=== PATIENT | female | born 1950 | race Caucasian/White ===

== ENCOUNTER 2017-10-03 10:52 | Emergency (ER) | payer OTHER ==
[~2017-10-03] VITALS: Ht 162.6 cm; Wt 76.6 kg
[2017-10-03 10:57] VITALS: TEMP 36.7; Ht 162.6 cm; Wt 76.6 kg
--- NOTE | 2017-10-03 11:26 | EMERGENCY ROOM VISIT NOTE ---
History Report prepared by Karley: Deja Ybarra Under the Supervision of: Dr. Jose Martin Marroquin M.D. First contact with patient: 11:05 Chief Complaint: SWELLING TO EXTREMITY Stated Complaint: LEG LACERATION - POSSIBLE INFECTION Nursing Triage Summary: Right kimball laceration that had sutures removed 6 days ago. Has been on keflex and doxycycline, but RLE infection not improving. RLE edema, erythema, and pain. 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 Positive erythema, pain. Negative fevers, chills, history of blood clots. The patient reports she got a cut on her leg by slipping off a bench. 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 She has been on Keflex and doxycycline , but her infection is not improving. The patient is also taking Tylenol which she states slightly alleviates her pain. 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 Review of Systems See HPI for pertinent positives and negatives. A total of ten systems were reviewed and were otherwise negative. Past Medical & Surgical Medical Problems: (1) Cancer Family History Cancer Heart disease Social History Smoking Status: Never Smoker Alcohol Use: none Drug Use: none Marital Status: Housing Status: lives with significant other Occupation Status: retired Current/Historical Medications Scheduled Calcium/Vitamin D (Os-Gabriele 500 Plus D), 1 TAB PO DAILY Doxycycline (Monohydrate) (Doxycycline), 1 TAB PO BID Furosemide (Lasix), 1 TAB PO DAILY Letrozole (Femara), 2.5 MG PO DAILY Scheduled PRN Acetaminophen (Tylenol), 1,000 MG PO UD PRN for Pain Allergies Coded Allergies: Sulfa Drugs (Verified Allergy, Unknown, 10/03/17) Physical Exam Vital Signs Date Time Temp Pulse Resp B/P (MAP) Pulse Ox O2 Delivery O2 Flow Rate FiO2 10/03/17 13:17 80 10/03/17 13:15 72 17 128/82 95 10/03/17 12:26 76 17 121/89 95 Room Air 10/03/17 10:57 36.7 83 18 149/84 98 Room Air Physical Exam GENERAL: Awake, alert, well-appearing, NAD HENT: Normocephalic, atraumatic. EYES: Normal conjunctiva. Sclera non-icteric. PERRL. No anisocoria. NECK: Supple. No nuchal rigidity. FROM. RESPIRATORY: CTAB, no rhonchi, wheezing, crackles CARDIAC: RRR, no MRG ABDOMEN: Soft, NTND, BS+ MSK: No chest wall TTP, 1+ BLE edema. NEURO: GCS 15, CN 2-12 intact, moves all 4s on command SKIN: No rash or jaundice noted. Healing 6 cm laceration over the R anterior mid tibia. Mild surrounding redness. Mild pain, no calor, no purulent drainage, no induration, no fluctuance. Medical Decision & Procedures Laboratory Results 10/03/17 11:30 Red Blood Count 4.38, Mean Corpuscular Volume 86.1, Mean Corpuscular Hemoglobin 29.0, Mean Corpuscular Hemoglobin Concent 33.7, Mean Platelet Volume 9.6, Neutrophils (%) (Auto) 59.0, Lymphocytes (%) (Auto) 26.0, Monocytes (%) (Auto) 5.7, Eosinophils (%) (Auto) 8.6, Basophils (%) (Auto) 0.5, Neutrophils # (Auto) 3.22, Lymphocytes # (Auto) 1.42, Monocytes # (Auto) 0.31, Eosinophils # (Auto) 0.47, Basophils # (Auto) 0.03 10/03/17 11:30 Test 10/03/17 11:30 White Blood Count 5.46 K/uL (4.8-10.8) Red Blood Count 4.38 M/uL (4.2-5.4) Hemoglobin 12.7 g/dL (12.0-16.0) Hematocrit 37.7 % (37-47) Mean Corpuscular Volume 86.1 fL (80-100) Mean Corpuscular Hemoglobin 29.0 pg (25-34) Mean Corpuscular Hemoglobin Concent 33.7 g/dl (32-36) Platelet Count 222 K/uL (130-400) Mean Platelet Volume 9.6 fL (7.4-10.4) Neutrophils (%) (Auto) 59.0 % Lymphocytes (%) (Auto) 26.0 % Monocytes (%) (Auto) 5.7 % Eosinophils (%) (Auto) 8.6 % Basophils (%) (Auto) 0.5 % Neutrophils # (Auto) 3.22 K/uL (1.4-6.5) Lymphocytes # (Auto) 1.42 K/uL (1.2-3.4) Monocytes # (Auto) 0.31 K/uL (0.11-0.59) Eosinophils # (Auto) 0.47 K/uL (0-0.5) Basophils # (Auto) 0.03 K/uL (0-0.2) RDW Standard Deviation 43.1 fL (36.4-46.3) RDW Coefficient of Variation 13.7 % (11.5-14.5) Immature Granulocyte % (Auto) 0.2 % Immature Granulocyte # (Auto) 0.01 K/uL (0.00-0.02) Anion Gap 6.0 mmol/L (3-11) Est Creatinine Clear Calc Drug Dose 93.4 ml/min Estimated GFR () 111.0 Estimated GFR (Non- 95.8 BUN/Creatinine Ratio 25.3 (10-20) Calcium Level 8.9 mg/dl (8.5-10.1) Laboratory results reviewed by me Medications Administered Medications (Trade) Dose Ordered Sig/Pricilla Route Start Time Stop Time Status Last Admin Dose Admin Acetaminophen/ Hydrocodone Bitart ([place] 5/325 Tab) 1 tab ONE PRN PO 10/03/17 11:30 10/03/17 15:17 DC 10/03/17 11:54 1 TAB ED Course 1114: The patient was evaluated in room C5. A complete history and physical exam was performed. 1222: I reevaluated the patient. Discussed results and discharge instructions: She verbalized understanding and agreement. The patient is ready for discharge. 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 Positive erythema, pain. Negative fevers, chills, history of blood clots. Nursing notes reviewed. Ancillary studies and prior records reviewed. Differential diagnosis: Etiologies such as cellulitis, abscess, MRSA infection, DVT, necrotizing fasciitis, dermatitis, drug eruption, as well as others were entertained.. Patient was seen and evaluated the bedside. Patient presented with concern for possible wound infection. The patient had been complaining some right lower extremity edema. The patient has suffered a cut. The patient had been started on Keflex which had been changed to doxycycline approximate 5 days before being switched and had stopped taking the Keflex. Patient did describe may be some serous or sanguinous drainage. She did have some mild discomfort. On exam the wound itself looks well-appearing there is no purulent drainage. Patient does have some mild erythema but it is not warm. No induration or fluctuance. I discussed the with the patient that given that she is 5 days into her 10 day course of doxy and with a fairly well-appearing wound what we could do is obtain some blood work to further evaluate. Patient is agreement with the plan of care. Patient did have a work completed which showed normal white blood cell count. I did explain this to the patient. Given that the patient's wound looks well I think her redness is more related just to the wound as an injury and not so much as infection if so it is localized and the patient does not have an elevated white blood cell count or other systemic symptoms like fevers, chills, or change in blood pressure. Patient was told that she should keep the wound covered with antibiotic ointment and then do a daily dressing change. Patient was told not to soak the extremity. Patient was told she should keep the extremity wrapped and that she could change the dressing daily after she showers. Patient told gentle soap and water is fine. Patient is agreement with plan of care. Patient was given strict follow-up, discharge, and return precautions. All questions were answered. Patient was deemed suitable for outpatient follow-up at this time. Patient agreed with the plan of care and was safely discharged home. Medication Reconcilliation Current Medication List: was personally reviewed by me Blood Pressure Screening Patient's blood pressure: Elevated blood pressure Blood pressure disposition: Elevated BP felt to be situational Impression Primary Impression: Encounter for wound care Additional Impressions: Leg pain Leg swelling Scribe Attestation The scribe's documentation has been prepared under my direction and personally reviewed by me in its entirety. I confirm that the note above accurately reflects all work, treatment, procedures, and medical decision making performed by me. Departure Information Dispostion Home / Self-Care Referrals Issac Greenfield M.D. (PCP) Forms HOME CARE DOCUMENTATION FORM, IMPORTANT VISIT INFORMATION, WORK / SCHOOL INSTRUCTIONS Patient Instructions ED Wound Care, [facility] Additional Instructions Please return to the emergency department if you have worsening or recurrent symptoms not amenable to at-home treatment. Please call for a follow-up appointment with her primary care physician. Please take your medications as prescribed. If you have other concerns and/or complaints please feel free to also call your primary care physician's office or return the ED for further evaluation, management, and treatment. You may take 400 mg Ibuprofen every 12 hours as needed for pain/fever with food unless told by your physician not to take NSAIDs. You may take tylenol 500 mg every 6 hours as needed for pain/fever unless told by your physician to not take it or have liver problems. You may take motrin and tylenol separately or at the same time. Please continue wound care. Please apply antibiotic ointment. Please do a daily dressing change. Please keep your wound covered at all times. Please consider compression stockings for lower extremity swelling. Please make a follow-up appointment with your PCP for next Friday for wound check. Please return if you have worsening redness, swelling, or purulent foul-smelling drainage. Take your medications as prescribed. If taking an antibiotic consider taking a probiotic and/or eating yogurt, but at the least, please take with food as it can cause upset stomach. You have been examined and treated today on an emergency basis only. This is not a substitute for, or an effort to provide, complete comprehensive medical care. It is impossible to recognize and treat all injuries or illnesses in a single emergency department visit. It is therefore important that you follow up closely with [facility], your PCP, and/or your specialist(s). Call as soon as possible for an appointment. Thank you for your time and consideration. I look forward to speaking with you again soon. Please don't hesitate to call us if you have any questions. Problem Qualifiers Additional Impressions: Leg pain Laterality: right Qualified Codes: M79.604 - Pain in right leg
[2017-10-03] MEDS ORDERED: HYDROCODONE/ACETAMIN 5/325MG TAB PO PRN (11:30)
[2017-10-03] MEDS ORDERED: LETR2TAB PO (11:42)
[2017-10-03] MEDS ORDERED: ACET-1256 PO (11:42)
[2017-10-03] MEDS ORDERED: FURO-85 PO (11:42)
[2017-10-03] MEDS ORDERED: CALC500C70 PO (11:42)
[2017-10-03] MEDS ORDERED: DOXY-369 PO (11:42)
[2017-10-03 11:49] LABS: BASO % 0.5 %; BASO ABS # 0.03 K/uL (0-0.2); EOS % 8.6 %; EOS ABS # 0.47 K/uL (0-0.5); HEMATOCRIT 37.7 % (37-47); HEMOGLOBIN 12.7 g/dL (12.0-16.0); IG# 0.01 K/uL (0.00-0.02); LYMPH ABS # 1.42 K/uL (1.2-3.4); MEAN CELL VOLUME 86.1 fL (80-100); MEAN CORPUSCULAR HGB CONC 33.7 g/dl (32-36); MEAN PLATELET VOLUME 9.6 fL (7.4-10.4); MONO % 5.7 %; MONO ABS # 0.31 K/uL (0.11-0.59); NEUT ABS # 3.22 K/uL (1.4-6.5); PLATELET COUNT 222 K/uL (130-400); RED CELL DISTRIBUTION WIDTH CV 13.7 % (11.5-14.5); RED CELL DISTRIBUTION WIDTH SD 43.1 fL (36.4-46.3); WHITE BLOOD COUNT 5.46 K/uL (4.8-10.8)
[2017-10-03 12:05] LABS: CALCIUM 8.9 mg/dl (8.5-10.1); CREATININE 0.61 mg/dl (0.60-1.20); POTASSIUM 3.8 mmol/L (3.5-5.1)
[2017-10-03 13:15] VITALS: BP 128/82; O2SAT 95
[2017-10-03 13:17] VITALS: PULSE 80
== END 2017-10-03 13:15 | disposition home or self-care (01) ==
LOC: C.EDB 10:54 → C.EDC 13:15
DX: Z48.00 Encounter for change or removal of nonsurgical wound dressing (principal); M79.604 Pain in right leg; R60.9 Edema, unspecified; Z88.2 Allergy status to sulfonamides

== ENCOUNTER 2019-09-22 15:28 | Inpatient (IN) ==
[2019-09-22 16:35] LABS: Basophils # (auto) 0.07 K/uL (0-0.2); Basophils % (auto) 1.6 %; Eosinophils # (auto) 0.13 K/uL (0-0.5); Eosinophils % (auto) 2.9 %; Hematocrit (blood only) 36.5 % (37-47); Hemoglobin 12.9 g/dL (12.0-16.0); Immature Granulocytes # (auto) 0.02 K/uL (0.00-0.02); Immature Granulocytes % (auto) 0.4 %; Lymphocytes # (auto) 0.98 K/uL (1.2-3.4); Lymphocytes % (auto) 21.9 %; Mean Corpuscular Hemoglobin 31.2 pg (25-34); Mean Corpuscular Hgb Conc 35.3 g/dL (32-36); Mean Corpuscular Volume 88.4 fL (80-100); Mean Platelet Volume 10.5 fL (7.4-10.4); Monocytes # (auto) 0.57 K/uL (0.11-0.59); Monocytes % (auto) 12.8 %; Neutrophils % (auto) 60.4 %; Platelet Count 168 K/uL (130-400); RDW Coefficient of Variation 15.2 % (11.5-14.5); RDW Standard Deviation 48.6 fL (36.4-46.3); Red Blood Count 4.13 M/uL (4.2-5.4); White Blood Count 4.47 K/uL (4.8-10.8)
[2019-09-22 16:46] LABS: INR 0.9 (0.9-1.1); Partial Thromboplastin Ratio 0.9; Partial Thromboplastin Time 24.7 Seconds (21.0-31.0)
[2019-09-22 16:53] LABS: Alanine Aminotransferase 33 U/L (12-78); Albumin Level 1.9 gm/dl (3.4-5.0); Aspartate Aminotransferase 39 U/L (15-37); BUN Creatinine Ratio 29.9 (10-20); Blood Urea Nitrogen 32 mg/dl (7-18); Carbon Dioxide 36 mmol/L (21-32); Chloride 90 mmol/L (98-107); Est GFR (African American) 62.7; Est GFR (Non-African American) 54.1; Glucose 111 mg/dl (70-99); Potassium 2.8 mmol/L (3.5-5.1); Sodium 135 mmol/L (136-145)
--- NOTE | 2019-09-22 16:58 | XRay Report ---
XR chest 1V portable CLINICAL HISTORY: Dyspnea COMPARISON STUDY: 09/22/2018 FINDINGS: The heart is enlarged. There is a left-sided A-Port catheter. There is aortic tortuosity. T here is mild prominence of mediastinum, likely secondary to slight film rotation in the AP technique. There is mild interstitial thickening. There is no lobar consolidation. There are no significant ple ural effusions.[ IMPRESSION: 1. Cardiomegaly and mild nonspecific interstitial thickening. No evidence of focal pulmonary consolid ation ACT 112: Negative or not required by law. Electronically signed by: Edgardo Bermudez M.D. 09/22/2019 4:56 PM
[2019-09-22 17:05] LABS: Albumin Globulin Ratio 0.5 (0.9-2); Alkaline Phosphatase 132 U/L (45-117); Bilirubin,Total 0.3 mg/dl (0.2-1); Globulin 3.7 gm/dl (2.5-4.0); Total Protein 5.6 gm/dl (6.4-8.2); Troponin I < 0.015 ng/ml (0-0.045)
[2019-09-22] MEDS ORDERED: POTASSIUM CHLORIDE / WTR 10 MEQ/100 ML PLCT IV ONE (17:24)
--- NOTE | 2019-09-22 17:44 | Emergency Department Note ---
Impression & Plan Bilateral pulmonary embolism, Hypokalemia ED Provider Note NAME: ALFIE EATON AGE: 68 SEX: F ARRIVES VIA: Walk-In INFORMANT: [Patient] patient's daughter ED PROVIDER(S): Franklyn Pugh MD CHIEF COMPLAINT: Pulmonary emboli PLAN: Disposition: Admit Condition: [Good] MEDICAL DECISION MAKING: Patient presented to the emergency department by direction of her oncology team. She had CT imaging done today at [facility] and was found to have bilateral pulmonary emboli. She was hemodynamically stable. An IV was established. Blood work was performed. The patient has hypokalemia noted on her chemistry panel. She was given IV potassium. I did discuss the case with her providers at [place]. They felt she could be admitted here. I discussed the case with the [facility] team. The patient will be admitted here for further management and anticoagulation. I refer you to their notes for details on admission and anticoagulation. Triage Nursing notes reviewed and agree them. [Additional history obtained from] patient's daughter and [facility] [Prior medical records reviewed] outpatient CT imaging was concerning for bilateral pulmonary emboli. Vital Signs: reviewed and remarkable for [no significant abnormalities] Differential diagnosis: Pulmonary emboli, hypercoagulability, DVT, cardiac ischemia, aortic dissection, pneumonia, pericarditis, myocarditis, esophageal rupture, GERD, cholecystitis, pancreatitis, musculoskeletal, as well as other pathologies. ER treatment provided: IV potassium Diagnostics interpreted by me: ECG: Rate: 90 Rhythm:Normal sinus [place]:Normal QRS:Normal ST segements:No elevation or depression Other:No PACs or PVCs. Inferior and anterior Q waves. Cardiac Monitoring: Cardiac monitoring ordered by me: The patient was placed on continuous cardiac monitoring and observed. It revealed a normal sinus rhythm at 89 beats per minute without ectopy or evidence of dysrhythmia. Laboratory studies: [See below] an unremarkable CBC. Chemistry panel reveals hypokalemia Consultation(s): Consultation made with the [facility] service. Discussed case with Hyun palma NP. Patient will be admitted under Dr. Meneses. HPI: 68/F arrives for evaluation of an abnormal outpatient CT scan. The patient is under the care of Dr. Vincent at [facility] and [facility] [address]. The patient has amyloidosis. She was undergoing CT imaging today at [place]. The patient and daughter were notified after she had left that bilateral pulmonary emboli were noted. The patient denies any shortness of breath or chest pain. The patient's daughter does note that she had some occasional shortness of breath over the last few weeks. The patient notes no aggravating or relieving factors. She took no medications prior to arrival at the ER. Pt denies LOC, headache, fevers, chills, diaphoresis, visual changes, neck pain, chest pain, nausea, vomiting, abdominal pain, back pain, melena, hematochezia, urinary symptoms, numbness, weakness, lymphadenopathy, rash, or other complaints. ROS: See above HPI for pertinent positives & negatives. A total of [10] systems reviewed and were otherwise negative. PAST MEDICAL HISTORY:[See Below] amyloidosis PAST SURGICAL HISTORY:[See Below][employer] FAMILY HISTORY:[See Below] SOCIAL HISTORY:[See Below] lives with family HOME MEDICATIONS:[See Below] ALLERGIES:[See Below] VITALS:[See Below] PHYSICAL EXAMINATION: GENERAL: Awake, alert, well-appearing, in no distress HENT: Normocephalic, atraumatic. Oropharynx unremarkable. EYES: Normal conjunctiva. Sclera non-icteric. NECK: Inspection normal. Non-tender. Supple. No nuchal rigidity. FROM. No masses. RESPIRATORY: Clear to auscultation. No wheezes. No rales. Normal respiratory effort. CARDIAC: Normal rate. Normal rhythm. No murmurs. No rubs. Extremities warm and well perfused. Pulses equal. No JVD. GI: Soft, non-distended. No tenderness to palpation. No rebound or guarding. No masses. RECTAL: Deferred. MUSCULOSKELETAL: Atraumatic. Chest examination reveals no tenderness. The back is symmetrical on inspection without obvious abnormality. There is no CVA tenderness to palpation. No joint edema. LOWER EXTREMITIES: 1+ edema. Right calf is slightly larger than the left. No discoloration. NEURO: Normal sensorium. No sensory or motor deficits noted. SKIN: No rash or jaundice noted. ED COURSE: [Critical Care:] No critical care time. Franklyn Pugh MD Past Med/Surg History Medical History (Updated 09/22/19 @ 17:42 by Franklyn Pugh MD) Asthma Wells's palsy Chronic cough Elevated d-dimer Encephalitis Hemoptysis Myopathic disease Restless leg syndrome Wheezing Family History (Updated 12/18/18 @ 11:12 by Vanesa Wu) Family/Other No pertinent family history Social History (Updated 12/18/18 @ 11:10 by Vanesa Wu) Feels Safe at Home: Yes Smoking Status: Never smoker Hx Alcohol Use: No Allergies Allergies Allergy/AdvReac Type Severity Reaction Status Date / Time Sulfa (Sulfonamide Allergy Unknown Rash Verified 09/22/19 17:00 Antibiotics) Home Meds Home Medications Medication Instructions Recorded Confirmed anastrozole 1 mg tablet 1 mg PO DAILY tab 12/14/18 09/22/19 calcium carbonate 600 mg (1,500 2 tab PO DAILY tab 12/14/18 09/22/19 mg)-vitamin D3 200 unit tablet acetaminophen 500 mg PO Q6H PRN MDD 2000 MG/DAY 09/22/19 09/22/19 acyclovir 400 mg PO BID 09/22/19 09/22/19 albuterol sulfate 2.5 mg INHALATION Q4H PRN 09/22/19 09/22/19 albuterol sulfate [ProAir HFA] 2 puff INHALATION Q4H PRN 09/22/19 09/22/19 aspirin 81 mg PO QAM 09/22/19 09/22/19 benzonatate 100 mg PO TID PRN 09/22/19 09/22/19 bumetanide 1 mg PO BID 09/22/19 09/22/19 bumetanide 4 mg PO BID 09/22/19 09/22/19 [id number]-[id number]-[id number] 1 cap PO Q12H PRN 09/22/19 09/22/19 lorazepam See Rx Instructions .ROUTE .COMPLEX 09/22/19 09/22/19 metolazone See Rx Instructions .ROUTE .COMPLEX 09/22/19 09/22/19 metoprolol succinate 12.5 mg PO QAM 09/22/19 09/22/19 potassium chloride 40 meq PO TID 09/22/19 09/22/19 prochlorperazine maleate 10 mg PO .Q4-6HRS PRN 09/22/19 09/22/19 Results & Data (ED) Vital Signs Vital Signs - 24 hr 09/22/19 15:32 09/22/19 15:46 09/22/19 16:00 Temperature 37.1 C Temperature Source Oral Pulse Rate 99 H 90 90 Pulse Rate from SpO2 Sensor Respiratory Rate 22 14 18 Blood Pressure 99/72 L Blood Pressure Mean 81 Blood Pressure Position Sitting Pulse Oximetry 94 Oxygen Delivery Method Room Air Sepsis Recent Fever Within 48 Hours No Sepsis Action Taken by Nursing No Action Required 09/22/19 16:28 09/22/19 16:29 09/22/19 16:30 Temperature Temperature Source Pulse Rate 85 83 Pulse Rate from SpO2 Sensor 85 83 Respiratory Rate 13 17 Blood Pressure 111/71 108/72 Blood Pressure Mean 82 79 Blood Pressure Position Pulse Oximetry 93 91 Oxygen Delivery Method Room Air Sepsis Recent Fever Within 48 Hours Sepsis Action Taken by Nursing 09/22/19 16:40 09/22/19 16:50 09/22/19 17:00 Temperature Temperature Source Pulse Rate 82 81 80 Pulse Rate from SpO2 Sensor 82 81 80 Respiratory Rate 18 18 18 Blood Pressure 122/66 Blood Pressure Mean 85 Blood Pressure Position Pulse Oximetry 91 91 93 Oxygen Delivery Method Room Air Room Air Room Air Sepsis Recent Fever Within 48 Hours Sepsis Action Taken by Nursing 09/22/19 17:10 09/22/19 17:20 09/22/19 17:30 Temperature Temperature Source Pulse Rate 79 77 80 Pulse Rate from SpO2 Sensor 79 77 81 Respiratory Rate 18 21 20 Blood Pressure 112/64 Blood Pressure Mean 74 Blood Pressure Position Pulse Oximetry 93 92 96 Oxygen Delivery Method Room Air Room Air Room Air Sepsis Recent Fever Within 48 Hours Sepsis Action Taken by Nursing 09/22/19 17:40 Temperature Temperature Source Pulse Rate 79 Pulse Rate from SpO2 Sensor 79 Respiratory Rate 23 Blood Pressure Blood Pressure Mean Blood Pressure Position Pulse Oximetry 94 Oxygen Delivery Method Room Air Sepsis Recent Fever Within 48 Hours Sepsis Action Taken by Nursing Laboratory Data Result diagrams: 09/22/19 16:25 09/22/19 16:25 Lab Results 09/22/19 09/22/19 09/22/19 Range/Units 16:25 16:25 16:25 WBC 4.47 L (4.8-10.8) K/uL RBC 4.13 L (4.2-5.4) M/uL Hgb 12.9 (12.0-16.0) g/dL Hct 36.5 L (37-47) % MCV 88.4 (80-100) fL MCH 31.2 (25-34) pg MCHC 35.3 (32-36) g/dL RDW Std Deviation 48.6 H (36.4-46.3) fL RDW Coeff of Sanchez 15.2 H (11.5-14.5) % Plt Count 168 (130-400) K/uL MPV 10.5 H (7.4-10.4) fL Immature Gran % (Auto) 0.4 % Neut % (Auto) 60.4 % Lymph % (Auto) 21.9 % [place] % (Auto) 12.8 % Eos % (Auto) 2.9 % Baso % (Auto) 1.6 % Immature Gran # (Auto) 0.02 (0.00-0.02) K/uL Neut # (Auto) 2.70 (1.4-6.5) K/uL Lymph # (Auto) 0.98 L (1.2-3.4) K/uL [place] # (Auto) 0.57 (0.11-0.59) K/uL Eos # (Auto) 0.13 (0-0.5) K/uL Baso # (Auto) 0.07 (0-0.2) K/uL PT 10.0 (9.0-12.0) Seconds INR 0.9 (0.9-1.1) APTT 24.7 (21.0-31.0) Seconds PTT Ratio 0.9 Sodium 135 L (136-145) mmol/L Potassium 2.8 L (3.5-5.1) mmol/L Chloride 90 L (98-107) mmol/L Carbon Dioxide 36 H (21-32) mmol/L Anion Gap 9.0 (3-11) BUN 32 H (7-18) mg/dl Creatinine 1.07 (0.6-1.2) mg/dl Est Cr Clr Drug Dosing Not Reportable Est GFR ( Amer) 62.7 Est GFR (Non-Af Amer) 54.1 BUN/Creatinine Ratio 29.9 H (10-20) Glucose 111 H (70-99) mg/dl Calcium 8.0 L (8.5-10.1) mg/dl Total Bilirubin 0.3 (0.2-1) mg/dl AST 39 H (15-37) U/L ALT 33 (12-78) U/L Alkaline Phosphatase 132 H (45-117) U/L Troponin I < 0.015 (0-0.045) ng/ml Total Protein 5.6 L (6.4-8.2) gm/dl Albumin 1.9 L (3.4-5.0) gm/dl Globulin 3.7 (2.5-4.0) gm/dl Albumin/Globulin Ratio 0.5 L (0.9-2) Specimen Hemolysis Administered Medications Potassium Chloride (K Servando / Wtr) 10 meq in 100 mls @ 100 mls/hr IV ONE ONE Stop: 09/22/19 18:23 Last Admin: 09/22/19 17:39 Dose: 100 mls/hr Documented by: [id number] Discharge Plan Visit Data Chief Complaint: Illness Stated Complaint: SENT BY , BLOOD CLOTS ED Provider: Franklyn Pugh Discharge Problem: Bilateral pulmonary embolism, Hypokalemia Forms Stand Alone Forms: [facility] [email or web address] [email or web address] Prescriptions Prescriptions: No Action calcium carbonate-vitamin D3 600 mg(1,500mg) -200 unit tablet 2 tab PO DAILY RF: 0 anastrozole 1 mg tablet 1 mg PO DAILY RF: 0 metolazone 2.5 mg tablet See Rx Instructions .ROUTE .COMPLEX RF: 0 bumetanide 2 mg tablet 4 mg PO BID RF: 0 albuterol sulfate 2.5 mg /3 mL (0.083 %) Solution For Nebulization 2.5 mg INHALATION Q4H PRN (Reason: Shortness Of Breath Or Wheezing) RF: 0 potassium chloride 10 mEq tablet extended release 40 meq PO TID RF: 0 prochlorperazine maleate 10 mg tablet 10 mg PO .Q4-6HRS PRN (Reason: Nausea And Vomiting) RF: 0 acyclovir 400 mg tablet 400 mg PO BID RF: 0 aspirin 81 mg Tablet,Delayed Release (Dr/Ec) 81 mg PO QAM RF: 0 acetaminophen 500 mg Tablet 500 mg PO Q6H MDD 2000 MG/DAY PRN (Reason: Pain) RF: 0 lorazepam 0.5 mg tablet See Rx Instructions .ROUTE .COMPLEX RF: 0 benzonatate 100 mg capsule 100 mg PO TID PRN (Reason: Cough) RF: 0 bumetanide 1 mg tablet 1 mg PO BID RF: 0 metoprolol succinate 25 mg tablet extended release 24 hr 12.5 mg PO QAM RF: 0 albuterol sulfate [ProAir HFA] 90 mcg/actuation Hfa Aerosol Inhaler 2 puff INHALATION Q4H PRN (Reason: Wheezing) RF: 0 rsjbzxpisw-afnjwrcnflmrh-lhbw 50-300-40 mg capsule 1 cap PO Q12H PRN (Reason: Headache) RF: 0
--- NOTE | 2019-09-22 18:56 | History & Physical Report ---
Date of Service September 22, 2019 Assessment & Plan (1) Bilateral pulmonary embolism: (2) Fever: (3) SOB (shortness of breath): Patient with incidental findings of multiple PE's on outpatient CT of the Chest. She has had SOB, HOLMAN, and weakness x 2-3 weeks. She thought this was from her chemotherapy. No chest pain. Vitals stable. No history of clots. Admit to Med/Surg with Tele. Continue to monitor vitals. Check Venous Doppler B/L LE to R/O DVT as source She also had fever yesterday and previously this week- possibly due to chemo and/or PE's, but also consider infection with immunosuppression. Start Cefepime pending further workup and improvement. Start Lovenox. Briefly discussed anticoag options with Dr. Vincent, the patient's oncologist. He agreed with Lovenox because they may be planning for bone marrow bx soon as an outpatient. (4) Hypokalemia: Potassium 2.8 on presentation. Given 10 meQ K+ IV in the ED. Add PO Potassium 40 meq now and again in 3 hours. Repeat potassium after 2nd dose. Repeat BMP in the AM (5) DVT prophylaxis: Starting Lovenox as above. 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 The patient has been undergoing workup and treatment for amyloidosis by oncology, and she had a routine CT of the Chest/Abd/Pelvis today which showed pulmonary emboli in the distal right main pulmonary artery extending into segmental right upper lobe pulmonary arteries along with smaller left upper segmental and left lower lobar pulmonary emboli. She has no history of blood clots or family history of clots that she knows of. She has history of metastatic breast CA for which she had a partial mastectomy in 2012. She continues routine f/u with Dr. Jacinto in [place] for her breast CA and is on Arimidex. She has had some SOB, HOLMAN, and weakness for about 2 weeks. She thought this was likely related to her chemotherapy. She didn't think much of it. She hasn't had any cough or chest pain. No palpitations, N/V/D/C, abdominal pain, or urinary symptoms. She has chronic lower extremity edema related to her amyloid and nephrotic syndrome. She typically takes Bumex every day and metolazone MW and if needed additional metolazone , or as needed for increased swelling or weight gain. Her appetite has been poor since starting chemotherapy, and she doens't drink enough at home. She does also note that she had a fever yesterday up to 101.1F at home. She also had a fever about 3-4 days ago of 101 F as well. It came down quickly with Tylenol. She has not been out of her house for anything other than her appointments and has no exposure to anyone with signs of COVID19. Since presentation, she was noted to have hypokalemia with K+ of 2.8. Calcium low at 8.0. Allergies Allergy/AdvReac Type Severity Reaction Status Date / Time Sulfa (Sulfonamide Allergy Unknown Rash Verified 09/22/19 17:00 Antibiotics) Home Medications Home Medications Medication Instructions Recorded Confirmed Type anastrozole 1 mg tablet 1 mg PO DAILY tab 12/14/18 09/22/19 History calcium carbonate 600 mg (1,500 2 tab PO DAILY tab 12/14/18 09/22/19 History mg)-vitamin D3 200 unit tablet acetaminophen 500 mg PO Q6H PRN MDD 2000 MG/DAY 09/22/19 09/22/19 History acyclovir 400 mg PO BID 09/22/19 09/22/19 History albuterol sulfate 2.5 mg INHALATION Q4H PRN 09/22/19 09/22/19 History albuterol sulfate [ProAir HFA] 2 puff INHALATION Q4H PRN 09/22/19 09/22/19 History aspirin 81 mg PO QAM 09/22/19 09/22/19 History bumetanide 1 mg PO BID 09/22/19 09/22/19 History bumetanide 4 mg PO BID 09/22/19 09/22/19 History jwyivfyubs-ethoeqdtfwrhr-xiux 1 cap PO Q12H PRN 09/22/19 09/22/19 History lorazepam See Rx Instructions .ROUTE .COMPLEX 09/22/19 09/22/19 History metolazone See Rx Instructions .ROUTE .COMPLEX 09/22/19 09/22/19 History metoprolol succinate 12.5 mg PO QAM 09/22/19 09/22/19 History potassium chloride 40 meq PO Q6 09/22/19 09/22/19 History prochlorperazine maleate 10 mg PO .Q4-6HRS PRN 09/22/19 09/22/19 History Past Med/Surg History Medical History (Updated 09/22/19 @ 19:27 by Melisa Knox PA-C) Asthma Wells's palsy Chronic cough Diastolic dysfunction Elevated d-dimer Encephalitis Hemoptysis History of breast cancer Myopathic disease Nephrotic syndrome Paroxysmal supraventricular tachycardia Restless leg syndrome Wheezing Surgical History (Updated 09/22/19 @ 19:27 by Melisa Knox PA-C) S/P inguinal hernia repair S/P partial mastectomy S/P LILIYA-BSO S/P tonsillectomy Family History (Updated 09/22/19 @ 19:28 by Melisa Knox PA-C) Family/Other No pertinent family history Father Heart disease Social History (Updated 12/18/18 @ 11:10 by Vanesa Wu) Feels Safe at Home: Yes Smoking Status: Never smoker Hx Alcohol Use: No Review of Systems Review of Systems: All systems reviewed & are unremarkable except as noted in HPI & below Physical Exam Constitutional: well nourished and + obese; no acute distress and no altered mental status ENMT: external ear and nose normal, oropharynx normal Left sided Wells's palsy- chronic Neck: trachea midline, no thyromegaly Cardiovascular: Rate/Rhythm: regular rate and regular rhythm Heart Sounds: + murmur (faint systolic) Gastrointestinal (Abdomen): normal bowel sounds, soft, nontender, no hepatosplenomegaly Musculoskeletal: Edema B/L LE. Right lower extremity with erythema and mild warmth. Slight tenderness to palpation of both legs- patient states this is unchanged from baseline. Skin: no rashes Trauma: no laceration Erythema RLE. Chronic appearing darkening of skin of the B/L Neurologic: Wells's palsy as mentioned above Psychiatric: A+Ox3, euthymic affect Results & Data Results & Data ([facility]) Vital Signs (Past 12 Hours) Vital Signs Temp Pulse Resp BP Pulse Ox 09/22/19 18:40 80 20 91 09/22/19 18:30 85 20 107/67 95 09/22/19 18:20 82 24 91 09/22/19 18:10 82 24 92 09/22/19 18:00 82 15 111/63 92 09/22/19 17:50 80 21 95 09/22/19 17:40 79 23 94 09/22/19 17:30 80 20 112/64 96 09/22/19 17:20 77 21 92 09/22/19 17:10 79 18 93 09/22/19 17:00 80 18 122/66 93 09/22/19 16:50 81 18 91 09/22/19 16:40 82 18 91 09/22/19 16:30 83 17 108/72 91 09/22/19 16:28 85 13 111/71 93 09/22/19 16:00 90 18 09/22/19 15:46 90 14 09/22/19 15:32 37.1 C 99 H 22 99/72 L 94 Laboratory Results Laboratory Results - last 24 hr 09/22/19 09/22/19 09/22/19 16:25 16:25 16:25 WBC 4.47 L RBC 4.13 L Hgb 12.9 Hct 36.5 L MCV 88.4 MCH 31.2 MCHC 35.3 RDW Std Deviation 48.6 H RDW Coeff of Sanchez 15.2 H Plt Count 168 MPV 10.5 H Immature Gran % (Auto) 0.4 Neut % (Auto) 60.4 Lymph % (Auto) 21.9 [place] % (Auto) 12.8 Eos % (Auto) 2.9 Baso % (Auto) 1.6 Immature Gran # (Auto) 0.02 Neut # (Auto) 2.70 Lymph # (Auto) 0.98 L [place] # (Auto) 0.57 Eos # (Auto) 0.13 Baso # (Auto) 0.07 PT 10.0 INR 0.9 APTT 24.7 PTT Ratio 0.9 Sodium 135 L Potassium 2.8 L Chloride 90 L Carbon Dioxide 36 H Anion Gap 9.0 BUN 32 H Creatinine 1.07 Est Cr Clr Drug Dosing Not Reportable Est GFR ( Amer) 62.7 Est GFR (Non-Af Amer) 54.1 BUN/Creatinine Ratio 29.9 H Glucose 111 H Calcium 8.0 L Total Bilirubin 0.3 AST 39 H ALT 33 Alkaline Phosphatase 132 H Troponin I < 0.015 Total Protein 5.6 L Albumin 1.9 L Globulin 3.7 Albumin/Globulin Ratio 0.5 L Specimen Hemolysis Diagnostic Findings CHEST CT W/CONTRAST (09/22/19 performed at [facility]): IMPRESSION 1. Pulmonary emboli involving distal right main pulmonary artery extending into segmental right upper lobe pulmonary arteries. Much smaller left upper segmental and left lower lobar pulmonary emboli. 2. Nonspecific trace pericardial effusion. Otherwise, no other evidence of disease in the chest. 3. Hepatosplenomegaly. 4. Ascending thoracic aortic aneurysm measuring 3.9 x 4.1 cm. Correlate with outside imaging if available. Follow-up is suggested. 5. Low-density right thyroid nodule measuring 1.1 x 1.2 cm. Correlate with outside imaging if available. If none available, suggest outpatient thyroid ultrasound for further evaluation. 6. Diffuse bowel wall thickening involving the colon (predominately involving sigmoid colon) may be related to partial collapse of the bowel; however, differential includes colitis (including C difficile pancolitis). Correlate clinically. No evidence of bowel obstruction. CXR: IMPRESSION: 1. Cardiomegaly and mild nonspecific interstitial thickening. No evidence of focal pulmonary consolidation Code Status & VTE Plan VTE Prophylaxis Plan VTE Prophylaxis will be ordered: No Supervising Physician Co-Signing Physician Notes I, Dr. Robbie Meneses, have seen the patient Valencia Gallardo with physician radiology physician assistant and would like to comment that: On physical exam General: no acute distress Lungs: on nasal cannula, no wheezing Heart: regular rate Abdomen: soft, nontender, positive bowel sounds Assessment and Plan AMYLOIDOSIS BILATERAL PULMONARY EMBOLISM FEVER HYPOKALEMIA -This is a patient on chemotherapy of amyloidosis with bilateral pulmonary embolism. Currently we will anti-coagulate patient on Lovenox subcutaneous BID and monitor in case of any bleeding risks. Patient will planned for outpatient bone marrow biopsy as outpatient. Because of recent fevers, blood cultures are drawn and cefepime started empirically in a potentially immunocompromised patient on chemotherapy. Target serum potassium of 3.5 to 4, replete with potassium supplements as needed. -agree with other assessment and plans as documented by physician radiology physician assistant My colleague Jayleen Guardado will be following the patient as hospitalist starting on 09/23/2019
[2019-09-22] MEDS: POTASSIUM CHLORIDE 20 MEQ TABCR PO SCH ×2 (18:59→22:15)
--- NOTE | 2019-09-22 20:17 | Ultrasound Report ---
US venous doppler LE BI CLINICAL HISTORY: Bilateral PE COMPARISON STUDY: No previous studies for comparison. FINDINGS: Grayscale, color-flow, and Doppler spectral waveform analysis was performed. On the right, the veins were fully compressible from the groin through the popliteal vein. There was normal augmentation. There is normal color flow within the proximal trifurcation veins of the right c fdc. On the left, the common femoral and superficial femoral veins appear patent. There is nonocclusive th rombus within the left popliteal vein. This appears acute. No thrombus is visualized within the proxi mal trifurcation veins of the calf. IMPRESSION: 1. Acute left popliteal vein DVT 2. No evidence of right lower extremity DVT ACT 112: Negative or not required by law. Electronically signed by: Edgardo Bermudez M.D. 09/22/2019 8:16 PM
[2019-09-22] MEDS ORDERED: ENOXAPARIN 1 MG/KG SQ SCH (20:20)
[2019-09-22] MEDS ORDERED: LOVENOX TEACHING KIT PRN (20:20)
[2019-09-22] MEDS ORDERED: ACETAMINOPHEN 325 MG TAB PO PRN (20:20)
[2019-09-22] MEDS ORDERED: POLYETHYLENE (MIRALAX) 17 GM PACK PO PRN (20:20)
[2019-09-22] MEDS ORDERED: PATIENT'S HEIGHT AND/OR WEIGHT NEEDED SCH (20:45)
[2019-09-22] MEDS ORDERED: BUMETANIDE 1 MG TAB PO SCH ×2 (21:00)
[2019-09-22] MEDS: BUMETANIDE 1 MG TAB PO SCH (21:31)
[2019-09-22] MEDS: ENOXAPARIN 80 MG/0.8 ML SYR SQ SCH (21:32)
[2019-09-22] MEDS: CEFEPIME 2,000 MG in SYRINGE 7.5 ML IV SCH (21:32)
[2019-09-22 22:11] LABS: Appearance Urine Clear (Clear); Bacteria Urine Automated Negative (Negative); Bilirubin Urine Negative (Negative); Blood Urine Negative (Negative); Cast Urine Automated 0 /lpf (0-5); Color Urine Yellow; Glucose Urine UA Negative (Negative); Ketones Urine Negative (Negative); Leukocyte Esterase Urine Trace (Negative); Nitrite Urine Negative (Negative); Specific Gravity Urine 1.035 (1.000-1.030); Urobilinogen Urine Negative (Negative); pH Urine 7.5 (4.5-7.5)
[2019-09-22 22:19] LABS: Protein Urine 4+ (Negative); Sulfosalicylic Acid Urine Positive (Negative)
[2019-09-22 23:25] LABS: Potassium 2.8 mmol/L (3.5-5.1)
[2019-09-22 23:27] LABS: Magnesium 1.9 mg/dl (1.8-2.4)
--- NOTE | 2019-09-23 06:27 | Electrocardiogram Report ---
Test Reason : Blood Pressure : / mmHG Vent. Rate : 090 BPM Atrial Rate : 090 BPM P-R Int : 132 ms QRS Dur : 080 ms QT Int : 404 ms P-R-T Axes : 028 014 013 degrees QTc Int : 494 ms Normal sinus rhythm Possible Inferior infarct , age undetermined Anterior infarct , age undetermined Nonspecific T wave abnormality Abnormal ECG No previous ECGs available Confirmed by Irwin Claudio ([id number]) on 09/23/2019 6:27:16 AM Referred By: REFERRED SELF Confirmed By:Irwin Claudio
[2019-09-23 07:59] LABS: Hematocrit (blood only) 36.2 % (37-47); Hemoglobin 12.3 g/dL (12.0-16.0); Mean Corpuscular Hemoglobin 30.3 pg (25-34); Mean Corpuscular Volume 89.2 fL (80-100); Mean Platelet Volume 10.6 fL (7.4-10.4); Platelet Count 172 K/uL (130-400); RDW Coefficient of Variation 15.4 % (11.5-14.5); RDW Standard Deviation 49.4 fL (36.4-46.3); Red Blood Count 4.06 M/uL (4.2-5.4); White Blood Count 4.21 K/uL (4.8-10.8)
[2019-09-23 08:29] LABS: Albumin Level 1.8 gm/dl (3.4-5.0); BUN Creatinine Ratio 29.9 (10-20); Calcium 8.4 mg/dl (8.5-10.1); Creatinine Clr Calc Pharmacy 50.4 ml/min; Est GFR (African American) 71.4; Est GFR (Non-African American) 61.6
[2019-09-23 08:32] LABS: Albumin Globulin Ratio 0.5 (0.9-2); Bilirubin,Total 0.3 mg/dl (0.2-1); Globulin 3.5 gm/dl (2.5-4.0); Total Protein 5.3 gm/dl (6.4-8.2)
[2019-09-23] MEDS: METOPROLOL SUCC 25MG EXT REL TAB PO SCH (08:34)
[2019-09-23] MEDS: CALCIUM 600MG + VIT D 400 IU TAB PO SCH (08:35)
[2019-09-23] MEDS: ENOXAPARIN 80 MG/0.8 ML SYR SQ SCH ×2 (08:37→21:00)
[2019-09-23] MEDS: ANASTROZOLE 1 MG TAB PO SCH (08:37)
[2019-09-23] MEDS ORDERED: POTASSIUM CHLORIDE 20 MEQ TABCR PO STA (08:50)
[2019-09-23] MEDS: POTASSIUM CHLORIDE / WTR 10 MEQ/100 ML PLCT IV SCH ×2 (09:15→10:48)
[2019-09-23] MEDS: BUMETANIDE 1 MG TAB PO SCH ×2 (09:45→17:25)
[2019-09-23] MEDS: CEFEPIME 2,000 MG in SYRINGE 7.5 ML IV SCH (09:47)
--- NOTE | 2019-09-23 10:31 | Hospitalist Progress Note ---
Date of Service September 23, 2019 Assessment & Plan (1) Bilateral pulmonary embolism: (2) Fever: (3) SOB (shortness of breath): Bilateral Pulmonary embolism on CT PE Left Popliteal DVT on doppler Risk factors include metastatic breast cancer Fever reported likely due to DVT/PE Afebrile since admission, WBC is 4, CXR no infiltrates Antibiotics discontinued Started on Lovenox. Admitting provider had discussed anticoag options with Dr. Vincent, the patient's oncologist. He agreed with Lovenox because they may be planning for bone marrow bx soon as an outpatient. Spoke with RN to provide lovenox injection education I discussed extensively with patient about VTE, anticoagulation benefit and risks Wean off oxygen today Check 2 step ambulatory oxygen tomorrow prior to possible discharge (4) Hypokalemia: Potassium 2.8 on presentation. K today is 3 Continue aggressive repletion and monitoring For metastatic breast ca and amyloidosis, she will continue follow up with her oncologist on discharge Admission and Anticipated Discharge Date Admission Date: September 22, 2019 Subjective Patient seen and examined Denied any chest pain, cough Reports occasional fevers which she related with chemo and usually resolve with tylenol Has been afebrile since admission Reports dyspnea on exertion over the past few weeks Reports chronic leg edema is currently the best it has been over the past several months Physical Exam Constitutional: + well hydrated; no acute distress Eyes: PERRL, conjunctivae normal, anicteric sclerae ENMT: external ear and nose normal, oropharynx normal Respiratory: normal respiratory effort, lungs clear to auscultation Cardiovascular: Rate/Rhythm: regular rate and regular rhythm Heart Sounds: normal S1, normal S2 and + murmur Gastrointestinal (Abdomen): normal bowel sounds, soft, nontender, no hepatosplenomegaly Musculoskeletal: +b/L [place]LIN Neurologic: PERRL, EOMI, accommodation nl, no face palsy, no dysarthria Psychiatric: A+Ox3, euthymic affect Results & Data Results & Data ([facility]) Vital Signs (Past 12 Hours) Vital Signs Temp Pulse Pulse Pulse Resp BP Pulse Ox 09/23/19 07:20 36.6 C 75 18 102/66 94 09/23/19 07:00 76 09/23/19 02:48 37.0 C 100 H 19 117/80 92 09/23/19 00:00 85 09/22/19 23:00 36.6 C 84 20 111/73 96 Laboratory Results Short CBC 09/22/19 09/23/19 Range/Units 16:25 07:38 WBC 4.47 L 4.21 L (4.8-10.8) K/uL Hgb 12.9 12.3 (12.0-16.0) g/dL Hct 36.5 L 36.2 L (37-47) % Plt Count 168 172 (130-400) K/uL BMP 09/22/19 09/22/19 09/23/19 16:25 22:42 07:38 Sodium 135 L 135 L Potassium 2.8 L 2.8 L 3.0 L Chloride 90 L 91 L Carbon Dioxide 36 H 38 H BUN 32 H 29 H Creatinine 1.07 0.96 Glucose 111 H 99 Calcium 8.0 L 8.4 L Cardiac Enzymes 09/22/19 Range/Units 16:25 Troponin I < 0.015 (0-0.045) ng/ml Liver Function 09/22/19 09/23/19 Range/Units 16:25 07:38 Total Bilirubin 0.3 0.3 (0.2-1) mg/dl AST 39 H 39 H (15-37) U/L ALT 33 26 (12-78) U/L Alkaline Phosphatase 132 H 122 H (45-117) U/L Albumin 1.9 L 1.8 L (3.4-5.0) gm/dl Urine 09/22/19 Range/Units 22:00 Urine Color Yellow Urine Appearance Clear (Clear) Urine pH 7.5 (4.5-7.5) Ur Specific [place] 1.035 H (1.000-1.030) Urine Protein 4+ H (Negative) Urine Glucose (UA) Negative (Negative)
[2019-09-23 13:16] LABS: BUN Creatinine Ratio 27.4 (10-20); Calcium 8.5 mg/dl (8.5-10.1); Creatinine Clr Calc Pharmacy 48.3 ml/min; Est GFR (Non-African American) 58.7; Potassium 3.2 mmol/L (3.5-5.1)
[2019-09-23] MEDS ORDERED: POTASSIUM CHLORIDE 20 MEQ TABCR PO ONE (16:30)
[2019-09-24 06:16] LABS: Hematocrit (blood only) 33.9 % (37-47); Hemoglobin 11.6 g/dL (12.0-16.0); Mean Corpuscular Hemoglobin 30.4 pg (25-34); Mean Corpuscular Hgb Conc 34.2 g/dL (32-36); Mean Platelet Volume 10.7 fL (7.4-10.4); Platelet Count 176 K/uL (130-400); RDW Coefficient of Variation 15.2 % (11.5-14.5); RDW Standard Deviation 49.1 fL (36.4-46.3); Red Blood Count 3.81 M/uL (4.2-5.4); White Blood Count 4.44 K/uL (4.8-10.8)
[2019-09-24 07:03] LABS: BUN Creatinine Ratio 31.8 (10-20); Calcium 7.9 mg/dl (8.5-10.1); Est GFR (Non-African American) 58.7; Magnesium 1.5 mg/dl (1.8-2.4); Potassium 2.9 mmol/L (3.5-5.1)
[2019-09-24] MEDS ORDERED: metOLazone 2.5 MG TABLET PO SCH (09:00)
[2019-09-24] MEDS ORDERED: POTASSIUM CHLORIDE 20 MEQ TABCR PO SCH (09:00)
[2019-09-24] MEDS: ANASTROZOLE 1 MG TAB PO SCH (09:44)
[2019-09-24] MEDS: BUMETANIDE 1 MG TAB PO SCH (09:44)
[2019-09-24] MEDS: CALCIUM 600MG + VIT D 400 IU TAB PO SCH (09:44)
[2019-09-24] MEDS: POTASSIUM CHLORIDE / WTR 10 MEQ/100 ML PLCT IV SCH ×3 (09:45→13:28)
[2019-09-24] MEDS: METOPROLOL SUCC 25MG EXT REL TAB PO SCH (09:46)
[2019-09-24] MEDS: ENOXAPARIN 80 MG/0.8 ML SYR SQ SCH (09:46)
--- NOTE | 2019-09-24 10:06 | Discharge Summary ---
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 The patient has been undergoing workup and treatment for amyloidosis by oncology, and she had a routine CT of the Chest/Abd/Pelvis today which showed pulmonary emboli in the distal right main pulmonary artery extending into segmental right upper lobe pulmonary arteries along with smaller left upper segmental and left lower lobar pulmonary emboli. She has no history of blood clots or family history of clots that she knows of. She has history of metastatic breast CA for which she had a partial mastectomy in 2012. She continues routine f/u with Dr. Jacinto in [place] for her breast CA and is on Arimidex. She has had some SOB, HOLMAN, and weakness for about 2 weeks. She thought this was likely related to her chemotherapy. She didn't think much of it. She hasn't had any cough or chest pain. No palpitations, N/V/D/C, abdominal pain, or urinary symptoms. She has chronic lower extremity edema related to her amyloid and nephrotic syndrome. She typically takes Bumex every day and metolazone MWF and if needed additional metolazone , or weekends as needed for increased swelling or weight gain. Her appetite has been poor since starting chemotherapy, and she doens't drink enough at home. She does also note that she had a fever yesterday up to 101.1F at home. She also had a fever about 3-4 days ago of 101 F as well. It came down quickly with Tylenol. She has not been out of her house for anything other than her appointments and has no exposure to anyone with signs of COVID19. Since presentation, she was noted to have hypokalemia with K+ of 2.8. Calcium low at 8.0. Admission Exam Per Admitting Provider Constitutional: well nourished and + obese; no acute distress and no altered mental status ENMT: external ear and nose normal, oropharynx normal Left sided Wells's palsy- chronic Neck: trachea midline, no thyromegaly Cardiovascular: Rate/Rhythm: regular rate and regular rhythm Heart Sounds: + murmur (faint systolic) Gastrointestinal (Abdomen): normal bowel sounds, soft, nontender, no hepatosplenomegaly Musculoskeletal: Edema B/L LE. Right lower extremity with erythema and mild warmth. Slight tenderness to palpation of both legs- patient states this is unchanged from baseline. Skin: no rashes Trauma: no laceration Erythema RLE. Chronic appearing darkening of skin of the B/L Neurologic: Wells's palsy as mentioned above Psychiatric: A+Ox3, euthymic affect Principal Diagnosis Bilateral Pulmonary emboli Acute left popliteal DVT Discharge Exam Constitutional + well hydrated; no acute distress Eyes PERRL, conjunctivae normal, anicteric sclerae ENMT external ear and nose normal, oropharynx normal Respiratory normal respiratory effort, lungs clear to auscultation Cardiovascular Rate/Rhythm: regular rate and regular rhythm Heart Sounds: normal S1, normal S2 and + murmur Gastrointestinal (Abdomen) normal bowel sounds, soft, nontender, no hepatosplenomegaly Musculoskeletal +b/l MAYLIN Neurologic PERRL, EOMI, accommodation nl, no face palsy, no dysarthria Psychiatric A+Ox3, euthymic affect Discharge Data Allergies Allergy/AdvReac Type Severity Reaction Status Date / Time Sulfa (Sulfonamide Allergy Unknown Rash Verified 09/22/19 17:00 Antibiotics) Consultations 09/22/19 17:08 ED Decision to Admit Stat 09/22/19 20:20 Consult Case Management - Discharge Planning Routine Ordered Studies CHEST CT W/CONTRAST (09/22/19 performed at [facility]): IMPRESSION 1. Pulmonary emboli involving distal right main pulmonary artery extending into segmental right upper lobe pulmonary arteries. Much smaller left upper segmental and left lower lobar pulmonary emboli. 2. Nonspecific trace pericardial effusion. Otherwise, no other evidence of disease in the chest. 3. Hepatosplenomegaly. 4. Ascending thoracic aortic aneurysm measuring 3.9 x 4.1 cm. Correlate with outside imaging if available. Follow-up is suggested. 5. Low-density right thyroid nodule measuring 1.1 x 1.2 cm. Correlate with outside imaging if available. If none available, suggest outpatient thyroid ultrasound for further evaluation. 6. Diffuse bowel wall thickening involving the colon (predominately involving sigmoid colon) may be related to partial collapse of the bowel; however, differential includes colitis (including C difficile pancolitis). Correlate clinically. No evidence of bowel obstruction 09/22/19 18:34 US venous doppler LE BI Stat FINDINGS: Grayscale, color-flow, and Doppler spectral waveform analysis was performed. On the right, the veins were fully compressible from the groin through the popliteal vein. There was normal augmentation. There is normal color flow within the proximal trifurcation veins of the right calf. On the left, the common femoral and superficial femoral veins appear patent. There is nonocclusive thrombus within the left popliteal vein. This appears acute. No thrombus is visualized within the proximal trifurcation veins of the calf. IMPRESSION: 1. Acute left popliteal vein DVT 2. No evidence of right lower extremity DVT Hospital Course (1) Bilateral pulmonary embolism: (2) Fever: (3) SOB (shortness of breath): Bilateral Pulmonary embolism on CT PE Left Popliteal DVT on doppler Risk factors include metastatic breast cancer Fever reported likely due to DVT/PE Afebrile since admission, WBC is 4, CXR no infiltrates Antibiotics discontinued Started on Lovenox. Admitting provider had discussed anticoag options with Dr. Vincent, the patient's oncologist. He agreed with Lovenox because they may be pl anning for bone marrow bx soon as an outpatient. Spoke with RN to provide lovenox injection education I discussed extensively with patient about VTE, anticoagulation benefit and risks Wean off oxygen today 2 Step ambulatory oxygen did not show any need for oxygen with ambulation (4) Hypokalemia: Potassium 2.8 on presentation. K today is 2.9 this morning Repleted. Recheck was 4.6 Continue home po potassium For amyloidosis, she will continue follow up with her oncologist on discharge Total Time Total Time Spent Total Time Spent (In Minutes): 35 Total Time Includes: Examination of the Patient, Discharge Planning, Medication Reconciliation and Other (Called daughter per patient request and updated her on her care ) Discharge Plan Discharge Items Patient Disposition: Home - Self-Care Reason For Visit: BILATERAL PULMONARY EMBOLI Discharge Diagnosis: Bilateral pulmonary emboli Acute left popliteal vein DVT Hypokalemia Activity: Resume your previous activity Non-emergency contact: Primary Care Provider and Oncologist Call non-emergency contact if: you have any medication questions and your symptoms worsen Follow-up/Referrals: Angeles Keith MD [Primary Care Provider] - 09/30/19 10:40 am (09/30/2019 10:40 AM Provider Sarthak Su MD Department Internal Medicine [facility] ) Diet: Heart Healthy Addtl Attending Provider Instructions: Mrs Gallardo You were sent to ER by your Oncologist after CT chest done showed blood clots in your lungs (Pulmonary emboli). Further evaluation also showed blood clot in your left leg. You were started on blood thinner (lovenox injection) You will need to be on this for sometime. Watch out for increased risk of bleeding as we discussed. Please follow up with your Oncologist. It was a pleasure taking care of you. Pending Studies at Discharge: No Stand-Alone Forms: [facility], Smoking Cessation Medications and DC Order Prescriptions: New enoxaparin [Lovenox] 80 mg/0.8 mL syringe 80 mg SQ Q12H Qty: 60 RF: 1 Continued calcium carbonate-vitamin D3 600 mg(1,500mg) -200 unit tablet 2 tab PO DAILY RF: 0 anastrozole 1 mg tablet 1 mg PO DAILY RF: 0 metolazone 2.5 mg tablet See Rx Instructions .ROUTE .COMPLEX RF: 0 bumetanide 2 mg tablet 4 mg PO BID RF: 0 albuterol sulfate 2.5 mg /3 mL (0.083 %) Solution For Nebulization 2.5 mg INHALATION Q4H PRN (Reason: Shortness Of Breath Or Wheezing) RF: 0 potassium chloride 10 mEq tablet extended release 40 meq PO Q6 RF: 0 prochlorperazine maleate 10 mg tablet 10 mg PO .Q4-6HRS PRN (Reason: Nausea And Vomiting) RF: 0 acyclovir 400 mg tablet 400 mg PO BID RF: 0 aspirin 81 mg Tablet,Delayed Release (Dr/Ec) 81 mg PO QAM RF: 0 acetaminophen 500 mg Tablet 500 mg PO Q6H MDD 2000 MG/DAY PRN (Reason: Pain) RF: 0 lorazepam 0.5 mg tablet See Rx Instructions .ROUTE .COMPLEX RF: 0 bumetanide 1 mg tablet 1 mg PO BID RF: 0 metoprolol succinate 25 mg tablet extended release 24 hr 12.5 mg PO QAM RF: 0 albuterol sulfate [ProAir HFA] 90 mcg/actuation Hfa Aerosol Inhaler 2 puff INHALATION Q4H PRN (Reason: Wheezing) RF: 0 gtixacznik-qlzogpdxkhnkh-rxtf 50-300-40 mg capsule 1 cap PO Q12H PRN (Reason: Headache) RF: 0 Discharge Orders: Discharge Order (Routine); Ordered 09/24/19 Ordered By: Janny Guardado Admission Data Admit Date/Time: 09/22/19 18:14 Attending Provider: Janny Guardado I. Admit Provider: Robbie Meneses Primary Care Provider: Angeles Keith Other Providers: Robbie Meneses Other Interventions: Discharge Summary Assessment (RN) Last Done: 09/24/19 13:44 DC Date/Time DO NOT enter until pt leaves facility: 09/24/19 14:58
[2019-09-24 12:19] LABS: BUN Creatinine Ratio 36.1 (10-20); Calcium 7.9 mg/dl (8.5-10.1); Est GFR (Non-African American) 76.8; Potassium 4.6 mmol/L (3.5-5.1)
--- NOTE | 2019-09-27 14:19 | Coding Query ---
PRESENT ON ADMISSION QUERY To promote full compliance with coding requirements relating to pateint care, physician participation is requested in all cases of vice admiral uncertainty. Please assist us with the question(s) below: Please place an X within the parenthesis (x). The following diagnosis listed in this patient's medical record require physician assistance to determine if they were present on admission (POA) or not. Please advise for each diagnosis whether it was present on admission, not present on admission, or if it was clinically undetermined. 1. Acute Left Popliteal DVT (documentation begins on 09/22 Progress Note) (x ) Present On Admission ( ) Not Present On Admission ( ) Clinically Undetermined Thank you Carrie Bauer *Definition of the present on admission (POA)-Present on admission is defined as present at the time the order for inpatient admission occurs. Conditions that develop during an outpatient encounter prior to a written order for inpatient admission (including emergency department, observation, or outpatient surgery) are considered present on admission. MTDD
== END 2019-09-24 14:58 | disposition home or self-care (01) | DRG 176 ==
LOC: ED 15:28 → SUATTDRO 18:14 → 2N 18:14 → 2W 09-23 19:19

== ENCOUNTER 2019-12-30 16:49 | Inpatient (IN) ==
[2019-12-30 17:32] LABS: Basophils # (auto) 0.02 K/uL (0-0.2); Basophils % (auto) 0.1 %; Eosinophils # (auto) 0.27 K/uL (0-0.5); Hematocrit (blood only) 32.9 % (37-47); Hemoglobin 10.9 g/dL (12.0-16.0); Immature Granulocytes # (auto) 0.08 K/uL (0.00-0.02); Immature Granulocytes % (auto) 0.6 %; Lymphocytes # (auto) 3.71 K/uL (1.2-3.4); Lymphocytes % (auto) 27.4 %; Mean Corpuscular Hemoglobin 31.1 pg (25-34); Mean Corpuscular Hgb Conc 33.1 g/dL (32-36); Mean Platelet Volume 9.7 fL (7.4-10.4); Monocytes # (auto) 1.13 K/uL (0.11-0.59); Monocytes % (auto) 8.4 %; Neutrophils # (auto) 8.31 K/uL (1.4-6.5); Neutrophils % (auto) 61.5 %; Platelet Count 166 K/uL (130-400); RDW Coefficient of Variation 19.9 % (11.5-14.5); RDW Standard Deviation 68.5 fL (36.4-46.3); White Blood Count 13.52 K/uL (4.8-10.8)
[2019-12-30 17:48] LABS: Partial Thromboplastin Time 29.1 Seconds (21.0-31.0); Prothrombin Time 10.8 Seconds (9.0-12.0)
[2019-12-30 17:49] LABS: Alanine Aminotransferase 13 U/L (12-78); Albumin Level 2.2 gm/dl (3.4-5.0); Aspartate Aminotransferase 30 U/L (15-37); BUN Creatinine Ratio 16.9 (10-20); Blood Urea Nitrogen 20 mg/dl (7-18); Calcium 8.5 mg/dl (8.5-10.1); Carbon Dioxide 30 mmol/L (21-32); Chloride 96 mmol/L (98-107); Est GFR (African American) 54.2; Est GFR (Non-African American) 46.7; Glucose 121 mg/dl (70-99); Lipase 208 U/L (73-393); Potassium 3.2 mmol/L (3.5-5.1); Sodium 135 mmol/L (136-145)
[2019-12-30 17:53] LABS: Albumin Globulin Ratio 0.7 (0.9-2); Alkaline Phosphatase 154 U/L (45-117); Bilirubin,Total 0.2 mg/dl (0.2-1); Globulin 3.2 gm/dl (2.5-4.0); Total Protein 5.4 gm/dl (6.4-8.2); Troponin I < 0.015 ng/ml (0-0.045)
[2019-12-30] MEDS ORDERED: POTASSIUM CHLORIDE 20 MEQ TABCR PO STA (18:26)
[2019-12-30] MEDS ORDERED: SODIUM CHLORIDE 0.9% 1000ML 500 ML IV ONE ×2 (18:26→20:48)
[2019-12-30] MEDS ORDERED: POTASSIUM CHLORIDE / WTR 10 MEQ/100 ML PLCT IV ONE (18:26)
--- NOTE | 2019-12-30 18:44 | Emergency Department Note ---
Impression & Plan Leukocytosis, Hypokalemia, Hypomagnesemia, History of bone marrow transplant ED Provider Note NAME: ALFIE EATON AGE: 69 SEX: F : 1950 ARRIVES VIA: Walk-In INFORMANT: [Patient][family] ED PROVIDER(S): [Bandar Purdy MD] CHIEF COMPLAINT: Low potassium HISTORY OF PRESENT ILLNESS: The patient is a 69-year-old female who recently underwent a bone marrow transplant. The transplant was performed about 2 months ago. The date was October 28. The patient has been having difficulty with her potassium. Yesterday, she had lab work done and the potassium was 2.9. She was referred today by nephrology to this ER because of this value and because of tachycardia. The patient denies any fever, chills, cough or congestion. There has been no shortness of breath or chest pain. She did vomit and had one bout of diarrhea today around noon, 6 or so hours ago, she has been fine since. There has been no abdominal pain, no urinary complaints. REVIEW OF SYSTEMS: See HPI for pertinent positives and negatives. A total of ten systems were r eviewed and were otherwise negative. PMHx/PSHx: See Below SOCIAL HISTORY: See Below. PHYSICAL EXAM: GENERAL: Patient is in no acute distress. HEENT: No acute trauma, normocephalic atraumatic, mucous membranes moist, no nasal congestion, no scleral icterus. NECK: No stridor, no adenopathy, no meningismus, trachea is midline. LUNGS: Clear to auscultation bilaterally, no wheeze, no rhonchi, breath sounds equal. HEART: Slightly tachycardic, regular rhythm, no murmurs. ABDOMEN: Soft, nontender, bowel sounds positive, no hernias, no peritonitis. EXTREMITIES: No cyanosis, mild bilateral pedal edema, full range of motion of all the joints without pain or difficulty, no signs for acute trauma. NEUROLOGIC: Oriented x 3, no acute motor or sensory deficits, no focal weakness. SKIN: No rash, no jaundice, no diaphoresis. DIFFERENTIAL DIAGNOSIS: Infection, dehydration, metabolic abnormality, dysrhythmia, A. fib or a flutter, UTI, hypo/hyperglycemia, electrolyte disturbance, anemia, hypoxia, cardiac sources, intracerebral event, toxicologic, neurologic, as well as other pathologies. EMERGENCY DEPARTMENT COURSE/PROCEDURES: ECG: Indication was tachycardia. The ECG shows a sinus tachycardia with a rate of 105. There is no ST elevation, no PVCs. 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 QTC is 494. Compared to an ECG from 22 Sep 2019, the rate has increased. Continuous Cardiac Monitoring: An order was placed for continuous cardiac monitoring. The monitor shows a rate of 85 with normal sinus rhythm. MEDICAL DECISION MAKING: There is a mild leukocytosis, this could be consistent with infection. The patient was anemic but this appears baseline looking back at previous testing. There was a normal platelet count. No coagulopathy. Potassium was low at 3.2. Magnesium was quite low at 1.1. Lactic acid level was slightly elevated, likely consistent with dehydration although, infection was also a consideration. No liver enzyme elevation with the exception of a mildly elevated alk phos. No evidence for pancreatitis. Urinalysis showed protein, there was evidence for contamination, no infection. Chest film did not show pneumonia or CHF. Some chronic changes were noted. On my exam, I did not find evidence for cellulitis. The patient received IV saline, 1 L was given. She was given oral and IV potassium. She was given IV magnesium and oral magnesium. The patient presents for evaluation. She is hypomagnesemic, she is hypokalemic. She is running a lower blood pressure however, this seems baseline when talking to her about her previous BP readings. I did discuss the case with [facility] hematology oncology in [place]. Certainly, infection was a top concern for them and a septic work-up was there primary recommendation. The patient's electrolytes are being replaced, she is being hydrated. She has been worked up for the possibly of sepsis. I find no source for infection based on my exam or work-up. Given the circumstances, given her recent bone marrow transplant, hospitalization was felt warranted. I did speak to the patient and case management director. The on-call hospitalist was consulted. Past Med/Surg History Medical History Asthma Wells's palsy Chronic cough Diastolic dysfunction Elevated d-dimer Encephalitis Hemoptysis History of breast cancer Myopathic disease Nephrotic syndrome Paroxysmal supraventricular tachycardia Restless leg syndrome Wheezing Surgical History S/P inguinal hernia repair S/P partial mastectomy S/P LILIYA-BSO S/P tonsillectomy Family History (Updated 09/22/19 @ 19:28 by Melisa Knox PA-C) Family/Other No pertinent family history Father Heart disease Social History Smoking Status: Never smoker Hx Alcohol Use: No Hx Substance Use: No Preferred Language: Japanese Communication Ability: Effective 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 Beliefs That Will Affect Care: None Current Living Situation: Spouse and Family Feels Safe at Home: Yes Safety Concerns: Feels Safe At This Time Allergies Allergies Allergy/AdvReac Type Severity Reaction Status Date / Time Sulfa (Sulfonamide Allergy Unknown Rash Verified 12/30/19 17:58 Antibiotics) Home Meds Home Medications Medication Instructions Recorded Confirmed anastrozole 1 mg tablet 1 mg PO QAM tab 12/14/18 12/30/19 calcium carbonate 600 mg (1,500 2 tab PO QPM tab 12/14/18 12/30/19 mg)-vitamin D3 200 unit tablet acetaminophen 500 mg PO Q6H PRN MDD 2000 MG/DAY 09/22/19 12/30/19 acyclovir 400 mg PO BID 09/22/19 12/30/19 albuterol sulfate 2.5 mg INHALATION Q4H PRN 09/22/19 12/30/19 albuterol sulfate [ProAir HFA] 2 puff INHALATION Q4H PRN 09/22/19 12/30/19 metolazone See Rx Instructions .ROUTE .COMPLEX 09/22/19 12/30/19 metoprolol succinate 12.5 mg PO QAM 09/22/19 12/30/19 potassium chloride 40 meq PO Q6 09/22/19 12/30/19 prochlorperazine maleate 10 mg PO .Q4-6HRS PRN 09/22/19 12/30/19 bumetanide [Bumex] 2 mg PO BID 12/30/19 12/30/19 diphenoxylate-atropine 1 tab PO UD PRN 12/30/19 12/30/19 enoxaparin [Lovenox] 60 mg SUBCUT DAILY 12/30/19 12/30/19 midodrine 2.5 mg PO TID 12/30/19 12/30/19 Results & Data (ED) Vital Signs Vital Signs - 24 hr 12/30/19 16:56 12/30/19 17:37 12/30/19 17:49 Temperature 37.2 C Temperature Source Oral Pulse Rate 120 H 103 H 101 H Pulse Rate [Finger] Pulse Rate from SpO2 Sensor 102 H 102 H Respiratory Rate 22 24 23 Blood Pressure 96/63 L 89/65 L Blood Pressure [Left Arm] Blood Pressure Mean 74 69 Blood Pressure Mean [Left Arm] Blood Pressure Position Sitting Pulse Oximetry 96 95 94 Oxygen Delivery Method Room Air Sepsis Recent Fever Within 48 Hours No Sepsis New/Unexplained Change in Mental Status No Sepsis Action Taken by Nursing No Action Required 12/30/19 18:00 12/30/19 18:01 12/30/19 18:30 Temperature Temperature Source Pulse Rate 100 H 100 H 97 H Pulse Rate [Finger] Pulse Rate from SpO2 Sensor 100 H 100 H 97 H Respiratory Rate 19 19 20 Blood Pressure 92/64 L 85/63 L Blood Pressure [Left Arm] Blood Pressure Mean 72 72 Blood Pressure Mean [Left Arm] Blood Pressure Position Pulse Oximetry 94 94 94 Oxygen Delivery Method Room Air Sepsis Recent Fever Within 48 Hours Sepsis New/Unexplained Change in Mental Status Sepsis Action Taken by Nursing 12/30/19 22:01 Temperature Temperature Source Pulse Rate Pulse Rate [Finger] 82 Pulse Rate from SpO2 Sensor Respiratory Rate Blood Pressure Blood Pressure [Left Arm] 108/70 Blood Pressure Mean Blood Pressure Mean [Left Arm] 82 Blood Pressure Position Pulse Oximetry 94 Oxygen Delivery Method Sepsis Recent Fever Within 48 Hours Sepsis New/Unexplained Change in Mental Status Sepsis Action Taken by [facility] Medications Current Medication List: was personally reviewed by me Laboratory Data Attestation: I reviewed the patient's lab results. Result diagrams: 12/31/19 05:28 12/31/19 05:28 Lab Results 12/30/19 12/30/19 12/30/19 Range/Units 17:18 17:18 17:18 WBC 13.52 H (4.8-10.8) K/uL RBC 3.50 L (4.2-5.4) M/uL Hgb 10.9 L (12.0-16.0) g/dL Hct 32.9 L (37-47) % MCV 94.0 (80-100) fL MCH 31.1 (25-34) pg MCHC 33.1 (32-36) g/dL RDW Std Deviation 68.5 H (36.4-46.3) fL RDW Coeff of Sanchez 19.9 H (11.5-14.5) % Plt Count 166 (130-400) K/uL MPV 9.7 (7.4-10.4) fL Immature Gran % (Auto) 0.6 % Neut % (Auto) 61.5 % Lymph % (Auto) 27.4 % Louisa % (Auto) 8.4 % Eos % (Auto) 2.0 % Baso % (Auto) 0.1 % Neut # (Auto) 8.31 H (1.4-6.5) K/uL Lymph # (Auto) 3.71 H (1.2-3.4) K/uL Louisa # (Auto) 1.13 H (0.11-0.59) K/uL Eos # (Auto) 0.27 (0-0.5) K/uL Baso # (Auto) 0.02 (0-0.2) K/uL Immature Gran # (Auto) 0.08 H (0.00-0.02) K/uL PT 10.8 (9.0-12.0) Seconds INR 1.0 (0.9-1.1) APTT 29.1 (21.0-31.0) Seconds PTT Ratio 1.0 Sodium 135 L (136-145) mmol/L Potassium 3.2 L (3.5-5.1) mmol/L Chloride 96 L (98-107) mmol/L Carbon Dioxide 30 (21-32) mmol/L Anion Gap 9.0 (3-11) BUN 20 H (7-18) mg/dl Creatinine 1.20 (0.6-1.2) mg/dl Est Cr Clr Drug Dosing 37.0 ml/min Est GFR ( Amer) 54.2 Est GFR (Non-Af Amer) 46.7 BUN/Creatinine Ratio 16.9 (10-20) Glucose 121 H (70-99) mg/dl Lactate (0.4-2.0) mmol/L Calcium 8.5 (8.5-10.1) mg/dl Magnesium (1.8-2.4) mg/dl Total Bilirubin 0.2 (0.2-1) mg/dl AST 30 (15-37) U/L ALT 13 (12-78) U/L Alkaline Phosphatase 154 H (45-117) U/L Troponin I < 0.015 (0-0.045) ng/ml Total Protein 5.4 L (6.4-8.2) gm/dl Albumin 2.2 L (3.4-5.0) gm/dl Globulin 3.2 (2.5-4.0) gm/dl Albumin/Globulin Ratio 0.7 L (0.9-2) Lipase 208 (73-393) U/L Urine Color Urine Appearance (Clear) Urine pH (4.5-7.5) Ur Specific [place] (1.000-1.030) Urine Protein (Negative) Urine Glucose (UA) (Negative) Urine Ketones (Negative) Urine Blood (Negative) Urine Nitrite (Negative) Urine Bilirubin (Negative) Urine Urobilinogen (Negative) Ur Leukocyte Esterase (Negative) Urine WBC (Auto) (0-5) /hpf Urine RBC (Auto) (0-4) /hpf U Hyaline Cast (Auto) (0-5) /lpf U Epithel Cells (Auto) (0-5) /lpf Urine Bacteria (Auto) (Negative) Ur Renal Epithelial Cell 12/30/19 12/30/19 12/30/19 Range/Units 17:18 19:28 20:25 WBC (4.8-10.8) K/uL RBC (4.2-5.4) M/uL Hgb (12.0-16.0) g/dL Hct (37-47) % MCV (80-100) fL MCH (25-34) pg MCHC (32-36) g/dL RDW Std Deviation (36.4-46.3) fL RDW Coeff of Sanchez (11.5-14.5) % Plt Count (130-400) K/uL MPV (7.4-10.4) fL Immature Gran % (Auto) % Neut % (Auto) % Lymph % (Auto) % Louisa % (Auto) % Eos % (Auto) % Baso % (Auto) % Neut # (Auto) (1.4-6.5) K/uL Lymph # (Auto) (1.2-3.4) K/uL Louisa # (Auto) (0.11-0.59) K/uL Eos # (Auto) (0-0.5) K/uL Baso # (Auto) (0-0.2) K/uL Immature Gran # (Auto) (0.00-0.02) K/uL PT (9.0-12.0) Seconds INR (0.9-1.1) APTT (21.0-31.0) Seconds PTT Ratio Sodium (136-145) mmol/L Potassium (3.5-5.1) mmol/L Chloride (98-107) mmol/L Carbon Dioxide (21-32) mmol/L Anion Gap (3-11) BUN (7-18) mg/dl Creatinine (0.6-1.2) mg/dl Est Cr Clr Drug Dosing ml/min Est GFR ( Amer) Est GFR (Non-Af Amer) BUN/Creatinine Ratio (10-20) Glucose (70-99) mg/dl Lactate 2.1 H* (0.4-2.0) mmol/L Calcium (8.5-10.1) mg/dl Magnesium 1.1 L (1.8-2.4) mg/dl Total Bilirubin (0.2-1) mg/dl AST (15-37) U/L ALT (12-78) U/L Alkaline Phosphatase (45-117) U/L Troponin I (0-0.045) ng/ml Total Protein (6.4-8.2) gm/dl Albumin (3.4-5.0) gm/dl Globulin (2.5-4.0) gm/dl Albumin/Globulin Ratio (0.9-2) Lipase (73-393) U/L Urine Color Yellow Urine Appearance Clear (Clear) Urine pH 5.5 (4.5-7.5) Ur Specific [place] 1.018 (1.000-1.030) Urine Protein 4+ H (Negative) Urine Glucose (UA) Negative (Negative) Urine Ketones Negative (Negative) Urine Blood Negative (Negative) Urine Nitrite Negative (Negative) Urine Bilirubin Negative (Negative) Urine Urobilinogen Negative (Negative) Ur Leukocyte Esterase Trace H (Negative) Urine WBC (Auto) 10-30 H (0-5) /hpf Urine RBC (Auto) 0-4 (0-4) /hpf U Hyaline Cast (Auto) 1-5 (0-5) /lpf U Epithel Cells (Auto) >30 H (0-5) /lpf Urine Bacteria (Auto) Negative (Negative) Ur Renal Epithelial Cell Not Reportable 12/30/19 Range/Units 21:17 WBC (4.8-10.8) K/uL RBC (4.2-5.4) M/uL Hgb (12.0-16.0) g/dL Hct (37-47) % MCV (80-100) fL MCH (25-34) pg MCHC (32-36) g/dL RDW Std Deviation (36.4-46.3) fL RDW Coeff of Sanchez (11.5-14.5) % Plt Count (130-400) K/uL MPV (7.4-10.4) fL Immature Gran % (Auto) % Neut % (Auto) % Lymph % (Auto) % Louisa % (Auto) % Eos % (Auto) % Baso % (Auto) % Neut # (Auto) (1.4-6.5) K/uL Lymph # (Auto) (1.2-3.4) K/uL Louisa # (Auto) (0.11-0.59) K/uL Eos # (Auto) (0-0.5) K/uL Baso # (Auto) (0-0.2) K/uL Immature Gran # (Auto) (0.00-0.02) K/uL PT (9.0-12.0) Seconds INR (0.9-1.1) APTT (21.0-31.0) Seconds PTT Ratio Sodium (136-145) mmol/L Potassium (3.5-5.1) mmol/L Chloride (98-107) mmol/L Carbon Dioxide (21-32) mmol/L Anion Gap (3-11) BUN (7-18) mg/dl Creatinine (0.6-1.2) mg/dl Est Cr Clr Drug Dosing ml/min Est GFR ( Amer) Est GFR (Non-Af Amer) BUN/Creatinine Ratio (10-20) Glucose (70-99) mg/dl Lactate 2.1 H* (0.4-2.0) mmol/L Calcium (8.5-10.1) mg/dl Magnesium (1.8-2.4) mg/dl Total Bilirubin (0.2-1) mg/dl AST (15-37) U/L ALT (12-78) U/L Alkaline Phosphatase (45-117) U/L Troponin I (0-0.045) ng/ml Total Protein (6.4-8.2) gm/dl Albumin (3.4-5.0) gm/dl Globulin (2.5-4.0) gm/dl Albumin/Globulin Ratio (0.9-2) Lipase (73-393) U/L Urine Color Urine Appearance (Clear) Urine pH (4.5-7.5) Ur Specific [place] (1.000-1.030) Urine Protein (Negative) Urine Glucose (UA) (Negative) Urine Ketones (Negative) Urine Blood (Negative) Urine Nitrite (Negative) Urine Bilirubin (Negative) Urine Urobilinogen (Negative) Ur Leukocyte Esterase (Negative) Urine WBC (Auto) (0-5) /hpf Urine RBC (Auto) (0-4) /hpf U Hyaline Cast (Auto) (0-5) /lpf U Epithel Cells (Auto) (0-5) /lpf Urine Bacteria (Auto) (Negative) Ur Renal Epithelial Cell Administered Medications Acyclovir (Acyclovir 400 Mg Tab) 400 mg PO BID [facility] Stop: 01/30/20 08:59 Last Admin: 12/31/19 08:00 Dose: 400 mg Documented by: [id number] Anastrozole (Anastrozole 1 Mg Tab) 1 mg PO QAM [facility] Stop: 01/30/20 08:59 Last Admin: 12/31/19 08:00 Dose: 1 mg Documented by: [id number] Cosigned by: [id number] Bumetanide (Bumetanide 1 Mg Tab) 2 mg PO BID@0800,1700 [facility] Stop: 01/30/20 07:59 Last Admin: 12/31/19 11:00 Dose: Not Given Documented by: [id number] Enoxaparin Sodium (Enoxaparin Inj 60 Mg/0.6 Ml Syr) 60 mg SQ DAILY [facility] Stop: 01/30/20 08:59 Last Admin: 12/31/19 08:00 Dose: 60 mg Documented by: [id number] Ceftriaxone Sodium 1,000 mg/ (Dextrose) 50 mls @ 100 mls/hr IV Q24H [facility]; Protocol Stop: 01/05/20 01:29 Last Infusion: 12/31/19 02:39 Dose: 0 mls/hr Documented by: [id number] Admin: 12/31/19 01:50 Dose: 100 mls/hr Documented by: [id number] Metoprolol Succinate (Metoprolol Succ 25mg Ext Rel Tab) 12.5 mg PO QAM IVET Stop: 01/30/20 08:59 Last Admin: 12/31/19 10:36 Dose: 12.5 mg Documented by: [id number] Midodrine (Midodrine Hcl 2.5 Mg Tab) 2.5 mg PO TID@0800,1300,1800 IVET Stop: 01/30/20 07:59 Last Admin: 12/31/19 12:17 Dose: 2.5 mg Documented by: [id number] Admin: 12/31/19 07:58 Dose: 2.5 mg Documented by: [id number] Potassium Chloride (Potassium Chloride 20 Meq Tabcr) 40 meq PO Q6 IVET Stop: 01/30/20 01:00 Last Admin: 12/31/19 12:16 Dose: 40 meq Documented by: [id number] Admin: 12/31/19 06:33 Dose: 40 meq Documented by: [id number] Admin: 12/31/19 01:56 Dose: 40 meq Documented by: [id number] Discontinued Medications Bumetanide (Bumetanide 1 Mg Tab) 2 mg PO BID IVET Stop: 01/30/20 01:00 Last Admin: 12/31/19 02:59 Dose: Not Given Documented by: [id number] Heparin Sodium (Beef Lung) (Heparin 10 Unit/Ml 5 Ml Flush) Confirm Administered Dose 10 ml FLUSH .STK-MED ONE Stop: 12/31/19 03:53 Last Admin: 12/31/19 03:56 Dose: 10 ml Documented by: [id number] Potassium Chloride (K Servando / Wtr) 10 meq in 100 mls @ 100 mls/hr IV ONE ONE Stop: 12/30/19 19:25 Last Infusion: 12/30/19 20:28 Dose: 0 mls/hr Documented by: [id number] Admin: 12/30/19 18:50 Dose: 100 mls/hr Documented by: [id number] Sodium Chloride (Nss 1000ml) 500 mls @ 999 mls/hr IV .Q31M ONE Stop: 12/30/19 18:56 Last Infusion: 12/30/19 20:29 Dose: 0 mls/hr Documented by: [id number] Admin: 12/30/19 18:50 Dose: 999 mls/hr Documented by: [id number] Magnesium Sulfate/Dextrose (Magnesium Sulfate / D5w) 1 gm in 100 mls @ 100 mls/hr IV Q1H IVET Stop: 12/30/19 21:35 Last Infusion: 12/30/19 22:08 Dose: 0 mls/hr Documented by: [id number] Admin: 12/30/19 20:50 Dose: 100 mls/hr Documented by: [id number] Infusion: 12/30/19 20:49 Dose: 0 mls/hr Documented by: [id number] Admin: 12/30/19 19:49 Dose: 100 mls/hr Documented by: [id number] Sodium Chloride (Nss 1000ml) 500 mls @ 999 mls/hr IV .Q31M ONE Stop: 12/30/19 21:18 Last Infusion: 12/30/19 22:08 Dose: 0 mls/hr Documented by: [id number] Admin: 12/30/19 20:51 Dose: 999 mls/hr Documented by: [id number] Potassium Chloride/Sodium Chloride (Normal Saline W/20 Meq Kcl) 20 meq in 1,000 mls @ 50 mls/hr IV .Q20H IVET Stop: 01/30/20 01:00 Last Infusion: 12/31/19 06:33 Dose: 0 mls/hr Documented by: [id number] Admin: 12/31/19 01:56 Dose: 50 mls/hr Documented by: [id number] Magnesium Sulfate/Dextrose (Magnesium Sulfate / D5w) 1 gm in 100 mls @ 50 mls/hr IV ONE ONE Stop: 12/31/19 03:00 Last Infusion: 12/31/19 03:56 Dose: 0 mls/hr Documented by: [id number] Admin: 12/31/19 01:56 Dose: 50 mls/hr Documented by: [id number] Magnesium Oxide (Magnesium Oxide 400 Mg Tab) 400 mg PO NOW STA Stop: 12/30/19 19:37 Last Admin: 12/30/19 19:49 Dose: 400 mg Documented by: [id number] Potassium Chloride (Potassium Chloride 20 Meq Tabcr) 20 meq PO NOW STA Stop: 12/30/19 18:27 Last Admin: 12/30/19 18:35 Dose: 20 meq Documented by: [id number] Imaging Data Radiologist's Impression: XR chest 1V portable HISTORY: 69 years-old Female weakness acute weakness COMPARISON: Chest radiograph 09/22/2019 TECHNIQUE: Portable AP view of the chest FINDINGS: Cardiac silhouette is enlarged, unchanged. Left subclavian [id number] catheter. Mild linear subsegmental bibasilar opacities. No pneumothorax. Blunting of the costophrenic angles. No overt pulmonary edema or large pleural effusion. Degenerative changes of the shoulders and spine. IMPRESSION: 1. Cardiomegaly without acute process. 2. Mild linear subsegmental bibasilar atelectasis. Blood Pressure Blood Pressure Findings: Low blood pressure Blood Pressure Disposition: further management by hospitalist Discharge Plan Visit Data Chief Complaint: Tachycardia Stated Complaint: TACHYCARDIA ED Provider: Bandar Purdy Discharge Problem: Leukocytosis, Hypokalemia, Hypomagnesemia, History of bone marrow transplant Patient Disposition: Admitted As Inpatient Condition: Good Discharge Instructions Interventions: ED Discharge Assessment Last Done: 12/31/19 00:00 Discharge Problem: Leukocytosis Qualifiers: Leukocytosis type: unspecified Qualified Code(s): D72.829 - Elevated white blood cell count, unspecified
--- NOTE | 2019-12-30 19:30 | XRay Report ---
XR chest 1V portable HISTORY: 69 years-old Female weakness acute weakness COMPARISON: Chest radiograph 09/22/2019 TECHNIQUE: Portable AP view of the chest FINDINGS: Cardiac silhouette is enlarged, unchanged. Left subclavian Iblnsp-j-Yiae catheter. Mild linear subseg mental bibasilar opacities. No pneumothorax. Blunting of the costophrenic angles. No overt pulmonary edema or large pleural effusion. Degenerative changes of the shoulders and spine. IMPRESSION: 1. Cardiomegaly without acute process. 2. Mild linear subsegmental bibasilar atelectasis. ACT 112: Negative or not required by law. The above report was generated using voice recognition software. It may contain grammatical, syntax o r spelling errors. Electronically signed by: Michael Meredith M.D. 12/30/2019 7:28 PM
[2019-12-30] MEDS ORDERED: MAGNESIUM OXIDE 400 MG TAB PO STA (19:36)
[2019-12-30] MEDS: MAGNESIUM SULFATE / D5W 1 GM/100 ML BAG IV SCH ×2 (19:49→20:50)
[2019-12-30 20:38] LABS: Appearance Urine Clear (Clear); Bacteria Urine Automated Negative (Negative); Bilirubin Urine Negative (Negative); Blood Urine Negative (Negative); Color Urine Yellow; Epithelial Cell Urine Auto >30 /lpf (0-5); Glucose Urine UA Negative (Negative); Ketones Urine Negative (Negative); Leukocyte Esterase Urine Trace (Negative); Nitrite Urine Negative (Negative); Protein Urine 4+ (Negative); RBC Urine Automated 0-4 /hpf (0-4); Specific Gravity Urine 1.018 (1.000-1.030); Urobilinogen Urine Negative (Negative); pH Urine 5.5 (4.5-7.5)
[2019-12-31] MEDS ORDERED: PROCHLORPERAZINE MALEATE 10 MG TAB PO PRN (01:01)
[2019-12-31] MEDS ORDERED: ONDANSETRON INJ 2 MG/ML 2 ML VIAL IV PRN (01:01)
[2019-12-31] MEDS ORDERED: NITROGLYCERIN SL 0.4 MG/TAB TAB SL PRN (01:01)
[2019-12-31] MEDS ORDERED: metOLazone 2.5 MG TABLET PO PRN (01:01)
[2019-12-31] MEDS ORDERED: DIPHENOXYLATE/ATROPINE 2.5/0.025MG TAB PO PRN (01:01)
[2019-12-31] MEDS ORDERED: MAGNESIUM SULFATE / D5W 1 GM/100 ML BAG IV ONE (01:01)
[2019-12-31] MEDS ORDERED: NSS + 20MEQ KCL 20 MEQ/1,000 ML BAG IV SCH (01:01)
[2019-12-31] MEDS ORDERED: ALBUTEROL 0.083% NEBU SOLN 3 ML VIAL INH PRN (01:01)
[2019-12-31] MEDS ORDERED: BUMETANIDE 1 MG TAB PO SCH ×2 (01:01→08:00)
[2019-12-31] MEDS ORDERED: ACETAMINOPHEN 325 MG TAB PO PRN (01:01)
[2019-12-31] MEDS ORDERED: ALBUTEROL HFA 8 GM INHALER INH PRN (01:08)
--- NOTE | 2019-12-31 01:14 | History and Physical Report ---
DATE OF ADMISSION: 12/30/2019 CHIEF COMPLAINT: Electrolyte abnormalities, nausea and vomiting. 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 After the autologous stem cell transplant, the patient developed severe nausea, vomiting and diarrhea and she was admitted to [facility] and she was found to have colitis and that seemed to be improved, but the patient is having significant electrolyte abnormalities. She is on high doses of potassium supplements. Her blood pressure is lower side and she requires midodrine, not given high doses of midodrine to prevent tachyarrhythmias. Her recent electrolyte are abnormal, saw the nephrology today and advised to get admitted to the hospital because of hypokalemia and tachycardia. Her potassium dose seems to be increased to 160 mEq daily, magnesium supplements were not given because of the diarrhea. She had 1 episode of nausea and diarrhea today. Currently resting comfortably and hemodynamically stable. Blood pressure initially when she came in was low in 80s, but systolic blood pressure improved to 100s. Her potassium is 3.2, magnesium is 1.1. Lactate is 2.1. Her white count was 13.5. ER physician talked to her heme/onc telecommunication engineer at [facility], was advised to keep her in the hospital and also check blood cultures because of elevated white count. She has no signs of infection, her A-port looks fine and there is a plan to replace the A-port this week. The patient denies any headache, no blurred vision, no earache, no runny nose, no sore throat, no cough, no fever, no chills, no chest pain, no shortness of breath. Currently, no nausea, no abdominal pain, no burning micturitions. Has chronic swelling in the legs. Her weight is somewhat stable. She lives with her and since she became ill, the sister is also living with her, her son lives close by. She walks holding the furniture at home. ALLERGIES: SULFA ANTIBIOTICS. PAST MEDICAL HISTORY: As mentioned above. PAST SURGICAL HISTORY: Colonoscopy, cystoscopy, EGDs, A-port placement, right breast partial mastectomy with lymphadenectomy, bilateral removal of oviducts, tonsillectomy, adenoidectomy, repair of inguinal hernia, total abdominal hysterectomy with removal of tubes. MEDICATIONS: Currently the patient is on midodrine 2.5 mg p.o. t.i.d., potassium chloride 40 mEq p.o. q.i.d., metolazone 2.5 mg p.r.n., acyclovir 400 mg p.o. b.i.d., Bumex 2 mg p.o. b.i.d., Lomotil 1 tablet p.o. q.i.d. p.r.n., Lovenox 60 mg under skin daily, albuterol 2 puffs q. 4 hours p.r.n., Compazine 10 mg p.o. q. 6 hours p.r.n., Tylenol 1000 mg every 6 hours p.r.n., Toprol-XL 12.5 mg p.o. daily, anastrozole 1 mg daily, calcium carbonate with vitamin D 2 tablets p.o. daily. FAMILY HISTORY: Significant for father had heart disorder. Maternal grandfather has heart disorder; maternal grandmother has heart disorder. Paternal grandfather has diabetes. SOCIAL HISTORY: , lives with her . No smoking, no alcohol, no drug use. REVIEW OF SYMPTOMS: As per HPI. Rest of review of systems negative. PHYSICAL EXAMINATION: GENERAL: The patient is of moderate build, not in acute distress. VITAL SIGNS: Temperature 37.2, pulse 82, respiratory rate 20, blood pressure when she came in was 89/65, currently [id number], oxygen 94% on room air. HEENT: No pallor, no icterus. Pupils equal, round, reactive to light. NECK: No JVD, no neck masses. CARDIOVASCULAR: S1, S2 heard, regular rate and rhythm, no murmur, no gallop. RESPIRATORY SYSTEM: Normal AP diameter. No accessory muscle use. No wheezing, no crackles. ABDOMEN: Soft, bowel sounds present, nontender. No distention. CENTRAL NERVOUS SYSTEM: Cranial nerves II-XII grossly intact. Nonfocal. EXTREMITIES: Bilateral chronic lower extremity +2 gross edema present with erythematous changes, chronic changes. LABORATORY DATA: WBC 13.5, hemoglobin 10.9, hematocrit 32.9, platelets 166. PT 10.8, INR 1, APTT 29.1. Sodium 135, potassium 3.2, chloride 96, bicarbonate 30, BUN 20, creatinine 1.2, serum glucose 121. Lactate 2.1, calcium 8.5, magnesium 1.1, total bilirubin 0.2, AST 30, ALT 13, alkaline phosphatase 154. Troponin I less than 0.015. Lipase 208. Urinalysis +4 protein, trace leukocyte esterase. IMAGING DATA: Chest x-ray, cardiomegaly without acute process. EKG: Sinus tachycardia with rate of 105, no significant change was found. ASSESSMENT AND PLAN: This is a 69-year-old female who presents with electrolyte abnormalities. 1. The patient has significant electrolyte abnormalities since she was diagnosed with colitis, after bone marrow transplant in October of 2019. She is on high dose of potassium and she is also on Bumex for her nephrotic syndrome and lower extremity edema. Magnesium is 1.1. Potassium is 3.2. Will continue her home potassium supplements. Received some potassium in the ER. We will continue with IV normal saline with 20 of KCl at 50 mL per hour and replace magnesium with IV magnesium and follow repeat labs in a.m. and consult nephrology for adjustment of her supplement or medications. 2. Nephrotic syndrome secondary to amyloidosis: On Bumex, and supplements as above, will consult nephrology in the hospital. 3. History of amyloidosis status post autologous bone marrow transplant: Follows with hematology/oncology. Will call heme/onc in a.m. for further recommendations. 4. Elevated lactic acid and leukocytosis, possible urinary tract infection: Empirically started on Rocephin and follow the cultures. Follow the repeat lactic acid. 5. History of pulmonary embolism and deep vein thrombosis: On Lovenox. 6. History of diastolic dysfunction, lower extremity edema: On Bumex, which we will continue. Getting gentle fluids. Monitor for volume overload. 7. Paroxysmal supraventricular tachycardia: On metoprolol XL. 8. Severe malnutrition: As per the sister, the patient is eating more now, she drinks boost. Renewals Manager consult when she is stable. 9. Deep venous thrombosis prophylaxis: On Lovenox. DISPOSITION: Closely monitor in the med tele. Level 1 full code as per my discussion with the patient. PT and OT prior to discharge. Social Service to help with discharge planning. RAYMOND
[2019-12-31] MEDS ORDERED: cefTRIAXone SODIUM 1,000 MG in DEXTROSE 5% 50 ML IV SCH (01:30)
[2019-12-31] MEDS: POTASSIUM CHLORIDE 20 MEQ TABCR PO SCH ×4 (01:56→17:40)
[2019-12-31] MEDS ORDERED: Nursing to Pharmacy Communication SCH (02:45)
[2019-12-31 05:39] LABS: Basophils # (auto) 0.03 K/uL (0-0.2); Basophils % (auto) 0.5 %; Eosinophils # (auto) 0.32 K/uL (0-0.5); Eosinophils % (auto) 5.6 %; Hematocrit (blood only) 27.8 % (37-47); Hemoglobin 9.5 g/dL (12.0-16.0); Immature Granulocytes # (auto) 0.04 K/uL (0.00-0.02); Immature Granulocytes % (auto) 0.7 %; Lymphocytes # (auto) 2.21 K/uL (1.2-3.4); Lymphocytes % (auto) 38.5 %; Mean Corpuscular Hemoglobin 31.5 pg (25-34); Mean Corpuscular Hgb Conc 34.2 g/dL (32-36); Mean Corpuscular Volume 92.1 fL (80-100); Mean Platelet Volume 9.4 fL (7.4-10.4); Monocytes % (auto) 12.2 %; Neutrophils # (auto) 2.44 K/uL (1.4-6.5); Neutrophils % (auto) 42.5 %; Platelet Count 135 K/uL (130-400); RDW Coefficient of Variation 20.2 % (11.5-14.5); Red Blood Count 3.02 M/uL (4.2-5.4); White Blood Count 5.74 K/uL (4.8-10.8)
[2019-12-31 06:13] LABS: BUN Creatinine Ratio 18.5 (10-20); Calcium 8.2 mg/dl (8.5-10.1); Est GFR (African American) 77.7; Est GFR (Non-African American) 67.1; Magnesium 2.1 mg/dl (1.8-2.4); Potassium 3.9 mmol/L (3.5-5.1)
[2019-12-31 06:19] LABS: Anisocytosis Present; Polychromasia 1+
[2019-12-31] MEDS: MIDODRINE HCL 2.5 MG TAB PO SCH ×3 (07:58→17:39)
[2019-12-31] MEDS: METOPROLOL SUCC 25MG EXT REL TAB PO SCH ×2 (07:59→10:36)
[2019-12-31] MEDS ORDERED: ACYCLOVIR 400 MG TAB PO SCH (09:00)
[2019-12-31] MEDS ORDERED: ENOXAPARIN INJ 60 MG/0.6 ML SYR SQ SCH (09:00)
[2019-12-31] MEDS ORDERED: ANASTROZOLE 1 MG TAB PO SCH (09:00)
--- NOTE | 2019-12-31 10:37 | Nephrology Consultation ---
Date of Consultation December 31, 2019 Assessment & Plan (1) Nephrotic syndrome: Patient is on high doses of diuretics. Her edema is controlled. Continue Bumex 2 mg twice daily. Would avoid metolazone. (2) Hypokalemia: Potassium is better today after aggressive potassium supplementation. Continue potassium chloride 40 mEq 4 times daily. Monitor daily. (3) Hyponatremia: Due to hypovolemia. Sodium has improved after IV fluids. No need for additional work-up. 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 fib and SVT who was admitted on 12/30/2019 with vomiting and diarrhea found to have multiple electrolyte abnormalities. She had hyponatremia, hypokalemia of 3.2 and hypomagnesemia of 1.1. Patient has been doing well since discharge from [facility] but yesterday after taking orange juice she had a bout of vomiting and diarrhea. She also takes potassium chloride supplements at home which were recently increased to 40 mEq 4 times daily. Patient reportedly vomited her morning pills. In the emergency room she was found to be hypotensive. She received IV fluids and magnesium and potassium supplements. Her electrolytes are better today. She denies vomiting or diarrhea this morning. No urinary symptoms. No NSAID use. Allergies Allergy/AdvReac Type Severity Reaction Status Date / Time Sulfa (Sulfonamide Allergy Unknown Rash Verified 12/30/19 17:58 Antibiotics) Home Medications Home Medications Medication Instructions Recorded Confirmed Type anastrozole 1 mg tablet 1 mg PO QAM tab 12/14/18 12/30/19 History calcium carbonate 600 mg (1,500 2 tab PO QPM tab 12/14/18 12/30/19 History mg)-vitamin D3 200 unit tablet acetaminophen 500 mg PO Q6H PRN MDD 2000 MG/DAY 09/22/19 12/30/19 History acyclovir 400 mg PO BID 09/22/19 12/30/19 History albuterol sulfate 2.5 mg INHALATION Q4H PRN 09/22/19 12/30/19 History albuterol sulfate [ProAir HFA] 2 puff INHALATION Q4H PRN 09/22/19 12/30/19 History metolazone See Rx Instructions .ROUTE .COMPLEX 09/22/19 12/30/19 History metoprolol succinate 12.5 mg PO QAM 09/22/19 12/30/19 History potassium chloride 40 meq PO Q6 09/22/19 12/30/19 History prochlorperazine maleate 10 mg PO .Q4-6HRS PRN 09/22/19 12/30/19 History bumetanide [Bumex] 2 mg PO BID 12/30/19 12/30/19 History diphenoxylate-atropine 1 tab PO UD PRN 12/30/19 12/30/19 History enoxaparin [Lovenox] 60 mg SUBCUT DAILY 12/30/19 12/30/19 History midodrine 2.5 mg PO TID 12/30/19 12/30/19 History Patient History Medical History (Updated 12/31/19 @ 10:38 by Helena Garces MD) Asthma Wells's palsy Chronic cough Diastolic dysfunction Elevated d-dimer Encephalitis Hemoptysis History of breast cancer Myopathic disease Nephrotic syndrome Paroxysmal supraventricular tachycardia Restless leg syndrome Wheezing Surgical History S/P inguinal hernia repair S/P partial mastectomy S/P LILIYA-BSO S/P tonsillectomy Family History (Updated 09/22/19 @ 19:28 by Melisa Knox PA-C) Family/Other No pertinent family history Father Heart disease Social History (Updated 12/18/18 @ 11:10 by Vanesa Wu) Smoking Status: Never smoker Hx Alcohol Use: No Hx Substance Use: No Preferred Language: Chadian Communication Ability: Effective Spar Machine Operator Helper Required: No Beliefs That Will Affect Care: None Current Living Situation: Spouse and Family Feels Safe at Home: Yes Safety Concerns: Feels Safe At This Time Review of Systems Review of Systems: All systems reviewed & are unremarkable except as noted in HPI & below Physical Exam Physical Exam: General exam: Appears comfortable, no acute distress HEENT: Pupils are equal and reactive to light Neck: No JVD, neck is supple trachea is midline Respiratory system: Clear breath sounds bilaterally. Gastrointestinal: Abdomen is soft, non distended, non tender, bowel sounds are present CVS: Regular rate and rhythm. No murmurs, rubs or gallops Musculoskeletal: No joint or muscle tenderness Extremities: Non tender, no edema, peripheral pulses are present Neuro: Oriented, no tremors, no focal neurological deficits Skin: No rashes Results & Data ([facility]) Vital Signs (Past 12 Hours) Vital Signs Temp Pulse Pulse Resp BP Pulse Ox 12/31/19 07:20 36.8 C 80 16 94/59 L 94 12/31/19 03:00 36.9 C 50 L 18 88/51 L 96 12/31/19 00:37 36.7 C 79 95 H 18 95/55 L 95 12/30/19 23:50 77 90/59 L 93 Laboratory Results 12/31/19 05:28 12/30/19 12/30/19 12/31/19 17:18 17:18 05:28 WBC 13.52 H RBC 3.50 L MCV 94.0 MCH 31.1 MCHC 33.1 RDW Std Deviation 68.5 H RDW Coeff of Sanchez 19.9 H Plt Count 166 MPV 9.7 Phosphorus 3.0 Albumin 2.2 L 12/31/19 05:28 WBC 5.74 RBC 3.02 L MCV 92.1 MCH 31.5 MCHC 34.2 RDW Std Deviation 68.0 H RDW Coeff of Sanchez 20.2 H Plt Count 135 MPV 9.4 Phosphorus Albumin
--- NOTE | 2019-12-31 14:41 | Electrocardiogram Report ---
Test Reason : Blood Pressure : / mmHG Vent. Rate : 105 BPM Atrial Rate : 105 BPM P-R Int : 120 ms QRS Dur : 074 ms QT Int : 374 ms P-R-T Axes : 032 -14 004 degrees QTc Int : 494 ms Sinus tachycardia Left atrial enlargement Low voltage QRS Inferior infarct (cited on or before 22-SEP-2019) Possible Anterolateral infarct (cited on or before 22-SEP-2019) Abnormal ECG When compared with ECG of 22-SEP-2019 15:53, No significant change was found Confirmed by Geovanny Peterson ([id number]) on 12/31/2019 2:41:17 PM Referred By: Mindi Aguirre Confirmed By:Geovanny Peterson
--- NOTE | 2019-12-31 14:50 | Hospitalist Progress Note ---
Date of Service December 31, 2019 Assessment & Plan (1) Hypokalemia: Secondary to nephrotic syndrome, Potassium level corrected, within normal limit With input from nephrology follow-up stable to be discharged home with 40 M EQ potassium p.o. every 6 hours total of 160 M EQ/24 hours Dose recently increased by Dr. Mindi Eden Patient is scheduled to have a follow-up appointment at [place], will have lab work checked on Friday as well (2) Hypomagnesemia: Due to nephrotic syndrome, corrected (3) History of bone marrow transplant: Follows with hematology oncology in [place] Spoke with bone spa coordinator in [place], care plan updated [place] we will continue to monitor blood works 3 times a week (4) Light chain (AL) amyloidosis: Follows with hematology oncology in [place] (5) Nephrotic syndrome: Due to above, follow-up with nephrology with [facility] (6) Bilateral pulmonary embolism: On Lovenox therapeutic dose: 60 mg subcu daily Has been tolerated on lower dose of 60 mg subcu daily Hematology oncology in [place] follows closely Future admission purposes patient is a therapeutic Lovenox always should be on the lower range due to high risk of bleeding CODE STATUS: Full code Disposition: Stable to be discharged home today Patient was present at bedside, update given Admission and Anticipated Discharge Date Admission Date: December 30, 2019 Subjective Feels fine today normal appetite, no nausea vomiting pain no diarrhea or loose stool More energy, no fever or chills Comfortable to be discharged home today Patient to see hematology oncology in [place] Dr Vincent on 01/03/2020 Review of Systems Review of Systems: All systems reviewed & are unremarkable except as noted in HPI & below Constitutional: no fever, no chills, no fatigue and no anorexia Physical Exam Constitutional: WD/WN, vitals as above + ill appearing; no acute distress Eyes: sclerae not anicteric ENMT: Lack of hair secondary to chemo treatment, Respiratory: normal respiratory effort, lungs clear to auscultation Cardiovascular: Rate/Rhythm: regular rate and regular rhythm Extremities: + edema Gastrointestinal (Abdomen): Percussion/Palpation: abdomen soft; abdomen nontender Skin: no rashes, warm and dry Neurologic: PERRL, EOMI, accommodation nl, no face palsy, no dysarthria Psychiatric: A+Ox3, euthymic affect Results & Data Results & Data ([facility]) Vital Signs (Past 12 Hours) Vital Signs Temp Pulse Resp BP Pulse Ox 12/31/19 12:04 36.5 C 85 16 96/68 L 94 12/31/19 10:33 78 20 100/70 94 12/31/19 07:20 36.8 C 80 16 94/59 L 94 12/31/19 03:00 36.9 C 50 L 18 88/51 L 96
--- NOTE | 2019-12-31 18:17 | Discharge Summary ---
Date of Service December 31, 2019 Admission HPI Per Admitting Provider DICTATED BY: Herbert Winkler MD DATE OF ADMISSION: 12/30/2019 CHIEF COMPLAINT: Electrolyte abnormalities, nausea and vomiting. 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 After the autologous stem cell transplant, the patient developed severe nausea, vomiting and diarrhea and she was admitted to [place] and she was found to have colitis and that seemed to be improved, but the patient is having significant electrolyte abnormalities. She is on high doses of potassium supplements. Her blood pressure is lower side and she requires midodrine, not given high doses of midodrine to prevent tachyarrhythmias. Her recent electrolyte are abnormal, saw the nephrology today and advised to get admitted to the hospital because of hypokalemia and tachycardia. Her potassium dose seems to be increased to 160 mEq daily, magnesium supplements were not given because of the diarrhea. She had 1 episode of nausea and diarrhea today. Currently resting comfortably and hemodynamically stable. Blood pressure initially when she came in was low in 80s, but systolic blood pressure improved to 100s. Her potassium is 3.2, magnesium is 1.1. Lactate is 2.1. Her white count was 13.5. ER physician talked to her heme/onc buttonhole maker hand at [facility], was advised to keep her in the hospital and also check blood cultures because of elevated white count. She has no signs of infection, her A-port looks fine and there is a plan to replace the A-port this week. The patient denies any headache, no blurred vision, no earache, no runny nose, no sore throat, no cough, no fever, no chills, no chest pain, no shortness of breath. Currently, no nausea, no abdominal pain, no burning micturitions. Has chronic swelling in the legs. Her weight is somewhat stable. She lives with her and since she became ill, the sister is also living with her, her son lives close by. She walks holding the furniture at home. Principal Diagnosis Nephrotic syndrome Bilateral pulmonary embolism on subcu Lovenox 60 mg daily(dose adjusted due to bleeding risk) Solitary plasmacytoma Status post bone marrow transplant Light chain amyloidosis Discharge Exam Constitutional WD/WN, vitals as above + ill appearing; no acute distress Eyes sclerae not anicteric Respiratory normal respiratory effort, lungs clear to auscultation Cardiovascular Rate/Rhythm: regular rate and regular rhythm Extremities: + edema Gastrointestinal (Abdomen) Percussion/Palpation: abdomen soft; abdomen nontender Skin no rashes, warm and dry Neurologic PERRL, EOMI, accommodation nl, no face palsy, no dysarthria Psychiatric A+Ox3, euthymic affect Discharge Data Allergies Allergy/AdvReac Type Severity Reaction Status Date / Time Sulfa (Sulfonamide Allergy Unknown Rash Verified 12/30/19 17:58 Antibiotics) Consultations 12/30/19 21:27 ED Decision to Admit Stat 12/31/19 01:01 Consult Case Management - Discharge Planning Routine 12/31/19 08:00 Consult Nephrology Routine Hospital Course (1) Hypokalemia: Secondary to nephrotic syndrome, Potassium level corrected, within normal limit With input from nephrology follow-up stable to be discharged home with 40 M EQ potassium p.o. every 6 hours total of 160 M EQ/24 hours Dose recently increased by Dr. Mindi Eden Patient is scheduled to have a follow-up appointment at [place], will have lab work checked on Friday as well Leukocytosis: Resolved, normal white count today, no fever or chills No evidence of any infection DC antibiotic (2) Hypomagnesemia: Due to nephrotic syndrome, corrected (3) History of bone marrow transplant: Follows with hematology oncology in [place] Spoke with bone mail service coordinator in [place], care plan updated [place] we will continue to monitor blood works 3 times a week (4) Light chain (AL) amyloidosis: Follows with hematology oncology in [place] (5) Nephrotic syndrome: Due to above, follow-up with nephrology with [facility] (6) Bilateral pulmonary embolism: On Lovenox therapeutic dose: 60 mg subcu daily Has been tolerated on lower dose of 60 mg subcu daily Hematology oncology in [place] follows closely Future admission purposes patient is a therapeutic Lovenox always should be on the lower range due to high risk of bleeding CODE STATUS: Full code Disposition: Stable to be discharged home today Patient was present at bedside, update given Total Time Total Time Spent Total Time Spent (In Minutes): 35 minutes Total Time Includes: Discharge Planning and Medication Reconciliation Discharge Plan Discharge Items Patient Disposition: Home - Self-Care Reason For Visit: ELECTROLYTE ABNORMALITIES,TACHYCARDIA Discharge Diagnosis: Nephrotic syndrome Bilateral pulmonary embolism on subcu Lovenox 60 mg daily(dose adjusted due to bleeding risk) Solitary plasmacytoma Status post bone marrow transplant Light chain amyloidosis Condition on Discharge: Good Activity: Resume your previous activity Non-emergency contact: Primary Care Provider Call non-emergency contact if: you have any medication questions Follow-up/Referrals: Angeles Keith MD [Primary Care Provider] - (Hospital follow-up with family physician in a week, office will call with appointment) Diet: Regular Addtl Attending Provider Instructions: Follow-up with hematology oncology at [place] on Friday as scheduled Continue lab work as scheduled Continue prior dose of potassium supplement 40 M EQ(4 tablets) every 6 hours You were asked not to take metolazone by nephrology, which may help to keep your potassium level within normal limit Pending Studies at Discharge: No Stand-Alone Forms: My [employer], Smoking Cessation Medications and DC Order Prescriptions: Continued calcium carbonate-vitamin D3 600 mg(1,500mg) -200 unit tablet 2 tab PO QPM RF: 0 anastrozole 1 mg tablet 1 mg PO QAM RF: 0 albuterol sulfate 2.5 mg /3 mL (0.083 %) Solution For Nebulization 2.5 mg INHALATION Q4H PRN (Reason: Shortness Of Breath Or Wheezing) RF: 0 potassium chloride 10 mEq tablet extended release 40 meq PO Q6 RF: 0 prochlorperazine maleate 10 mg tablet 10 mg PO .Q4-6HRS PRN (Reason: Nausea And Vomiting) RF: 0 acyclovir 400 mg tablet 400 mg PO BID RF: 0 acetaminophen 500 mg Tablet 500 mg PO Q6H MDD 2000 MG/DAY PRN (Reason: Pain) RF: 0 metoprolol succinate 25 mg tablet extended release 24 hr 12.5 mg PO QAM RF: 0 albuterol sulfate [ProAir HFA] 90 mcg/actuation Hfa Aerosol Inhaler 2 puff INHALATION Q4H PRN (Reason: Wheezing) RF: 0 bumetanide 2 mg Tablet 2 mg PO BID RF: 0 diphenoxylate-atropine 2.5-0.025 mg tablet 1 tab PO UD PRN (Reason: Diarrhea) RF: 0 midodrine 2.5 mg tablet 2.5 mg PO TID RF: 0 enoxaparin [Lovenox] 60 mg/0.6 mL Syringe 60 mg SUBCUT DAILY RF: 0 Discontinued metolazone 2.5 mg tablet See Rx Instructions .ROUTE .COMPLEX RF: 0 Discharge Orders: Discharge Order (Routine); Ordered 12/31/19 Ordered By: Dyana Soler Admission Data Admit Date/Time: 12/30/19 22:23 Attending Provider: Dyana Soler Admit Provider: Herbert Winkler Primary Care Provider: Angeles Keith Other Providers: Herbert Winkler ; Mindi Aguirre ; Tyrell Newman Elissa R. ; Kezia Ansari ; Helena Garces
[2019-12-31] MEDS ORDERED: HEPARIN 100 UNIT/ML 5ML FLUSH ONE (18:31)
[2019-12-31] MEDS ORDERED: CALCIUM 600MG + VIT D 400 IU TAB PO SCH (21:00)
== END 2019-12-31 18:50 | disposition home health service (06) | DRG 698 ==
LOC: ED 16:49 → 2W 22:23

== ENCOUNTER 2024-11-24 06:13 | Inpatient (IN) ==
--- NOTE | 2024-11-24 06:44 | Emergency Department Note ---
Impression & Plan Acute pain of right lower extremity, Intractable pain ED Provider Note HISTORY OF PRESENT ILLNESS: Patient is a 73-year-old female presenting with right leg pain. Patient reports has been having pain for the last 4 days that has been getting increasingly worse. Denies any injury to the leg. Reports that her last fall was 2 weeks ago but she "does not think I injured myself." She states she was not having any symptoms up until 4 days ago. She locates the pain diffusely in her right lower extremity, stating it hurts from her hip down on both the front and back of her leg. Denies any fevers or chills. She was being treated at wound clinic for a staph infection in her left lower leg. She reports she just finished her antibiotic about 2 days ago. She states that she is unable to walk secondary to the pain. Patient reports that she has been taking excessive amounts of Tylenol, stating that she is taking 5 pills of 500 mg Tylenol at a time. She states she took 5 pills of 500 mg Tylenol at 11 PM on 11/23/2024, at 2 PM on 11/23/2024 and in the morning on 11/23/2024. She also took 2 pills of 500 mg Tylenol at 1800 on 11/23/2024. She denies any abdominal pain, nausea or vomiting. She reports she is been taking this much Tylenol "just to try to function." She denies any DVT or PE history. She is on a baby aspirin daily but denies other anticoagulation. She also took a tramadol last night with little relief in her symptoms. ROS: as above PHYSICAL EXAM: Constitutional: Patient appears in no acute distress. HENT: Head: Normocephalic and atraumatic. Eyes: EOMI, PERRL Mouth/Throat: Mucous membranes moist. Neck: Trachea midline. Neck supple. Cardiovascular: RRR, No murmurs, rubs or gallops. Intact distal pulses. Pulmonary/Chest: No respiratory distress. Breath sounds clear and equal bilaterally. No wheezes or rales. Abdominal: Abdomen soft, no tenderness, rebound or guarding. Back: No midline spinal tenderness, no paraspinal tenderness, no CVA tenderness. Musculoskeletal: - RLE: Diffuse tenderness to palpation of the leg. No appreciable swelling. Patient is able to dorsiflex and plantarflex ankle and flex and extend the knee without significant pain. No appreciable rashes or changes in skin. Palpable PT pulse. No palpable crepitus. Skin: Warm and dry. No rash, erythema, pallor or cyanosis Psychiatric: Appropriate mood and affect for situation. Neurological: Alert and keenly responsive. CN II-XII grossly intact, moving all extremities equally and fully. MDM: - Vitals signs showed hypertension - History obtained via patient. History as above. - Chronic conditions affecting care: Venous ulcer of left lower extremity - Differential diagnoses include, but are not limited to: DVT; arterial occlusion; protesting fasciitis; muscle spasm - Order placed for continuous cardiac monitoring. At this time, monitor showed rate of 83 bpm with normal sinus rhythm, per my interpretation. - External medical records reviewed. Vascular medicine progress note dated 11/17/2024 was reviewed. Patient was being followed in clinic for a chronic venous insufficiency to her left lower extremity. - Laboratory workup interpreted by myself showed leukopenia (WBC 2.68); normal PT/INR; stable electrolytes; normal AST/ALT; normal lipase; normal lactic acid; normal CK; elevated acetaminophen but still within normal limits (4) - CT lumbar spine wo contrast negative for acute pathology other than degenerative disc disease. - CTA RLE negative for acute pathology. - UA negative for infection - US RLE negative for DVT - Patient given 4 mg IV morphine and 4 mg IV Zofran on arrival to the emergency department. However, on reassessment, she is still complaining of significant 10 out of 10 pain. She is given another 4 mg of IV morphine. However, about 2- 1/2 hours later, the patient was again complaining of 10 out of 10 pain. She can 0.5 mg IV Dilaudid. - Unclear etiology for the patient's intractable pain at this point. She has no vascular etiology, no suggestion of infectious etiology and no obvious pathology in her low back for referred pain. Patient does not feel comfortable going home at this time. Will discuss case with hospitalist service for observation. - Discussion was had with case packer about patient's case and need for admission - Hospitalist consulted for admission - Patient admitted to [facility] hospitalist service for further evaluation and management. ASSESSMENT AND PLAN: Diagnosis: Intractable pain; right lower extremity pain Plan: Admit Past Med/Surg History Problem List (Updated 11/24/24 @ 11:32 by Roya Harris MD) Intractable pain (Acute) Acute pain of right lower extremity (Acute) Traumatic open wound of lower leg (Acute) Venous ulcer Edema Chronic venous insufficiency (Chronic) Abnormal ankle brachial index Leukocytosis (Acute) Hypokalemia (Acute) Hypomagnesemia (Acute) History of bone marrow transplant (Acute) Hyponatremia SOB (shortness of breath) Fever Light chain (AL) amyloidosis Nephrotic syndrome Wells's palsy Restless leg syndrome Diastolic dysfunction Paroxysmal supraventricular tachycardia History of breast cancer Bilateral pulmonary embolism (Acute) Hypokalemia (Acute) Medical History (Updated 11/24/24 @ 11:32 by Roya Harris MD) Chronic cough Asthma Myopathic disease Encephalitis Wheezing Hemoptysis Elevated d-dimer Surgical History S/P inguinal hernia repair S/P partial mastectomy S/P tonsillectomy S/P [id number] Family History Family/Other No pertinent family history Father Heart disease Social History Smoking Status: Never smoker Hx Alcohol Use: No Hx Substance Use: No Preferred Language: Faroese Communication Ability: Effective 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 Beliefs That Will Affect Care: None marital status: Current Living Situation: Spouse and Family Feels Safe at Home: Yes Assistive Devices: Glasses and Walker Allergies Allergies Allergy/AdvReac Type Severity Reaction Status Date / Time Sulfa (Sulfonamide Allergy Unknown Rash Verified 11/17/24 08:04 Antibiotics) Home Meds Home Medications Medication Instructions Recorded Confirmed calcium 600 mg (as 0 tab PO QPM 12/14/18 11/24/24 carbonate)-vitamin D3 5 mcg (200 unit) tablet acetaminophen 500 mg tablet 0 mg PO Q6H PRN Pain 09/22/19 11/24/24 albuterol sulfate 2.5 mg/3 mL 2.5 mg inhalation Q4H PRN 09/22/19 11/24/24 (0.083 %) solution for nebulization Shortness Of Breath Or Wheezing albuterol sulfate 90 mcg/actuation 0 puff inhalation Q4H PRN Wheezing 09/22/19 11/24/24 aerosol inhaler (ProAir HFA) aspirin 81 mg tablet 0 mg PO DAILY 10/12/24 11/24/24 ondansetron HCl 4 mg tablet 0 mg PO Q6H PRN n/v 10/12/24 11/24/24 tramadol 50 mg tablet 50 mg PO BID PRN Pain 10/12/24 11/24/24 triamcinolone acetonide 0.5 % 0 applic topical BID 10/12/24 11/24/24 topical cream furosemide 20 mg tablet 20 mg PO DAILY 11/17/24 11/24/24 potassium chloride 10 mEq 20 meq PO DAILY 11/17/24 11/24/24 tablet,extended release Results & Data (ED) Vital Signs Vital Signs - 24 hr 11/24/24 06:22 11/24/24 07:27 11/24/24 08:38 Temperature 36.8 C Temperature Source Oral Pulse Rate 62 Pulse Rate [Right Finger] 62 60 Respiratory Rate 20 20 20 Respiratory Effort / Characteristics Non-Labored Spontaneous Non-Labored Spontaneous Respiratory Depth Normal Normal Respiratory Pattern Regular Blood Pressure 165/98 H Blood Pressure [Left Arm] 180/91 H 130/85 Blood Pressure Mean 120 Blood Pressure Mean [Left Arm] 120 100 Pulse Oximetry 97 99 99 Oxygen Delivery Method Room Air Room Air Room Air Oxygen Flow Rate Sepsis Recent Fever Within 48 Hours No Sepsis New/Unexplained Change in Mental Status No Sepsis Action Taken by Nursing No Action Required 11/24/24 10:36 11/24/24 10:51 Temperature Temperature Source Pulse Rate 83 Pulse Rate [Right Finger] 80 Respiratory Rate 16 Respiratory Effort / Characteristics Non-Labored Spontaneous Respiratory Depth Normal Respiratory Pattern Blood Pressure Blood Pressure [Left Arm] 168/105 H Blood Pressure Mean Blood Pressure Mean [Left Arm] 126 Pulse Oximetry 100 Oxygen Delivery Method Nasal Cannula Oxygen Flow Rate 2 Sepsis Recent Fever Within 48 Hours Sepsis New/Unexplained Change in Mental Status Sepsis Action Taken by Nursing Laboratory Data 11/24/24 06:45 11/24/24 06:45 Lab Results 11/24/24 11/24/24 Range/Units 06:45 08:34 WBC 2.68 L (4.8-10.8) K/ul RBC 4.27 (4.20-5.40) M/uL Hgb 12.4 (12.0-16.0) g/dl Hct 38.7 (37.0-47.0) % MCV 90.6 (80.0-100.0) fL MCH 29.0 (25.0-34.0) pg MCHC 32.0 (32.0-36.0) g/dL RDW Std Deviation 48.3 H (36.4-46.3) fL RDW Coeff of Sanchez 14.6 H (11.5-14.5) % Plt Count 136 (130-400) K/uL MPV 9.9 (9.4-12.4) fL Immature Gran % (Auto) 0.7 % Neut % (Auto) 66.9 % Lymph % (Auto) 15.7 % Granite % (Auto) 10.4 % Eos % (Auto) 5.2 % Baso % (Auto) 1.1 % Neut # (Auto) 1.79 (1.40-6.50) K/uL Lymph # (Auto) 0.42 L (1.20-3.40) K/uL Granite # (Auto) 0.28 (0.11-0.59) K/uL Eos # (Auto) 0.14 (0.00-0.50) K/uL Baso # (Auto) 0.03 (0.00-0.20) K/uL Immature Gran # (Auto) 0.02 (0.01-0.20) K/uL PT 10.3 (9.0-12.0) Seconds INR 0.9 (0.9-1.1) Sodium 138 (136-145) mmol/L Potassium 4.2 (3.5-5.1) mmol/L Chloride 109 H (98-107) mmol/L Carbon Dioxide 23 (21-32) mmol/L Anion Gap 6 (3-11) BUN 23 (6-23) mg/dl Creatinine 0.89 (0.6-1.2) mg/dl Est Cr Clr Drug Dosing Not Reportable eGFR 69.27 BUN/Creatinine Ratio 25.8 H (10-20) Glucose 98 (70-99(Fasting)) mg/dl Lactate 0.8 (0.4-2.0) mmol/L Calcium 9.1 (8.6-10.3) mg/dl Total Bilirubin 0.4 (0.2-1.0) mg/dl AST 31 (13-39) U/L ALT 17 (7-52) U/L Alkaline Phosphatase 108 H (34-104) U/L Total Creatine Kinase 94 (26-192) U/L Total Protein 7.0 (6.0-8.3) gm/dl Albumin 4.0 (3.4-5.0) gm/dl Globulin 3.0 (2.5-4.0) gm/dl Albumin/Globulin Ratio 1.3 (0.9-2) Lipase 22 (11-82) U/L Urine Color Yellow Urine Appearance Clear (Clear) Urine pH 5.0 (4.5-7.5) Ur Specific [place] 1.017 (1.000-1.030) Urine Protein Trace H (Negative) Urine Glucose (UA) Negative (Negative) Urine Ketones Negative (Negative) Urine Blood Negative (Negative) Urine Nitrite Negative (Negative) Urine Bilirubin Negative (Negative) Urine Urobilinogen Negative (Negative) Ur Leukocyte Esterase Negative (Negative) Urine WBC (Auto) 0-5 (0-5) /hpf Urine RBC (Auto) 0-2 (0-2) /hpf U Hyaline Cast (Auto) 0-2 (0-2) /lpf U Epithel Cells (Auto) 0-2 (0-2) /hpf Urine Bacteria (Auto) None Seen (None Seen) Urine Comment Acetaminophen 4 L (10-30) ug/ml Administered Medications Discontinued Medications Hydromorphone HCl (Hydromorphone Inj 0.5 Mg/0.5 Ml Syr) 0.5 mg IV NOW STA Stop: 11/24/24 10:05 Last Admin: 11/24/24 10:11 Dose: 0.5 mg Documented By: ANJUM Ioversol (Optiray 320 125ml) 112 ml IV ONCE ONE Stop: 11/24/24 09:52 Last Admin: 11/24/24 09:52 Dose: 112 ml Documented By: JABIER Morphine Sulfate (Morphine Sulfate 4 Mg/Ml 1 Ml Carp\\Vial) 4 mg IV NOW STA Stop: 11/24/24 06:42 Last Admin: 11/24/24 06:49 Dose: 4 mg Documented By: JUANY Morphine Sulfate (Morphine Sulfate 4 Mg/Ml 1 Ml Carp\\Vial) 4 mg IV NOW STA Stop: 11/24/24 07:50 Last Admin: 11/24/24 07:55 Dose: 4 mg Documented By: ANJUM Ondansetron HCl (Ondansetron Inj 2 Mg/Ml 2 Ml Vial) 4 mg IV NOW STA Stop: 11/24/24 06:42 Last Admin: 11/24/24 06:49 Dose: 4 mg Documented By: JUANY Imaging Data Radiologist's Impression: Lumbar Spine CT 11/24/24 06:41 EXAM: CT lumbar spine wo con CLINICAL HISTORY: Low back pain, right lower extremity pain TECHNIQUE: CT non-contrast scan of lumbar spine done. Axial images obtained with reformatted coronal and sagittal images and submitted for interpretation. One of the following dose reduction techniques was utilized for this exam: Automated exposure control, adjustment of the mA and/or kV according to patient size, and use of iterative reconstruction. DLP: 963.6 mGY.cm. COMPARISON: None FINDINGS: Vertebrae: Exaggerated lumbar lordosis. No fractures, lytic or sclerotic lesions. Generalized osteopenia. Anterior wedging of T12. End-plate sclerosis at T11-12. Grade 1 retrolisthesis of T12 over L1 and L1 over L2. Grade 1/minimal anterolisthesis of L3 over L4 and L4 over L5. Intervertebral Discs: Multilevel disc degenerative changes are noted, as described [id number]: T12-L1: Reduced disc height with diffuse disc bulge measuring 3.8 mm, causing ventral thecal sac indentation, and encroachment of bilateral neural foramina. L1-L2: Diffuse disc bulge measuring 4.2 mm, causing ventral thecal sac indentation, and mild bilateral neural foraminal stenosis. L2-L3: Diffuse disc bulge measuring 4.1 mm, causing ventral thecal sac indentation, and moderate bilateral neural foraminal stenosis. L3-L4: Diffuse disc bulge measuring 3.2 mm, in combination with bilateral facet arthropathy causing ventral thecal sac indentation, and mild bilateral neural foraminal stenosis (rightleft). L4-L5: Diffuse disc bulge measuring 4.8 mm, in combination with bilateral facet arthropathy causing ventral thecal sac indentation, and moderate bilateral neural foraminal stenosis. L5-S1: Diffuse disc bulge measuring 3.8 mm, in combination with bilateral facet arthropathy causing ventral thecal sac indentation, mild right and moderate left neural foraminal stenosis. Spinal Canal: The spinal canal is of normal caliber with no evidence of spinal stenosis. Facet Joints: Multilevel facet arthropathy. Soft Tissues: Normal appearance of the paraspinal soft tissues. No abnormal masses, fluid collections, or signs of inflammation. Atherosclerotic vascular calcifications. IMPRESSION: 1. Lumbar spondylosis with degenerative disc disease as described. 2. No acute fractures or dislocations. Electronically signed by Armaan Barroso 11-24-2024 08:18 AM Venous Doppler Study 11/24/24 07:00 ULTRASOUND RIGHT LOWER EXTREMITY VENOUS CLINICAL HISTORY: Right leg pain. COMPARISON STUDY: Bilateral lower extremity venous ultrasound dated 09/22/2019 TECHNIQUE: Real-time, grayscale, and color Doppler sonography of the deep veins of the right lower extremity was performed from the inguinal crease to the calf. Compression and augmentation were utilized. FINDINGS: There is no sonographic evidence of deep venous thrombosis identified in the right lower extremity. The common femoral, superficial femoral, and popliteal veins are patent and normally compressible. The greater saphenous vein and the profunda femoris vein at the junction with the common femoral vein are clear. The visualized calf veins are patent. IMPRESSION: There is no sonographic evidence of deep venous thrombosis identified in the right lower extremity. ACT 112: Negative or not required by law. Electronically signed by: Bandar Clemente M.D. 11/24/2024 8:39 AM Lower Extremity CTA 11/24/24 09:24 CT angio LE RT w inc wo if don CLINICAL HISTORY: RLE intractable pain COMPARISON STUDY: None FINDINGS: CTA: Right common femoral artery is widely patent. Deep femoral artery is widely patent. The right superficial femoral and popliteal arteries are widely patent. There is mild atherosclerotic calcification distally at the right SFA. There is normal widely patent three-vessel runoff to the right foot. Other findings: There is no soft tissue hematoma or abscess at the right lower extremity. There is mild osteoarthritis at the right hip. There is severe osteoarthritis at the right knee. There are mild degenerative changes at the right ankle. No fracture or dislocation seen. No evidence of osteomyelitis. There are mild varicose veins medially. IMPRESSION: 1. No acute findings seen. 2. Unremarkable CTA of the right lower extremity. ACT 112: Negative or not required by law. Electronically signed by: Jareth Vigil M.D. 11/24/2024 10:28 AM Discharge Plan Visit Data Chief Complaint: Leg Injury/Pain Stated Complaint: RT LEG PAIN ED Provider: Roya Harris Discharge Problem: Acute pain of right lower extremity, Intractable pain Condition: Fair Forms Stand Alone Forms: My [facility] Prescriptions Prescriptions: No Action ondansetron HCl 4 mg tablet 0 mg PO Q6H PRN (Reason: n/v) Patient Comments: 11/24- no fill history unable to verify aspirin 81 mg tablet 0 mg PO DAILY Patient Comments: 11/24- otc unable to verify tramadol 50 mg tablet 50 mg PO BID PRN (Reason: Pain) triamcinolone acetonide 0.5 % cream 0 applic topical BID Patient Comments: 11/24- no fill history unable to verify. Original 1 application topical BID furosemide 20 mg tablet 20 mg PO DAILY calcium carbonate-vitamin D3 600 mg(1,500mg) -200 unit tablet 0 tab PO QPM Patient Comments: 11/24- otc unable to verify. Original 2 tabs po qm albuterol sulfate 2.5 mg /3 mL (0.083 %) Solution For Nebulization 2.5 mg INHALATION Q4H PRN (Reason: Shortness Of Breath Or Wheezing) acetaminophen 500 mg Tablet 0 mg PO Q6H MDD 2000 MG/DAY PRN (Reason: Pain) Patient Comments: 11/24- otc unable to verify albuterol sulfate [ProAir HFA] 90 mcg/actuation Hfa Aerosol Inhaler 0 puff INHALATION Q4H PRN (Reason: Wheezing) Patient Comments: 11/24- no fill history unable to verify. Original: 2 puff inhalation q4h prn potassium chloride 10 mEq tablet extended release 20 meq PO DAILY Referrals Referrals: Angeles Keith MD [Primary Care Provider] -
[2024-11-24] MEDS: MoRPHine SULFATE 4 MG/ML 1 ML CARP\\VIAL IV STA ×2 (06:49→07:55)
[2024-11-24] MEDS: ONDANSETRON INJ 2 MG/ML 2 ML VIAL IV STA ×2 (06:49→13:01)
[2024-11-24 07:02] LABS: Hematocrit (blood only) 38.7 % (37.0-47.0); Hemoglobin 12.4 g/dl (12.0-16.0); Immature Granulocytes # (auto) 0.02 K/uL (0.01-0.20); Immature Granulocytes % (auto) 0.7 %; Mean Corpuscular Hemoglobin 29.0 pg (25.0-34.0); Mean Corpuscular Volume 90.6 fL (80.0-100.0); Platelet Count 136 K/uL (130-400); RDW Standard Deviation 48.3 fL (36.4-46.3); Red Blood Count 4.27 M/uL (4.20-5.40); White Blood Count 2.68 K/ul (4.8-10.8)
[2024-11-24 07:20] LABS: Alanine Aminotransferase 17 U/L (7-52); Albumin Globulin Ratio 1.3 (0.9-2); Alkaline Phosphatase 108 U/L (34-104); Anion Gap 6 (3-11); Bilirubin,Total 0.4 mg/dl (0.2-1.0); Blood Urea Nitrogen 23 mg/dl (6-23); Calcium 9.1 mg/dl (8.6-10.3); Carbon Dioxide 23 mmol/L (21-32); Chloride 109 mmol/L (98-107); Creatine Kinase 94 U/L (26-192); Globulin 3.0 gm/dl (2.5-4.0); Glucose 98 mg/dl (70-99(Fasting)); Lipase 22 U/L (11-82); Potassium 4.2 mmol/L (3.5-5.1); Sodium 138 mmol/L (136-145); Total Protein 7.0 gm/dl (6.0-8.3)
[2024-11-24 07:37] LABS: INR 0.9 (0.9-1.1); Prothrombin Time 10.3 Seconds (9.0-12.0)
--- NOTE | 2024-11-24 08:18 | CT Scan Report ---
EXAM: CT lumbar spine wo con CLINICAL HISTORY: Low back pain, right lower extremity pain TECHNIQUE: CT non-contrast scan of lumbar spine done. Axial images obtained with reformatted coronal and sagittal images and submitted for interpretation. One of the following dose reduction techniques was utilized for this exam: Automated exposure control, adjustment of the mA and/or kV according to patient size, and use of iterative reconstruction. DLP: 963.6 mGY.cm. COMPARISON: None FINDINGS: Vertebrae: Exaggerated lumbar lordosis. No fractures, lytic or sclerotic lesions. Generalized osteopenia. Anterior wedging of T12. End-plate sclerosis at T11-12. Grade 1 retrolisthesis of T12 over L1 and L1 over L2. Grade 1/minimal anterolisthesis of L3 over L4 and L4 over L5. Intervertebral Discs: Multilevel disc degenerative changes are noted, as described [id number]: T12-L1: Reduced disc height with diffuse disc bulge measuring 3.8 mm, causing ventral thecal sac indentation, and encroachment of bilateral neural foramina. L1-L2: Diffuse disc bulge measuring 4.2 mm, causing ventral thecal sac indentation, and mild bilateral neural foraminal stenosis. L2-L3: Diffuse disc bulge measuring 4.1 mm, causing ventral thecal sac indentation, and moderate bilateral neural foraminal stenosis. L3-L4: Diffuse disc bulge measuring 3.2 mm, in combination with bilateral facet arthropathy causing ventral thecal sac indentation, and mild bilateral neural foraminal stenosis (rightleft). L4-L5: Diffuse disc bulge measuring 4.8 mm, in combination with bilateral facet arthropathy causing ventral thecal sac indentation, and moderate bilateral neural foraminal stenosis. L5-S1: Diffuse disc bulge measuring 3.8 mm, in combination with bilateral facet arthropathy causing ventral thecal sac indentation, mild right and moderate left neural foraminal stenosis. Spinal Canal: The spinal canal is of normal caliber with no evidence of spinal stenosis. Facet Joints: Multilevel facet arthropathy. Soft Tissues: Normal appearance of the paraspinal soft tissues. No abnormal masses, fluid collections, or signs of inflammation. Atherosclerotic vascular calcifications. IMPRESSION: 1. Lumbar spondylosis with degenerative disc disease as described. 2. No acute fractures or dislocations. Electronically signed by Armaan Barroso 11-24-2024 08:18 AM
--- NOTE | 2024-11-24 08:40 | Ultrasound Report ---
ULTRASOUND RIGHT LOWER EXTREMITY VENOUS CLINICAL HISTORY: Right leg pain. COMPARISON STUDY: Bilateral lower extremity venous ultrasound dated 09/22/2019 TECHNIQUE: Real-time, grayscale, and color Doppler sonography of the deep veins of the right lower ex tremity was performed from the inguinal crease to the calf. Compression and augmentation were utilize d. FINDINGS: There is no sonographic evidence of deep venous thrombosis identified in the right lower ex tremity. The common femoral, superficial femoral, and popliteal veins are patent and normally shane sible. The greater saphenous vein and the profunda femoris vein at the junction with the common femor al vein are clear. The visualized calf veins are patent. IMPRESSION: There is no sonographic evidence of deep venous thrombosis identified in the right lower extremity. ACT 112: Negative or not required by law. Electronically signed by: Bandar Clemente M.D. 11/24/2024 8:39 AM
[2024-11-24 08:52] LABS: Appearance Urine Clear (Clear); Bacteria Urine Automated None Seen (None Seen); Cast Urine Automated 0-2 /lpf (0-2); Epithelial Cell Urine Auto 0-2 /hpf (0-2); Glucose Urine UA Negative (Negative); RBC Urine Automated 0-2 /hpf (0-2); WBC Urine Automated 0-5 /hpf (0-5)
[2024-11-24] MEDS: OPTIRAY 320 125ml IV ONE (09:52)
[2024-11-24] MEDS: HYDROmorphone INJ 0.5 MG/0.5 ML SYR IV STA (10:11)
--- NOTE | 2024-11-24 10:29 | CT Scan Report ---
CT angio LE RT w inc wo if don CLINICAL HISTORY: RLE intractable pain COMPARISON STUDY: None FINDINGS: CTA: Right common femoral artery is widely patent. Deep femoral artery is widely patent. The right murphy perficial femoral and popliteal arteries are widely patent. There is mild atherosclerotic calcificati on distally at the right SFA. There is normal widely patent three-vessel runoff to the right foot. Other findings: There is no soft tissue hematoma or abscess at the right lower extremity. There is mi ld osteoarthritis at the right hip. There is severe osteoarthritis at the right knee. There are mild degenerative changes at the right ankle. No fracture or dislocation seen. No evidence of osteomyeliti s. There are mild varicose veins medially. IMPRESSION: 1. No acute findings seen. 2. Unremarkable CTA of the right lower extremity. ACT 112: Negative or not required by law. Electronically signed by: Jareth Vigil M.D. 11/24/2024 10:28 AM
--- NOTE | 2024-11-24 12:35 | History & Physical Report ---
Date of Service November 24, 2024 Assessment & Plan (1) Intractable pain: (2) Acute pain of right lower extremity: (3) Chronic venous insufficiency: (4) Light chain (AL) amyloidosis: (5) History of bone marrow transplant: (6) History of breast cancer: (7) Bilateral pulmonary embolism: (8) Nephrotic syndrome: (9) Restless leg syndrome: (10) Diastolic dysfunction: (11) Paroxysmal supraventricular tachycardia: Plan Intractable right lower leg pain History of need for left lower extremity venous grafting [facility] Follows with vascular surgery, Dr. Hawkins as an outpatient we will consult him here - Obtain arterial Dopplers - Continue Tylenol [id number], tramadol for moderate to severe pain, and Dilaudid for severe breakthrough pain as needed - PT/OT - Fall precautions - Allow regular diet that is easy to chew - Continue baby aspirin daily, will hold on Lasix 20 mg daily and potassium for now as she appears euvolemic History of light chain amyloidosis, s/p autoLogus stem cell transplant in 2015 Remote history of breast cancer in 2011 status post chemo and radiation - follows with oncology at [facility] in [facility], stable - No longer is on medications for amyloidosis HFpEF History of paroxysmal ventricular tachycardia - Monitor on telemetry Holding Lasix, potassium as above, she is on no blood pressure management Or heart failure medications DVT ppx: teds, scds Lines: PIV x 1 FEN/GI: easy to chew CODE: full Dispo: From home, likely to remain in the hospital x 2 days I spent a total of 75 minutes with greater than 50% of that time face to face with the patient, personally reviewing all current laboratories, imaging studies, past medication reconciliation, outpatient chart review, and discussion with specialists to collaborate care for the patient excluding time spent in the performance of separately billed services or time spent by another provider/QHP. Please see attending documentation for corrections and/or additions. 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 Her paralysis is nearly resolved but does require having small, soft foods and it is noticeably worse when she is under stress. Pt is no longer on meds for amyloidosis. She has recent history of cellulitis completing a course of augmentin. Today she presents to the hospital with intractable right leg pain which has been ongoing for 4 days of constant throbbing, burning pain that goes down into the foot and up to the hip but does not involve the back. She has been using acetaminophen, tramadol around the clock without relief. Pt was given two doses of MS IV here without significant improvement. Dialudid 0.5 mg IV was administered around 10 am and she now is rating her pain a 3/10 and feel much more comfortatble at my time of visit. Daughter is with her at bedside and supports the history. Surgical Hx: colonoscopy, cystoscopy, EGDs, A-port placement, right breast partial mastectomy with lymphadenectomy, bilateral removal of oviducts, tonsillectomy, adenoidectomy, repair of inguinal hernia, total abdominal hysterectomy with removal of tubes. Family Hx: Significant for father had heart disorder. Maternal grandfather has heart disorder; maternal grandmother has heart disorder. Paternal grandfather has diabetes. Social Hx: Lives at home with , has two daughters who are involved in her care. No alcohol, tobacco or illicit substance use. Allergies Allergy/AdvReac Type Severity Reaction Status Date / Time Sulfa (Sulfonamide Allergy Unknown Rash Verified 11/17/24 08:04 Antibiotics) Home Medications Medication Instructions Recorded Confirmed Type acetaminophen 500 mg tablet 0 mg PO Q6H PRN Pain 09/22/19 11/24/24 History albuterol sulfate 2.5 mg/3 mL 2.5 mg inhalation Q4H PRN 09/22/19 11/24/24 History (0.083 %) solution for nebulization Shortness Of Breath Or Wheezing albuterol sulfate 90 mcg/actuation 0 puff inhalation Q4H PRN Wheezing 09/22/19 11/24/24 History aerosol inhaler (ProAir HFA) aspirin 81 mg tablet 81 mg PO DAILY 10/12/24 11/24/24 History ondansetron HCl 4 mg tablet 4 mg PO Q6H PRN n/v 10/12/24 11/24/24 History tramadol 50 mg tablet 50 mg PO BID PRN Pain 10/12/24 11/24/24 History triamcinolone acetonide 0.5 % 0 applic topical BID 10/12/24 11/24/24 History topical cream furosemide 20 mg tablet 20 mg PO DAILY 11/17/24 11/24/24 History potassium chloride 10 mEq 20 meq PO DAILY 11/17/24 11/24/24 History tablet,extended release Past Med/Surg History Problem List (Updated 11/24/24 @ 11:32 by Roya Harris MD) Intractable pain (Acute) Acute pain of right lower extremity (Acute) Traumatic open wound of lower leg (Acute) Venous ulcer Edema Chronic venous insufficiency (Chronic) Abnormal ankle brachial index Leukocytosis (Acute) Hypokalemia (Acute) Hypomagnesemia (Acute) History of bone marrow transplant (Acute) Hyponatremia SOB (shortness of breath) Fever Light chain (AL) amyloidosis Nephrotic syndrome Wells's palsy Restless leg syndrome Diastolic dysfunction Paroxysmal supraventricular tachycardia History of breast cancer Bilateral pulmonary embolism (Acute) Hypokalemia (Acute) Medical History (Updated 11/24/24 @ 11:32 by Roya Harris MD) Chronic cough Asthma Myopathic disease Encephalitis Wheezing Hemoptysis Elevated d-dimer Surgical History S/P inguinal hernia repair S/P partial mastectomy S/P tonsillectomy S/P LILIYA-BSO Family History (Updated 11/24/24 @ 12:33 by Sonia Salmeron PA-C) Family/Other No problems noted. Father Heart disease Social History Smoking Status: Never smoker Hx Alcohol Use: No Hx Substance Use: No Preferred Language: Persian Communication Ability: Effective Carcass Washer Required: No Beliefs That Will Affect Care: None marital status: Current Living Situation: Spouse and Family Feels Safe at Home: Yes Assistive Devices: Glasses and Walker Review of Systems Review of Systems: Constitutional: No fever, sweats or chills Eyes: No diplopia, no worsening or blurred vision ENT: normal hearing, no trouble swallowing with easy to chew food, as per HPI Respiratory: No cough, sputum, dyspnea at rest or on exertion Cardiovascular: No chest pain, tightness or palpitations Abdomen: No pain, nausea, vomiting, diarrhea or constipation Musculoskeletal: As per HPI with R sided leg pain/burning/throbbing, otherwise No joint pain, calf pain. She is on lasix for BLE swelling Neurologic: No weakness, numbness/tingling, or balance problems Psychiatric: No anxiety or depression Skin: No rash or itch. Left lower ext leg with small wound which is healing. Recent hx of cellulitis of the left leg now resolved and off antibiotics. Physical Exam Physical Exam: General: awake, alert, no apparent distress, elderly white female Head: Normocephalic, atraumatic, R sided facial droop s/p bells palsy effects ENT: PERRL, EOMI, no pharyngeal exudate, mucous membranes moist Chest: Clear to auscultation, on room air, no adventitious breath sounds Cardiac: Regular rate and rhythm, + loud holosystolic murmur radiation to the carotids, no JVD, normal peripheral pulses, good capillary refill Abdominal: NABS x 4 quadrants, soft, nondistended, nontender to palpation, no rebound or guarding Extremities: LLE with lateral leg wound, about 1 cm diameter, healing well, otherwise Normal inspection, no peripheral edema or erythema, calfs nontender to palpation Psych: Normal mood and affect Neuro: AAO x 3, no motor deficits, speech is clear, no peripheral sensory deficits Results & Data Results & Data Vital Signs (Past 12 Hours) Vital Signs Temp Pulse Pulse Resp BP BP Pulse Ox 11/24/24 11:33 79 18 152/100 H 98 11/24/24 11:09 81 21 98 11/24/24 10:51 83 11/24/24 10:36 80 16 168/105 H 100 11/24/24 08:38 60 20 130/85 99 11/24/24 07:27 62 20 180/91 H 99 11/24/24 06:22 36.8 C 62 20 165/98 H 97 O2 Del Method O2 Flow Rate 11/24/24 11:33 11/24/24 11:09 11/24/24 10:51 11/24/24 10:36 Nasal Cannula 2 11/24/24 08:38 Room Air 11/24/24 07:27 Room Air 11/24/24 06:22 Room Air Laboratory Results 11/24/24 11/24/24 08:34 06:45 WBC 2.68 L RBC 4.27 Hgb 12.4 Hct 38.7 MCV 90.6 MCH 29.0 MCHC 32.0 RDW Std Deviation 48.3 H RDW Coeff of Sanchez 14.6 H Plt Count 136 MPV 9.9 Immature Gran % (Auto) 0.7 Neut % (Auto) 66.9 Lymph % (Auto) 15.7 Ripley % (Auto) 10.4 Eos % (Auto) 5.2 Baso % (Auto) 1.1 Neut # (Auto) 1.79 Lymph # (Auto) 0.42 L Ripley # (Auto) 0.28 Eos # (Auto) 0.14 Baso # (Auto) 0.03 Immature Gran # (Auto) 0.02 PT 10.3 INR 0.9 Sodium 138 Potassium 4.2 Chloride 109 H Carbon Dioxide 23 Anion Gap 6 BUN 23 Creatinine 0.89 Est Cr Clr Drug Dosing Not Reportable eGFR 69.27 BUN/Creatinine Ratio 25.8 H Glucose 98 Lactate 0.8 Calcium 9.1 Total Bilirubin 0.4 AST 31 ALT 17 Alkaline Phosphatase 108 H Total Creatine Kinase 94 Total Protein 7.0 Albumin 4.0 Globulin 3.0 Albumin/Globulin Ratio 1.3 Lipase 22 Urine Color Yellow Urine Appearance Clear Urine pH 5.0 Ur Specific Depew 1.017 Urine Protein Trace H Urine Glucose (UA) Negative Urine Ketones Negative Urine Blood Negative Urine Nitrite Negative Urine Bilirubin Negative Urine Urobilinogen Negative Ur Leukocyte Esterase Negative Urine WBC (Auto) 0-5 Urine RBC (Auto) 0-2 U Hyaline Cast (Auto) 0-2 U Epithel Cells (Auto) 0-2 Urine Bacteria (Auto) None Seen Urine Comment Acetaminophen 4 L Diagnostic Findings Lumbar Spine CT 11/24/24 06:41 EXAM: CT lumbar spine wo con CLINICAL HISTORY: Low back pain, right lower extremity pain TECHNIQUE: CT non-contrast scan of lumbar spine done. Axial images obtained with reformatted coronal and sagittal images and submitted for interpretation. One of the following dose reduction techniques was utilized for this exam: Automated exposure control, adjustment of the mA and/or kV according to patient size, and use of iterative reconstruction. DLP: 963.6 mGY.cm. COMPARISON: None FINDINGS: Vertebrae: Exaggerated lumbar lordosis. No fractures, lytic or sclerotic lesions. Generalized osteopenia. Anterior wedging of T12. End-plate sclerosis at T11-12. Grade 1 retrolisthesis of T12 over L1 and L1 over L2. Grade 1/minimal anterolisthesis of L3 over L4 and L4 over L5. Intervertebral Discs: Multilevel disc degenerative changes are noted, as described [id number]: T12-L1: Reduced disc height with diffuse disc bulge measuring 3.8 mm, causing ventral thecal sac indentation, and encroachment of bilateral neural foramina. L1-L2: Diffuse disc bulge measuring 4.2 mm, causing ventral thecal sac indentation, and mild bilateral neural foraminal stenosis. L2-L3: Diffuse disc bulge measuring 4.1 mm, causing ventral thecal sac indentation, and moderate bilateral neural foraminal stenosis. L3-L4: Diffuse disc bulge measuring 3.2 mm, in combination with bilateral facet arthropathy causing ventral thecal sac indentation, and mild bilateral neural foraminal stenosis (rightleft). L4-L5: Diffuse disc bulge measuring 4.8 mm, in combination with bilateral facet arthropathy causing ventral thecal sac indentation, and moderate bilateral neural foraminal stenosis. L5-S1: Diffuse disc bulge measuring 3.8 mm, in combination with bilateral facet arthropathy causing ventral thecal sac indentation, mild right and moderate left neural foraminal stenosis. Spinal Canal: The spinal canal is of normal caliber with no evidence of spinal stenosis. Facet Joints: Multilevel facet arthropathy. Soft Tissues: Normal appearance of the paraspinal soft tissues. No abnormal masses, fluid collections, or signs of inflammation. Atherosclerotic vascular calcifications. IMPRESSION: 1. Lumbar spondylosis with degenerative disc disease as described. 2. No acute fractures or dislocations. Electronically signed by Armaan Barroso 11-24-2024 08:18 AM Venous Doppler Study 11/24/24 07:00 ULTRASOUND RIGHT LOWER EXTREMITY VENOUS CLINICAL HISTORY: Right leg pain. COMPARISON STUDY: Bilateral lower extremity venous ultrasound dated 09/22/2019 TECHNIQUE: Real-time, grayscale, and color Doppler sonography of the deep veins of the right lower extremity was performed from the inguinal crease to the calf. Compression and augmentation were utilized. FINDINGS: There is no sonographic evidence of deep venous thrombosis identified in the right lower extremity. The common femoral, superficial femoral, and popliteal veins are patent and normally compressible. The greater saphenous vein and the profunda femoris vein at the junction with the common femoral vein are clear. The visualized calf veins are patent. IMPRESSION: There is no sonographic evidence of deep venous thrombosis identified in the right lower extremity. ACT 112: Negative or not required by law. Electronically signed by: Bandar Clemente M.D. 11/24/2024 8:39 AM Lower Extremity CTA 11/24/24 09:24 CT angio LE RT w inc wo if don CLINICAL HISTORY: RLE intractable pain COMPARISON STUDY: None FINDINGS: CTA: Right common femoral artery is widely patent. Deep femoral artery is widely patent. The right superficial femoral and popliteal arteries are widely patent. There is mild atherosclerotic calcification distally at the right SFA. There is normal widely patent three-vessel runoff to the right foot. Other findings: There is no soft tissue hematoma or abscess at the right lower extremity. There is mild osteoarthritis at the right hip. There is severe osteoarthritis at the right knee. There are mild degenerative changes at the right ankle. No fracture or dislocation seen. No evidence of osteomyelitis. There are mild varicose veins medially. IMPRESSION: 1. No acute findings seen. 2. Unremarkable CTA of the right lower extremity. ACT 112: Negative or not required by law. Electronically signed by: Jareth Vigil M.D. 11/24/2024 10:28 AM Code Status & VTE Plan Code Status Full code - discussed with pt and daughter at bedside Supervising Physician Co-Signing Physician Notes Patient is a 73-year-old female with history of amyloidosis s/p stem cell transplant, breast cancer, Wells's palsy, paroxysmal SVT, venous insufficiency follows with Dr. Hawkins and other medical problems presents with history of worsening right leg pain which has been gradual progressing since past 4 days. Patient also stated that she pulled off a tick from her right side of her neck 4 days ago. Patient has been following with Dr. Hawkins for chronic venous insufficiency and planned for left GSV VenaSeal procedure in the future. Patient also has been following with wound clinic for left lateral leg wound which is much improved. Patient completed clindamycin course 2 days ago. Please review HPI for complete review of supplementation. Physical Exam: Vitals signs as noted above General Appearance:Moderately built and nourished, no apparent distress, elderly Head: normocephalic, Atraumatic,+ chronic facial palsy Eyes: normal inspection, EOMI Neck: supple, Trachea midline Respiratory/Chest: Normal breath sounds, CTA, No accessory muscle use Cardiovascular: S1, S2, + murmur Abdomen/GI:Soft, Non tender, Bowel sounds present Extremities/Musculoskeletal:normal inspection, B/L LE edema, varicosities, venous stasis Chronic left medial leg erythema Spine: Kyphosis Neurologic/Psych:AAOX3, grossly no focal neurological deficits Skin: normal color, warm, left leg small wound in dressing Intractable leg pain Chronic venous insufficiency Suspected tickborne illness Ambulatory dysfunction Right leg CTA showed no acute process Recent Doppler study showed no DVT Arterial Doppler study on 10/19/2024 within normal limits Will request vascular surgery evaluation Also check lipid panel, serology for tickborne illness Started on doxycycline, gabapentin PT OT, fall precautions I personally interviewed and examined the patient at bedside. I have reviewed the advanced practitioner's documentation on the date of service referred in note and agree with plan. Patient's care is coordinated with Sonia Salmeron PA-C. Please refer to the documentation above for details of patient's presentation and for discussion of other issues. I spent a total [id number] coordinating, documenting, and providing care for this patient excluding time spent in the performance of separately billed services or time spent by another provider/QHP.
[2024-11-24] MEDS ORDERED: HYDROmorphone INJ 0.5 MG/0.5 ML SYR IV PRN (14:27)
[2024-11-24] MEDS ORDERED: POLYETHYLENE (MIRALAX) 17 GM PACK PO PRN (14:27)
[2024-11-24] MEDS: ACETAMINOPHEN 500 MG TAB PO SCH (15:03)
[2024-11-24] MEDS: DOXYCYCLINE HYCLATE 100 MG CAP PO SCH (15:56)
[2024-11-24 16:47] LABS: Lyme Screen Rflx Confirmation Equivocal (Negative)
[2024-11-24 17:37] LABS: Lyme Ab IgG 2nd Tier Confirm Positive (Negative); Lyme Ab IgM 2nd Tier Confirm Negative (Negative)
[2024-11-24] MEDS ORDERED: Patient's HEIGHT &/or WEIGHT Needed STA (18:37)
[2024-11-24] MEDS: HEPARIN SOD 5,000 UNIT/0.5 ML VIAL SQ SCH (21:44)
[2024-11-24] MEDS: GABAPENTIN 100 MG CAP PO SCH (21:46)
--- NOTE | 2024-11-25 00:45 | Vascular Medicine Consultation ---
Date of Consultation November 25, 2024 Assessment & Plan (1) Acute pain of right lower extremity: 2. Chronic venous insufficiency 3. History of slow healing left lateral leg 4. History of DVT PE 5. History of amyloidosis post bone marrow transplant Patient here with severe acute right lower extremity pain without clear etiology. No evidence of peripheral arterial disease. No evidence of acute DVT on venous duplex. She does have known chronic venous insufficiency with longstanding lower extremity edema and previously noted left GSV reflux. Has exam findings of CVI on the right and suspect may have superficial saphenous reflux on right as well. Her venous insufficiency is not the cause of her acute symptoms. It likely contributes to her chronic lower extremity edema, slow wound healing and chronic leg heaviness but does not cause acute/severe pain like patient is experiencing. Do not feel she has any other vascular reasons for her symptoms. Question severe right OA, neuropathy, complex regional pain syndrome. No need for additional inpatient vascular testing or procedures. She is scheduled for left GSV VenaSeal as an outpatient. During her outpatient treatment course we will also obtain right lower extremity reflux study and discuss options. Thank you for allowing us to participate in the care of this patient. Please contact with any questions. History of Present Illness Attending Physician: Marquis Hoffman MD History of Present Illness Ms. Gallardo is a very pleasant 73-year-old woman seen today in the setting of acute right lower extremity pain. She was seen by me 1 week ago at the wound clinic in the setting of slow healing small left lower extremity wound and chronic venous insufficiency. Has had left leg wounds since June, now essentially healed. Has a history of bilateral slow healing wounds after falls. Has been dealing with longstanding bilateral lower extremity edema which persists despite diuretics. Wears compression stockings regularly. Venous reflux ultrasound showed left GSV dilation with varices as well as left SSV dilation with reflux and varices. Bilateral JOHN/TBI normal. Plan had been to pursue left GSV VenaSeal to reduce lower extremity swelling and prevent future wounds. States that about 4 days ago noted new sharp pain beginning above her ankle. Pain has gradually progressed up her leg around the outer aspect of her knee/thigh and up to her hip. Denies any preceding trauma. No new activities. Symptoms slightly worse with walking but pain present all the time. Denies fevers or chills. No increase in right lower extremity swelling. No history of prior similar pain. In ED had lower extremity CTA which showed no significant PAD. Venous duplex negative for right lower extremity DVT. Spine CT showed spondylosis/DDD with moderate foraminal narrowing. Past medical history of amyloidosis post bone marrow transplant, remote breast cancer, history of bilateral PE, asthma and paroxysmal SVT, RMSF with some residual right-sided weakness. Allergies Allergy/AdvReac Type Severity Reaction Status Date / Time Sulfa (Sulfonamide Allergy Unknown Rash Verified 11/17/24 08:04 Antibiotics) Home Medications Medication Instructions Recorded Confirmed Type acetaminophen 500 mg tablet 0 mg PO Q6H PRN Pain 09/22/19 11/24/24 History albuterol sulfate 2.5 mg/3 mL 2.5 mg inhalation Q4H PRN 09/22/19 11/24/24 History (0.083 %) solution for nebulization Shortness Of Breath Or Wheezing albuterol sulfate 90 mcg/actuation 0 puff inhalation Q4H PRN Wheezing 09/22/19 11/24/24 History aerosol inhaler (ProAir HFA) aspirin 81 mg tablet 81 mg PO DAILY 10/12/24 11/24/24 History ondansetron HCl 4 mg tablet 4 mg PO Q6H PRN n/v 10/12/24 11/24/24 History tramadol 50 mg tablet 50 mg PO BID PRN Pain 10/12/24 11/24/24 History triamcinolone acetonide 0.5 % 0 applic topical BID 10/12/24 11/24/24 History topical cream furosemide 20 mg tablet 20 mg PO DAILY 11/17/24 11/24/24 History potassium chloride 10 mEq 20 meq PO DAILY 11/17/24 11/24/24 History tablet,extended release Patient History Medical History (Updated 11/24/24 @ 11:32 by Roya Harris MD) Chronic cough Asthma Myopathic disease Encephalitis Wheezing Hemoptysis Elevated d-dimer Surgical History S/P inguinal hernia repair S/P partial mastectomy S/P tonsillectomy S/P LILIYA-BSO Family History (Updated 11/24/24 @ 12:33 by Sonia Salmeron PA-C) Family/Other No problems noted. 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 No JVD Abdomen: Soft, nontender, nondistended Neuro: Nonfocal Psych: Alert orient x3, normal affect and mood Extremities/Vascular: -- 2+ radial bilaterally -- 2 + DP pulses -- Left lateral wound healed. Erythema with scaling over left medial lower leg above the ankle -- Trace to 1+ edema to mid shins bilaterally -- Few telangiectasias/reticular veins and small varices bilaterally -- Healed prior ulcers of the right lower extremity Right leg warm, with some tenderness to touch over lateral thigh. Normal range of motion of ankle/knee. Some reproduction of pain with flexion of the hip. Decreased sensation to light touch, and reduced dorsiflexion of the ankle. Results & Data Vital Signs (Past 12 Hours) Vital Signs Temp Pulse Pulse Resp BP BP Pulse Ox 11/25/24 00:04 98.2 F 76 20 103/69 93 11/24/24 20:13 98.2 F 73 20 112/77 95 11/24/24 14:52 60 11/24/24 14:04 98.2 F 53 L 16 144/93 H 99 11/24/24 13:06 67 13 173/94 H 97 O2 Del Method O2 Flow Rate 11/25/24 00:04 Nasal Cannula 2 11/24/24 20:13 Nasal Cannula 2 11/24/24 14:52 11/24/24 14:04 Nasal Cannula 2 11/24/24 13:06 PG Care Time/CCT Total # of Minutes Spent Total Time Spent with Patient: Total time spent is greater than 50% in coordination of care (as documented) at patient's floor/unit and/or counseling patient: Coding Level of Care Code 93144 INT INP/OBS CARE MIN Diagnoses Acute pain of right lower extremity M79.604
[2024-11-25 08:01] LABS: Hematocrit (blood only) 39.3 % (37.0-47.0); Hemoglobin 12.7 g/dl (12.0-16.0); Mean Corpuscular Hemoglobin 28.6 pg (25.0-34.0); Mean Corpuscular Volume 88.5 fL (80.0-100.0); Platelet Count 121 K/uL (130-400); RDW Standard Deviation 47.5 fL (36.4-46.3); Red Blood Count 4.44 M/uL (4.20-5.40); White Blood Count 3.62 K/ul (4.8-10.8)
[2024-11-25] MEDS: ASPIRIN 81 MG ECTAB PO SCH (08:11)
[2024-11-25 08:17] LABS: Anion Gap 7.0 (3-11); Blood Urea Nitrogen 20.0 mg/dl (6-23); Calcium 8.7 mg/dl (8.6-10.3); Carbon Dioxide 22.0 mmol/L (21-32); Chloride 107.0 mmol/L (98-107); Cholesterol 138.0 mg/dl (0-200); Creatinine Clr Calc Pharmacy 48.3 ml/min; Glucose 92.0 mg/dl (70-99(Fasting)); HDL Cholesterol 34.0 mg/dl; Potassium 4.1 mmol/L (3.5-5.1); Sodium 136.0 mmol/L (136-145); Triglycerides 221.0 mg/dl (0-150)
[2024-11-25 08:32] LABS: Hemoglobin A1C 6.1 % (4.5-5.6)
[2024-11-25 08:39] LABS: Immature Granulocytes # (auto) 0.01 K/uL (0.01-0.20); Immature Granulocytes % (auto) 0.3 %; Ovalocytes 1+
[2024-11-25] MEDS: HYDROmorphone INJ 0.5 MG/0.5 ML SYR IV PRN (12:30)
--- NOTE | 2024-11-25 14:57 | XRay Report ---
LEFT KNEE 2 VIEWS CLINICAL HISTORY: Left knee pain. FINDINGS: AP and crosstable lateral views of the left knee are obtained. No prior studies are availab le for comparison at the time of dictation. The skeletal structures are osteopenic. No fracture is se en. There is moderate to severe narrowing in the medial compartment with bony sclerosis. There is mod erate narrowing at the patellofemoral articulation. There is a joint effusion. There are marginal ost eophytes and patellar enthesophytes. Mild soft tissue swelling is seen around the knee. IMPRESSION: 1. Mild soft tissue swelling and joint effusion with no acute bony abnormality identified. 2. Osteopenia and arthritic change as above. Electronically signed by: Bandar Clemente M.D. 11/25/2024 2:56 PM
[2024-11-25] MEDS: dexAMETHasone 4 MG in SYRINGE 0 ML IV ONE (16:44)
--- NOTE | 2024-11-25 17:11 | Hospitalist Progress Note ---
Date of Service November 25, 2024 Assessment & Plan (1) Intractable pain: (2) Acute pain of right lower extremity: (3) Chronic venous insufficiency: (4) Light chain (AL) amyloidosis: (5) History of bone marrow transplant: (6) History of breast cancer: (7) Bilateral pulmonary embolism: (8) Nephrotic syndrome: (9) Restless leg syndrome: (10) Diastolic dysfunction: (11) Paroxysmal supraventricular tachycardia: Plan Intractable right lower leg pain R/o Complex Regional Pain Syndrome Left Knee Swelling History of need for left lower extremity venous grafting -vascular medicine do not feel pain vascular in nature -imaging so far unremarkable -planned for discharged today but patient in afternoon states intractable pain in RLE and left knee -fell 2 weeks ago could be initial insult, consideration must be given to complex regional pain syndrome given sensitivity to touch in RLE, limited nature of pain to specific dermatome, movement with relative ease (except for left knee in afternoon), no imaging correlate to pain Plan: -PT/OT consulted -start pregablin 25 tid for neuropathic pain -voltaren cream ordered for left knee -check MR left knee and RLE -start decadron 4mg daily for 5 days -Continue Tylenol [id number], tramadol for moderate to severe pain, and Dilaudid for severe breakthrough pain as needed -Fall precautions -Allow regular diet that is easy to chew -Continue baby aspirin daily, will hold on Lasix 20 mg daily and potassium for now as she appears euvolemic History of light chain amyloidosis, s/p autoLogus stem cell transplant in 2016 Remote history of breast cancer in 2012 status post chemo and radiation -follows with oncology at [facility] in [facility], stable -No longer is on medications for amyloidosis HFpEF History of paroxysmal ventricular tachycardia - Monitor on telemetry -Holding Lasix, potassium as above, she is on no blood pressure management Or heart failure medications I spent a total of 50 minutes in direct patient care, including [id number] time with the patient and/or family, reviewing medical records, ordering and reviewing diagnostic tests, and coordinating care with other healthcare providers. This time includes: history taking, physical examination, medical decision making, counseling, ECG interpretation, imaging interpretation, lab interpretation, orders, and education, excluding time spent in the performance of separately billed services. Admission and Anticipated Discharge Date Admission Date: November 24, 2024 Subjective Patient seen and examined at bedside. Patient doing ok today, pain much better than when she came to hospital. Describes the pain in the RLE as burning shooting pain limited to the anterior, lateral and partial posterior portion of calf. Also states later in day that patient is having left knee pain and swelling. Discussed case with daughter who was appreciative of the update. Review of Systems Review of Systems: Constitutional: No fever, sweats or chills Eyes: No diplopia, no worsening or blurred vision ENT: normal hearing, no trouble swallowing with easy to chew food, as per HPI Respiratory: No cough, sputum, dyspnea at rest or on exertion Cardiovascular: No chest pain, tightness or palpitations Abdomen: No pain, nausea, vomiting, diarrhea or constipation Musculoskeletal: As per HPI with R sided leg pain/burning/throbbing, otherwise No joint pain, calf pain. She is on lasix for BLE swelling Neurologic: No weakness, numbness/tingling, or balance problems Psychiatric: No anxiety or depression Skin: No rash or itch. Left lower ext leg with small wound which is healing. Recent hx of cellulitis of the left leg now resolved and off antibiotics. Physical Exam Physical Exam: Gen: A&O 3 NAD HEENT: NCAT, EOMI, not icteric. External ears normal. No rhinorrhea. Moist mucous membranes. Neck: Supple, full range of motion, no observable masses, No meningeal sign. Lungs: No Respiratory distress. CV: RRR, no edema. Abdomen: Soft, nondistended, No rebound tenderness. MSK: No joint swelling, no redness. Tenderness to palpation in RLE, sensitivity to touch and to deeper palpation. Per report left knee swelling Skin: No rashes, petechiae, lesions. Normal color per patient. Neuro: right facial droop chronic Psych: Appropriate for situation. Results & Data Results & Data Vital Signs (Past 12 Hours) Vital Signs Temp Pulse Pulse Resp BP Pulse Ox O2 Del Method 11/25/24 15:53 36.5 C 64 20 115/73 95 Room Air 11/25/24 12:00 36.9 C 84 20 113/82 96 Room Air 11/25/24 08:20 36.8 C 65 20 123/77 95 Room Air 11/25/24 07:10 72 Laboratory Results -personally reviewed, creatinine, Hgb, WBC all at baseline Medications Administered Acetaminophen (Acetaminophen 500 Mg Tab) 1,000 mg PO Q8H [facility] Stop: 12/24/24 14:26 Last Admin: 11/25/24 14:11 Dose: 1,000 mg Documented By: Admin: 11/25/24 05:35 Dose: 1,000 mg Documented By: Admin: 11/24/24 21:44 Dose: 1,000 mg Documented By: Admin: 11/24/24 15:03 Dose: 1,000 mg Documented By: AMY Aspirin (Aspirin 81 Mg Ectab) 81 mg PO DAILY [facility] Stop: 12/25/24 08:59 Last Admin: 11/25/24 08:11 Dose: 81 mg Documented By: AMY Bisacodyl (Bisacodyl 5 Mg Tabec) 5 mg PO DAILY [facility] Stop: 12/25/24 08:59 Last Admin: 11/25/24 08:13 Dose: Not Given Documented By: AMY Doxycycline Hyclate (Doxycycline Hyclate 100 Mg Cap) 100 mg PO BID [facility] Stop: 12/04/24 15:29 Last Admin: 11/25/24 08:11 Dose: 100 mg Documented By: Admin: 11/24/24 21:45 Dose: 100 mg Documented By: [facility] Admin: 11/24/24 15:56 Dose: 100 mg Documented By: ERNIE Heparin Sodium (Porcine) (Heparin Sod 5,000 Unit/0.5 Ml Vial) 5,000 units SQ Q12 [facility] Stop: 12/24/24 20:59 Last Admin: 11/25/24 08:11 Dose: 5,000 units Documented By: Admin: 11/24/24 21:44 Dose: 5,000 units Documented By: JJ Hydromorphone HCl (Hydromorphone Inj 0.5 Mg/0.5 Ml Syr) 0.5 mg IV Q3H PRN PRN Reason: Breakthrough Pain Stop: 12/08/24 14:26 Last Admin: 11/25/24 16:59 Dose: 0.5 mg Documented By: Admin: 11/25/24 12:30 Dose: 0.5 mg Documented By: AMY Tramadol HCl (Tramadol Hcl 50 Mg Tablet) 50 mg PO Q6 PRN PRN Reason: Severe Pain (Scale 7, 8, 9,10) Stop: 12/24/24 14:26 Last Admin: 11/25/24 14:07 Dose: 50 mg Documented By: AMY
[2024-11-25] MEDS: ONDANSETRON INJ 2 MG/ML 2 ML VIAL IV PRN (17:53)
[2024-11-25] MEDS: GADOBUTROL 65ML VIAL IV ONE (21:03)
[2024-11-25] MEDS: DICLOFENAC SOD 1% GEL 100 GM TUBE EXT SCH (21:37)
[2024-11-25] MEDS: PREGABALIN 25 MG CAP PO SCH (21:37)
--- NOTE | 2024-11-25 23:22 | Magnetic Resonance Report ---
Exam(s): MRI LEFT KNEE Without Contrast EXAM: MR Left Lower Extremity Without Intravenous Contrast, Knee CLINICAL HISTORY: Reason for exam: concern for left knee ligament damage/effusion. TECHNIQUE: Multiplanar magnetic resonance images of the left knee without intravenous contrast. COMPARISON: X-rays dated 11/25/2024. FINDINGS: There is a large joint effusion. There is a 1.5 cm cystic area noted posterolaterally. The anterior cruciate ligament is not visualized. The posterior cruciate ligament, the patellar tendon, quadriceps tendon, and the medial lateral collateral ligaments are seen appear intact. Bony structures are intact. No evidence of acute fracture or dislocation. There are hypertrophic degenerative changes. There is signal abnormality noted in the medial femoral condyle and medial tibial plateau. There are osteochondral defects involving the medial femoral condyle and medial tibial plateau. There are degenerative are desiccated changes noted within the menisci. There is a tear in the body and posterior horn of the medial meniscus extending to its inferior surface. IMPRESSION: There is a large joint effusion. There is a 1.5 cm cystic area noted posterolaterally. The anterior cruciate ligament is either completely torn or degenerated. There are hypertrophic degenerative changes. There are osteochondral defects involving the medial femoral condyle and medial tibial plateau with apparent bone bruising. There is a tear in the body and posterior horn of the medial meniscus Electronically signed by: Jeramy Biggs MD 11/25/24 23:21 PM
--- NOTE | 2024-11-25 23:32 | Magnetic Resonance Report ---
Exam(s): MRI EXTREMITY W/WO Contrast IV Amt: 6.5ml gadavist EXAM: MR Right Lower Extremity Without and With Intravenous Contrast, Tibia and Fibula CLINICAL HISTORY: Reason for exam: ongoing right lower extremity pain. TECHNIQUE: Multiplanar magnetic resonance images of the right tibia and fibula without and with intravenous contrast. CONTRAST: Patient received 6.5ml Gadavist of IV contrast COMPARISON: No relevant prior studies available. FINDINGS: Bones/joints: No acute fracture. No dislocation. There are hypertrophic degenerative changes in the knee. There is signal abnormality in the medial femoral condyle and medial tibial plateau. There are hypertrophic degenerative changes in the ankle. There is signal abnormality in the medial talar dome in the adjacent distal tibia. Soft tissues: No masses or fluid collections are seen. There is a knee joint effusion.. The visualized musculature is unremarkable. IMPRESSION: There are hypertrophic degenerative changes . There is bone marrow edema in the medial femoral condyle and medial tibial plateau. This may represent bone bruising.. There is signal abnormality in the medial talar dome in the adjacent distal tibia. 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 Electronically signed by: Jeramy Biggs MD 11/25/24 23:31 PM
[2024-11-26 06:55] LABS: Hematocrit (blood only) 42.8 % (37.0-47.0); Hemoglobin 14.0 g/dl (12.0-16.0); Mean Corpuscular Hemoglobin 28.8 pg (25.0-34.0); Mean Corpuscular Volume 88.1 fL (80.0-100.0); Platelet Count 132 K/uL (130-400); RDW Standard Deviation 45.8 fL (36.4-46.3); Red Blood Count 4.86 M/uL (4.20-5.40); White Blood Count 3.27 K/ul (4.8-10.8)
[2024-11-26 07:22] LABS: Anion Gap 8.0 (3-11); Calcium 9.4 mg/dl (8.6-10.3); Carbon Dioxide 23.0 mmol/L (21-32); Chloride 105.0 mmol/L (98-107); Magnesium 1.7 mg/dl (1.7-2.4); Potassium 4.3 mmol/L (3.5-5.1); Sodium 136.0 mmol/L (136-145)
[2024-11-26 07:28] LABS: Blood Urea Nitrogen 19.0 mg/dl (6-23); Creatinine Clr Calc Pharmacy 59.5 ml/min; Glucose 106.0 mg/dl (70-99(Fasting))
[2024-11-26] MEDS ORDERED: MoRPHine SULFATE 4 MG/ML 1 ML CARP\\VIAL IV PRN (08:47)
--- NOTE | 2024-11-26 09:50 | Orthopedic Consultation ---
Date of Consultation November 26, 2024 Assessment & Plan (1) Left knee pain: Advised the patient that she does have a chronic ACL and meniscus tears along with significant arthritis affecting all 3 compartments. I also advised her that she has a larger effusion in her left knee that we could aspirate and po ssibly inject with a corticosteroid. She elects to try to manage it in a more conservative manner with a compressive stocking. We will contact the [facility] bracing person in office to see about an production tool engineer brace for her to wear when active. I feel that she will need to go to a rehab facility upon discharge. She is WBAT. We will have her follow-up in the clinic in 2 weeks. If she still has a significant effusion we will consider aspiration and corticosteroid injection. Patient verbalizes understanding of all the information that was provided. She is asked for the care that she received. If she has questions or concerns that should arise prior to her follow-up in our office, she will contact the clinic. Otherwise the patient is orthopedically stable for discharge and we will sign off at this point. (2) Effusion, left knee: Will manage with [employer] stocking Supervising Physician Co-Signing Physician Notes I, Dr. Moss, saw and examined the patient, reviewed the chart and studies. I discussed the management with my PA. I reviewed my PAs note and agree with the documented findings and attest to completing the substantive portion of medical decision making and plan of care I developed. Focusing on the patient's left lower extremity: 2+ DP pulse Sensation to light touch is intact Motor to the gastroc soleus, tibialis anterior, and EHL is 5/5. Able to perform straight leg raise. + medial joint line tenderness. - Erica's Ligamentous examination exhibits: Hugo 1 mm anterior translation followed by guarding Posterior drawer stable Varus stress at 0 and 30 stable Valgus stress at 0 and 30 stable ++ Effusion Range of motion 0-90. + Tenderness to palpation proximal lower leg at the edge of her peripheral vascular disease. History of Present Illness Reason for Consultation: Left knee pain and swelling Requesting Physician: Chuck Moss MD Attending Physician: Hugh Maya MD History of Present Illness This 73-year-old female seen today in consultation for left knee pain and swelling that has been ongoing for the past 6 days. Patient states that she did sustain a fall about 3 weeks ago but had no issues for several weeks afterwards. She states that her left knee is swollen. She was advised that she also has meniscus and ACL tears in the left knee that are diagnosed by MRI study. Patient states the pain medicine she is receiving is currently alleviating her pain. She states that she does have chronic issues with intermittent swelling in the left lower extremity and was considering being fitted for custom compressive stockings. She states she normally walks with a cane for ambulatory assistance. She states that she has not noticed any significant instability in the knee. Patient also denies chest pain, shortness of breath, fever, chills, sweats, nausea, vomiting, diarrhea but does have a complaint of numbness or tingling in her toes and distal foot bilaterally that has been a chronic issue for several years. Allergies Allergy/AdvReac Type Severity Reaction Status Date / Time Sulfa (Sulfonamide Allergy Unknown Rash Verified 11/17/24 08:04 Antibiotics) Home Medications Medication Instructions Recorded Confirmed Type acetaminophen 500 mg tablet 0 mg PO Q6H PRN Pain 09/22/19 11/24/24 History albuterol sulfate 2.5 mg/3 mL 2.5 mg inhalation Q4H PRN 09/22/19 11/24/24 History (0.083 %) solution for nebulization Shortness Of Breath Or Wheezing albuterol sulfate 90 mcg/actuation 0 puff inhalation Q4H PRN Wheezing 09/22/19 11/24/24 History aerosol inhaler (ProAir HFA) aspirin 81 mg tablet 81 mg PO DAILY 10/12/24 11/24/24 History ondansetron HCl 4 mg tablet 4 mg PO Q6H PRN n/v 10/12/24 11/24/24 History tramadol 50 mg tablet 50 mg PO BID PRN Pain 10/12/24 11/24/24 History triamcinolone acetonide 0.5 % 0 applic topical BID 10/12/24 11/24/24 History topical cream furosemide 20 mg tablet 20 mg PO DAILY 11/17/24 11/24/24 History potassium chloride 10 mEq 20 meq PO DAILY 11/17/24 11/24/24 History tablet,extended release Patient History Medical History (Updated 11/26/24 @ 10:03 by Nader Evans PA-C) Chronic cough Asthma Myopathic disease Encephalitis Wheezing Hemoptysis Elevated d-dimer Surgical History S/P inguinal hernia repair S/P partial mastectomy S/P tonsillectomy S/P LILIYA-BSO Family History Family/Other No problems noted. Father Heart disease Social History Smoking Status: Never smoker Hx Alcohol Use: No Hx Substance Use: No Preferred Language: Romanian Communication Ability: Effective Inhalation Therapy Aides Teacher Required: No Beliefs That Will Affect Care: None marital status: Current Living Situation: Spouse Feels Safe at Home: Yes Assistive Devices: Cane and Walker Review of Systems Review of Systems: All systems reviewed & are unremarkable except as noted in Subjective Physical Exam Physical Exam: Left lower extremity: Patient has a 2+ effusion palpable on the anterior aspect of the knee in the superolateral area. Anterior drawer testing and Hugo test are both positive with laxity. Active knee range of motion is from 0 degrees of extension to beyond 90 degrees of flexion. She is able to perform active straight leg raise test. She is able to actively dorsi and plantarflex her foot. She does have venous stasis dermatitis over the lower leg just proximal to the ankle joint. Her peripheral pulses are 2+. Her capillary refill is less than 2 seconds. She is able to detect light sensation to touch over the pads of all digits but does have a numb tingly sensation. Results & Data Vital Signs (Past 12 Hours) Vital Signs Temp Pulse Pulse Resp BP Pulse Ox O2 Del Method 11/26/24 07:38 36.7 C 58 L 18 157/88 H 94 Room Air 11/26/24 07:32 63 11/26/24 02:23 36.6 C 79 16 124/79 96 Room Air 11/25/24 23:20 83 11/25/24 22:45 36.5 C 83 18 134/92 97 Room Air Diagnostic Findings Laboratory Results WBC 3.27 K/ul (4.8-10.8) L 11/26/24 06:10 RBC 4.86 M/uL (4.20-5.40) 11/26/24 06:10 Hgb 14.0 g/dl (12.0-16.0) 11/26/24 06:10 Hct 42.8 % (37.0-47.0) 11/26/24 06:10 MCV 88.1 fL (80.0-100.0) 11/26/24 06:10 MCH 28.8 pg (25.0-34.0) 11/26/24 06:10 MCHC 32.7 g/dL (32.0-36.0) 11/26/24 06:10 RDW Std Deviation 45.8 fL (36.4-46.3) 11/26/24 06:10 RDW Coeff of Sanchez 14.4 % (11.5-14.5) 11/26/24 06:10 Plt Count 132 K/uL (130-400) 11/26/24 06:10 MPV 10.1 fL (9.4-12.4) 11/26/24 06:10 Immature Gran % (Auto) 0.3 % 11/25/24 07:06 Neut % (Auto) 65.1 % 11/25/24 07:06 Lymph % (Auto) 18.0 % 11/25/24 07:06 Cameron % (Auto) 11.3 % 11/25/24 07:06 Eos % (Auto) 4.7 % 11/25/24 07:06 Baso % (Auto) 0.6 % 11/25/24 07:06 Neut # (Auto) 2.36 K/uL (1.40-6.50) 11/25/24 07:06 Lymph # (Auto) 0.65 K/uL (1.20-3.40) L 11/25/24 07:06 Cameron # (Auto) 0.41 K/uL (0.11-0.59) 11/25/24 07:06 Eos # (Auto) 0.17 K/uL (0.00-0.50) 11/25/24 07:06 Baso # (Auto) 0.02 K/uL (0.00-0.20) 11/25/24 07:06 Immature Gran # (Auto) 0.01 K/uL (0.01-0.20) 11/25/24 07:06 Ovalocytes 1+ 11/25/24 07:06 ESR 30 mm/hr (0-30) 11/26/24 06:10 PT 10.3 Seconds (9.0-12.0) 11/24/24 06:45 INR 0.9 (0.9-1.1) 11/24/24 06:45 Sodium 136 mmol/L (136-145) 11/26/24 06:10 Potassium 4.3 mmol/L (3.5-5.1) 11/26/24 06:10 Chloride 105 mmol/L (98-107) 11/26/24 06:10 Carbon Dioxide 23 mmol/L (21-32) 11/26/24 06:10 Anion Gap 8 (3-11) 11/26/24 06:10 BUN 19 mg/dl (6-23) 11/26/24 06:10 Creatinine 0.69 mg/dl (0.6-1.2) 11/26/24 06:10 Est Cr Clr Drug Dosing 59.5 ml/min 11/26/24 06:10 eGFR 92.73 11/26/24 06:10 BUN/Creatinine Ratio 27.5 (10-20) H 11/26/24 06:10 Glucose 106 mg/dl (70-99(Fasting)) H 11/26/24 06:10 Estimat Average Glucose 128 mg/dl 11/25/24 07:06 Hemoglobin A1c 6.1 % (4.5-5.6) H 11/25/24 07:06 Lactate 0.8 mmol/L (0.4-2.0) 11/24/24 06:45 Calcium 9.4 mg/dl (8.6-10.3) 11/26/24 06:10 Phosphorus 3.0 mg/dl (2.5-4.9) 11/26/24 06:10 Magnesium 1.7 mg/dl (1.7-2.4) 11/26/24 06:10 Total Bilirubin 0.4 mg/dl (0.2-1.0) 11/24/24 06:45 AST 31 U/L (13-39) 11/24/24 06:45 ALT 17 U/L (7-52) 11/24/24 06:45 Alkaline Phosphatase 108 U/L (34-104) H 11/24/24 06:45 Total Creatine Kinase 94 U/L (26-192) 11/24/24 06:45 C-Reactive Protein 2.12 mg/dl (0-0.5) H 11/26/24 06:10 Total Protein 7.0 gm/dl (6.0-8.3) 11/24/24 06:45 Albumin 4.0 gm/dl (3.4-5.0) 11/24/24 06:45 Globulin 3.0 gm/dl (2.5-4.0) 11/24/24 06:45 Albumin/Globulin Ratio 1.3 (0.9-2) 11/24/24 06:45 Triglycerides 221 mg/dl (0-150) H 11/25/24 07:06 Cholesterol 138 mg/dl (0-200) 11/25/24 07:06 LDL Cholesterol, Calc 60 mg/dl 11/25/24 07:06 VLDL Cholesterol, Calc 44 mg/dl (0-30) H 11/25/24 07:06 HDL Cholesterol 34 mg/dl 11/25/24 07:06 Cholesterol/HDL Ratio 4.1 (0-5) 11/25/24 07:06 Lipase 22 U/L (11-82) 11/24/24 06:45 Urine Color Yellow 11/24/24 08:34 Urine Appearance Clear (Clear) 11/24/24 08:34 Urine pH 5.0 (4.5-7.5) 11/24/24 08:34 Ur Specific [place] 1.017 (1.000-1.030) 11/24/24 08:34 Urine Protein Trace (Negative) H 11/24/24 08:34 Urine Glucose (UA) Negative (Negative) 11/24/24 08:34 Urine Ketones Negative (Negative) 11/24/24 08:34 Urine Blood Negative (Negative) 11/24/24 08:34 Urine Nitrite Negative (Negative) 11/24/24 08:34 Urine Bilirubin Negative (Negative) 11/24/24 08:34 Urine Urobilinogen Negative (Negative) 11/24/24 08:34 Ur Leukocyte Esterase Negative (Negative) 11/24/24 08:34 Urine WBC (Auto) 0-5 /hpf (0-5) 11/24/24 08:34 Urine RBC (Auto) 0-2 /hpf (0-2) 11/24/24 08:34 U Hyaline Cast (Auto) 0-2 /lpf (0-2) 11/24/24 08:34 U Epithel Cells (Auto) 0-2 /hpf (0-2) 11/24/24 08:34 Urine Bacteria (Auto) None Seen (None Seen) 11/24/24 08:34 Urine Comment 11/24/24 08:34 Acetaminophen 4 ug/ml (10-30) L 11/24/24 06:45 Anaplasma Smear See Comment 11/24/24 15:34 Babesia Smear See Comment 11/24/24 15:34 Lyme Disease Screen Equivocal (Negative) H 11/24/24 15:34 Lyme Tier 2 IgG Confirm Positive (Negative) H 11/24/24 15:34 Lyme Tier 2 IgM Confirm Negative (Negative) 11/24/24 15:[address] 11/24/24 06:41 EXAM: CT lumbar spine wo con CLINICAL HISTORY: Low back pain, right lower extremity pain TECHNIQUE: CT non-contrast scan of lumbar spine done. Axial images obtained with reformatted coronal and sagittal images and submitted for interpretation. One of the following dose reduction techniques was utilized for this exam: Automated exposure control, adjustment of the mA and/or kV according to patient size, and use of iterative reconstruction. DLP: 963.6 mGY.cm. COMPARISON: None FINDINGS: Vertebrae: Exaggerated lumbar lordosis. No fractures, lytic or sclerotic lesions. Generalized osteopenia. Anterior wedging of T12. End-plate sclerosis at T11-12. Grade 1 retrolisthesis of T12 over L1 and L1 over L2. Grade 1/minimal anterolisthesis of L3 over L4 and L4 over L5. Intervertebral Discs: Multilevel disc degenerative changes are noted, as described [id number]: T12-L1: Reduced disc height with diffuse disc bulge measuring 3.8 mm, causing ventral thecal sac indentation, and encroachment of bilateral neural foramina. L1-L2: Diffuse disc bulge measuring 4.2 mm, causing ventral thecal sac indentation, and mild bilateral neural foraminal stenosis. L2-L3: Diffuse disc bulge measuring 4.1 mm, causing ventral thecal sac indentation, and moderate bilateral neural foraminal stenosis. L3-L4: Diffuse disc bulge measuring 3.2 mm, in combination with bilateral facet arthropathy causing ventral thecal sac indentation, and mild bilateral neural foraminal stenosis (rightleft). L4-L5: Diffuse disc bulge measuring 4.8 mm, in combination with bilateral facet arthropathy causing ventral thecal sac indentation, and moderate bilateral neural foraminal stenosis. L5-S1: Diffuse disc bulge measuring 3.8 mm, in combination with bilateral facet arthropathy causing ventral thecal sac indentation, mild right and moderate left neural foraminal stenosis. Spinal Canal: The spinal canal is of normal caliber with no evidence of spinal stenosis. Facet Joints: Multilevel facet arthropathy. Soft Tissues: Normal appearance of the paraspinal soft tissues. No abnormal masses, fluid collections, or signs of inflammation. Atherosclerotic vascular calcifications. IMPRESSION: 1. Lumbar spondylosis with degenerative disc disease as described. 2. No acute fractures or dislocations. Electronically signed by Armaan Barroso 11-24-2024 08:18 AM Venous Doppler Study 11/24/24 07:00 ULTRASOUND RIGHT LOWER EXTREMITY VENOUS CLINICAL HISTORY: Right leg pain. COMPARISON STUDY: Bilateral lower extremity venous ultrasound dated 09/22/2019 TECHNIQUE: Real-time, grayscale, and color Doppler sonography of the deep veins of the right lower extremity was performed from the inguinal crease to the calf. Compression and augmentation were utilized. FINDINGS: There is no sonographic evidence of deep venous thrombosis identified in the right lower extremity. The common femoral, superficial femoral, and p opliteal veins are patent and normally compressible. The greater saphenous vein and the profunda femoris vein at the junction with the common femoral vein are clear. The visualized calf veins are patent. IMPRESSION: There is no sonographic evidence of deep venous thrombosis identified in the right lower extremity. ACT 112: Negative or not required by law. Electronically signed by: Bandar Clemente M.D. 11/24/2024 8:39 AM Lower Extremity CTA 11/24/24 09:24 CT angio LE RT w inc wo if don CLINICAL HISTORY: RLE intractable pain COMPARISON STUDY: None FINDINGS: CTA: Right common femoral artery is widely patent. Deep femoral artery is widely patent. The right superficial femoral and popliteal arteries are widely patent. There is mild atherosclerotic calcification distally at the right SFA. There is normal widely patent three-vessel runoff to the right foot. Other findings: There is no soft tissue hematoma or abscess at the right lower extremity. There is mild osteoarthritis at the right hip. There is severe osteoarthritis at the right knee. There are mild degenerative changes at the right ankle. No fracture or dislocation seen. No evidence of osteomyelitis. There are mild varicose veins medially. IMPRESSION: 1. No acute findings seen. 2. Unremarkable CTA of the right lower extremity. ACT 112: Negative or not required by law. Electronically signed by: Jareth Vigil M.D. 11/24/2024 10:28 AM Knee X-Ray 11/25/24 14:33 LEFT KNEE 2 VIEWS CLINICAL HISTORY: Left knee pain. FINDINGS: AP and crosstable lateral views of the left knee are obtained. No prior studies are available for comparison at the time of dictation. The skeletal structures are osteopenic. No fracture is seen. There is moderate to severe narrowing in the medial compartment with bony sclerosis. There is moderate narrowing at the patellofemoral articulation. There is a joint effusion. There are marginal osteophytes and patellar enthesophytes. Mild soft tissue swelling is seen around the knee. IMPRESSION: 1. Mild soft tissue swelling and joint effusion with no acute bony abnormality identified. 2. Osteopenia and arthritic change as above. Electronically signed by: Bandar Clemente M.D. 11/25/2024 2:56 PM Lower Extremity MRI 11/25/24 14:33 Exam(s): MRI EXTREMITY W/WO Contrast IV Amt: 6.5ml gadavist EXAM: MR Right Lower Extremity Without and With Intravenous Contrast, Tibia and Fibula CLINICAL HISTORY: Reason for exam: ongoing right lower extremity pain. TECHNIQUE: Multiplanar magnetic resonance images of the right tibia and fibula without and with intravenous contrast. CONTRAST: Patient received 6.5ml Gadavist of IV contrast COMPARISON: No relevant prior studies available. FINDINGS: Bones/joints: No acute fracture. No dislocation. There are hypertrophic degenerative changes in the knee. There is signal abnormality in the medial femoral condyle and medial tibial plateau. There are hypertrophic degenerative changes in the ankle. There is signal abnormality in the medial talar dome in the adjacent distal tibia. Soft tissues: No masses or fluid collections are seen. There is a knee joint effusion.. The visualized musculature is unremarkable. IMPRESSION: There are hypertrophic degenerative changes . There is bone marrow edema in the medial femoral condyle and medial tibial plateau. This may represent bone bruising.. There is signal abnormality in the medial talar dome in the adjacent distal tibia. 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 Electronically signed by: Jeramy Biggs MD 11/25/24 23:31 PM Knee MRI 11/25/24 15:36 Exam(s): MRI LEFT KNEE Without Contrast EXAM: MR Left Lower Extremity Without Intravenous Contrast, Knee CLINICAL HISTORY: Reason for exam: concern for left knee ligament damage/effusion. TECHNIQUE: Multiplanar magnetic resonance images of the left knee without intravenous contrast. COMPARISON: X-rays dated 11/25/2024. FINDINGS: There is a large joint effusion. There is a 1.5 cm cystic area noted posterolaterally. The anterior cruciate ligament is not visualized. The posterior cruciate ligament, the patellar tendon, quadriceps tendon, and the medial lateral collateral ligaments are seen appear intact. Bony structures are intact. No evidence of acute fracture or dislocation. There are hypertrophic degenerative changes. There is signal abnormality noted in the medial femoral condyle and medial tibial plateau. There are osteochondral defects involving the medial femoral condyle and medial tibial plateau. There are degenerative are desiccated changes noted within the menisci. There is a tear in the body and posterior horn of the medial meniscus extending to its inferior surface. IMPRESSION: There is a large joint effusion. There is a 1.5 cm cystic area noted posterolaterally. The anterior cruciate ligament is either completely torn or degenerated. There are hypertrophic degenerative changes. There are osteochondral defects involving the medial femoral condyle and medial tibial plateau with apparent bone bruising. There is a tear in the body and posterior horn of the medial meniscus Electronically signed by: Jeramy Biggs MD 11/25/24 23:21 PM LEFT KNEE 2 VIEWS CLINICAL HISTORY: Left knee pain. FINDINGS: AP and crosstable lateral views of the left knee are obtained. No prior studies are available for comparison at the time of dictation. The skeletal structures are osteopenic. No fracture is seen. There is moderate to severe narrowing in the medial compartment with bony sclerosis. There is moderate narrowing at the patellofemoral articulation. There is a joint effusion. There are marginal osteophytes and patellar enthesophytes. Mild soft tissue swelling is seen around the knee.
[2024-11-26 16:02] VITALS: TEMP 97.7
--- NOTE | 2024-11-26 16:56 | Hospitalist Progress Note ---
Date of Service November 26, 2024 Assessment & Plan (1) Intractable pain: (2) Acute pain of right lower extremity: (3) Chronic venous insufficiency: (4) Light chain (AL) amyloidosis: (5) History of bone marrow transplant: (6) History of breast cancer: (7) Bilateral pulmonary embolism: (8) Nephrotic syndrome: (9) Restless leg syndrome: (10) Diastolic dysfunction: (11) Paroxysmal supraventricular tachycardia: Plan Intractable right lower leg pain R/o Complex Regional Pain Syndrome Left Knee ACL Tear Left Knee Effusion History of need for left lower extremity venous grafting -vascular medicine do not feel pain vascular in nature -imaging so far unremarkable -planned for discharged today but patient in afternoon states intractable pain in RLE and left knee -fell 2 weeks ago could be initial insult, consideration must be given to complex regional pain syndrome given sensitivity to touch in RLE, limited nature of pain to specific dermatome, movement with relative ease (except for left knee in afternoon) -MR lower extremity confirms bone bruise in correlation with pain, making complex regional pain syndrome most likely diagnosis for sensitivty to touch -MR left knee shows ACL tear, large effusion Plan: -PT/OT consulted, patient insurance denied rehab stay -home health agency referrals sent -increase pregablin to 50 tid for neuropathic pain -ortho consulted, appreciate recs -voltaren cream ordered for left knee -continue decadron 4mg daily for 5 days -Continue Tylenol [id number], stop tramadol, start oxycodone for moderate to severe pain, and Dilaudid for severe breakthrough pain as needed -Fall precautions -Allow regular diet that is easy to chew -Continue baby aspirin daily, will hold on Lasix 20 mg daily and potassium for now as she appears euvolemic History of light chain amyloidosis, s/p autoLogus stem cell transplant in 2016 Remote history of breast cancer in 2012 status post chemo and radiation -follows with oncology at [facility] in [facility], stable -No longer is on medications for amyloidosis HFpEF History of paroxysmal ventricular tachycardia - Monitor on telemetry -Holding Lasix, potassium as above, she is on no blood pressure management Or heart failure medications I spent a total of 55 minutes in direct patient care, including [id number] time with the patient and/or family, reviewing medical records, ordering and reviewing diagnostic tests, and coordinating care with other healthcare providers. This time includes: history taking, physical examination, medical decision making, counseling, ECG interpretation, imaging interpretation, lab interpretation, orders, and education, excluding time spent in the performance of separately billed services. Admission and Anticipated Discharge Date Admission Date: November 24, 2024 Subjective Patient seen and examined at bedside. Patient pain is improving in RLE. Discussed case extensively with patient, daughter, and grandson, who were appreciative of the updates and care. Review of Systems Review of Systems: Constitutional: No fever, sweats or chills Eyes: No diplopia, no worsening or blurred vision ENT: normal hearing, no trouble swallowing with easy to chew food, as per HPI Respiratory: No cough, sputum, dyspnea at rest or on exertion Cardiovascular: No chest pain, tightness or palpitations Abdomen: No pain, nausea, vomiting, diarrhea or constipation Musculoskeletal: As per HPI with R sided leg pain/burning/throbbing, otherwise No joint pain, calf pain. She is on lasix for BLE swelling Neurologic: No weakness, numbness/tingling, or balance problems Psychiatric: No anxiety or depression Skin: No rash or itch. Left lower ext leg with small wound which is healing. Recent hx of cellulitis of the left leg now resolved and off antibiotics. Physical Exam Physical Exam: Gen: A&O 3 NAD HEENT: NCAT, EOMI, not icteric. External ears normal. No rhinorrhea. Moist mucous membranes. Neck: Supple, full range of motion, no observable masses, No meningeal sign. Lungs: No Respiratory distress. CV: RRR, no edema. Abdomen: Soft, nondistended, No rebound tenderness. MSK: No joint swelling, no redness. Tenderness to palpation in RLE, sensitivity to touch and to deeper palpation. Left knee in brace Skin: No rashes, petechiae, lesions. Normal color per patient. Neuro: right facial droop chronic Psych: Appropriate for situation. Results & Data Results & Data Vital Signs (Past 12 Hours) Vital Signs Temp Pulse Pulse Resp BP Pulse Ox O2 Del Method 11/26/24 16:01 36.5 C 56 L 20 155/88 H 95 Room Air 11/26/24 11:07 36.3 C L 89 18 151/90 H 95 Room Air 11/26/24 07:38 36.7 C 58 L 18 157/88 H 94 Room Air 11/26/24 07:32 63 Laboratory Results -personally reviewed, no leukocytosis, Hgb at baseline, creatinine at baseline Medications Administered Acetaminophen (Acetaminophen 500 Mg Tab) 1,000 mg PO Q8H IVET Stop: 12/24/24 14:26 Last Admin: 11/26/24 13:44 Dose: 1,000 mg Documented By: Admin: 11/26/24 06:23 Dose: 1,000 mg Documented By: Admin: 11/25/24 21:41 Dose: 1,000 mg Documented By: Admin: 11/25/24 14:11 Dose: 1,000 mg Documented By: Admin: 11/25/24 05:35 Dose: 1,000 mg Documented By: Admin: 11/24/24 21:44 Dose: 1,000 mg Documented By: Admin: 11/24/24 15:03 Dose: 1,000 mg Documented By: AMY Aspirin (Aspirin 81 Mg Ectab) 81 mg PO DAILY IVET Stop: 12/25/24 08:59 Last Admin: 11/26/24 07:56 Dose: 81 mg Documented By: Admin: 11/25/24 08:11 Dose: 81 mg Documented By: AMY Bisacodyl (Bisacodyl 5 Mg Tabec) 5 mg PO DAILY IVET Stop: 12/25/24 08:59 Last Admin: 11/26/24 07:57 Dose: Not Given Documented By: Admin: 11/25/24 08:13 Dose: Not Given Documented By: AMY Dexamethasone (Dexamethasone 4 Mg Tab) 4 mg PO DAILY IVET Stop: 12/26/24 08:59 Last Admin: 11/26/24 10:38 Dose: 4 mg Documented By: MODESTO Diclofenac Sodium (Diclofenac Sod 1% Gel 100 Gm Tube) 4 gm EXT Q12 IVET; Protocol Stop: 12/25/24 20:59 Last Admin: 11/26/24 07:57 Dose: 4 gm Documented By: Admin: 11/25/24 21:37 Dose: 4 gm Documented By: JJ Doxycycline Hyclate (Doxycycline Hyclate 100 Mg Cap) 100 mg PO BID IVET Stop: 12/04/24 15:29 Last Admin: 11/26/24 07:56 Dose: 100 mg Documented By: Admin: 11/25/24 21:37 Dose: 100 mg Documented By: Admin: 11/25/24 08:11 Dose: 100 mg Documented By: Admin: 11/24/24 21:45 Dose: 100 mg Documented By: Admin: 11/24/24 15:56 Dose: 100 mg Documented By: ERNIE Heparin Sodium (Porcine) (Heparin Sod 5,000 Unit/0.5 Ml Vial) 5,000 units SQ Q12 [facility] Stop: 12/24/24 20:59 Last Admin: 11/26/24 07:56 Dose: 5,000 units Documented By: Admin: 11/25/24 21:37 Dose: 5,000 units Documented By: Admin: 11/25/24 08:11 Dose: 5,000 units Documented By: Admin: 11/24/24 21:44 Dose: 5,000 units Documented By: JJ Ondansetron HCl (Ondansetron Inj 2 Mg/Ml 2 Ml Vial) 4 mg IV Q4H PRN PRN Reason: Nausea And Vomiting Stop: 12/24/24 14:26 Last Admin: 11/25/24 17:53 Dose: 4 mg Documented By: RAMON Oxycodone HCl (Oxycodone Hcl Ir 5 Mg Tab (Immediate Release)) 5 mg PO Q4 PRN PRN Reason: Severe Pain (Scale 7, 8, 9,10) Stop: 12/10/24 08:46 Last Admin: 11/26/24 15:58 Dose: 5 mg Documented By: MODESTO Pregabalin (Pregabalin 25 Mg Cap) 25 mg PO TID [facility] Stop: 12/25/24 20:59 Last Admin: 11/26/24 13:44 Dose: 25 mg Documented By: Admin: 11/26/24 07:56 Dose: 25 mg Documented By: Admin: 11/25/24 21:37 Dose: 25 mg Documented By: JJ
[2024-11-26] MEDS: PREGABALIN 50 MG CAP PO SCH (20:22)
[2024-11-27] MEDS ORDERED: PREGABALIN 75 MG CAP PO SCH
[2024-11-27 06:21] LABS: Hematocrit (blood only) 39.4 % (37.0-47.0); Hemoglobin 13.3 g/dl (12.0-16.0); Mean Corpuscular Hemoglobin 29.6 pg (25.0-34.0); Mean Corpuscular Volume 87.6 fL (80.0-100.0); Platelet Count 166 K/uL (130-400); RDW Standard Deviation 45.9 fL (36.4-46.3); Red Blood Count 4.50 M/uL (4.20-5.40); White Blood Count 4.69 K/ul (4.8-10.8)
[2024-11-27 06:51] LABS: Anion Gap 7.0 (3-11); Blood Urea Nitrogen 26.0 mg/dl (6-23); Calcium 9.4 mg/dl (8.6-10.3); Carbon Dioxide 27.0 mmol/L (21-32); Chloride 105.0 mmol/L (98-107); Creatinine Clr Calc Pharmacy 48.9 ml/min; Glucose 92.0 mg/dl (70-99(Fasting)); Magnesium 1.8 mg/dl (1.7-2.4); Potassium 4.2 mmol/L (3.5-5.1); Sodium 139.0 mmol/L (136-145)
[2024-11-27 07:03] VITALS: BP 127/75; PULSE 63; RESP 18; O2SAT 96
--- NOTE | 2024-11-27 17:14 | Discharge Summary ---
Discharge Summary Date of Service November 27, 2024 Principal Dx & Hospital Course #1 = Principal Diagnosis (1) Intractable pain: (2) Acute pain of right lower extremity: (3) Chronic venous insufficiency: (4) Light chain (AL) amyloidosis: (5) History of bone marrow transplant: (6) History of breast cancer: (7) Bilateral pulmonary embolism: (8) Nephrotic syndrome: (9) Restless leg syndrome: (10) Diastolic dysfunction: (11) Paroxysmal supraventricular tachycardia: Plan Intractable right lower leg pain R/o Complex Regional Pain Syndrome Left Knee ACL Tear Left Knee Effusion History of need for left lower extremity venous grafting -vascular medicine do not feel pain vascular in nature -imaging so far unremarkable -planned for discharged today but patient in afternoon states intractable pain i n RLE and left knee -fell 2 weeks ago could be initial insult, consideration must be given to complex regional pain syndrome given sensitivity to touch in RLE, limited nature of pain to specific dermatome, movement with relative ease (except for left knee in afternoon) -MR lower extremity confirms bone bruise in correlation with pain, making complex regional pain syndrome most likely diagnosis for sensitivty to touch -MR left knee shows ACL tear, large effusion Plan: -PT/OT consulted, patient insurance denied rehab stay -home health agency referrals sent -increase pregablin to 50 tid for neuropathic pain -ortho consulted, appreciate recs -voltaren cream ordered for left knee -continue decadron 4mg daily for 5 days -Continue Tylenol [id number], stop tramadol, start oxycodone for moderate to severe pain, and Dilaudid for severe breakthrough pain as needed -Fall precautions -Allow regular diet that is easy to chew -Continue baby aspirin daily, will hold on Lasix 20 mg daily and potassium for now as she appears euvolemic History of light chain amyloidosis, s/p autoLogus stem cell transplant in 2016 Remote history of breast cancer in 2011 status post chemo and radiation -follows with oncology at [facility] in [facility], stable -No longer is on medications for amyloidosis HFpEF History of paroxysmal ventricular tachycardia - Monitor on telemetry -Holding Lasix, potassium as above, she is on no blood pressure management Or heart failure medications Notes For Next Care Provider This is a 73-year-old female with PMHx of light chain amyloidosis diagnosed Jun 2019, status post autologous stem cell transplant in October 2019, solitary plasmacytoma and relapse, radiation, remote hx of breast cancer in with chemotherapy and radiation and right partial mastectomy, HFpEF, asthma, restless leg, history of pancytopenia, prediabetes, hypertension, 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 Admitted to medicine for intractable pain. Started on abx for CAP. Diagnosed with complex regional pain syndrome, started on decadron and pregablin with much improvement. Stopped tramadol, started oxycodone to reduce serotonergic effects of tramadol. Left knee noted to have torn acl, ortho consulted, patient given brace. PT/OT worked with patient, recommended rehab which was denied. Patient discharged home with outpatient PT/OT, referrals sent for home health. 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 Her paralysis is nearly resolved but does require having small, soft foods and it is noticeably worse when she is under stress. Pt is no longer on meds for amyloidosis. She has recent history of cellulitis completing a course of augmentin. Today she presents to the hospital with intractable right leg pain which has been o ngoing for 4 days of constant throbbing, burning pain that goes down into the foot and up to the hip but does not involve the back. She has been using acetaminophen, tramadol around the clock without relief. Pt was given two doses of MS IV here without significant improvement. Dialudid 0.5 mg IV was administered around 10 am and she now is rating her pain a 3/10 and feel much more comfortatble at my time of visit. Daughter is with her at bedside and supports the history. Surgical Hx: colonoscopy, cystoscopy, EGDs, A-port placement, right breast partial mastectomy with lymphadenectomy, bilateral removal of oviducts, tonsillectomy, adenoidectomy, repair of inguinal hernia, total abdominal hysterectomy with removal of tubes. Family Hx: Significant for father had heart disorder. Maternal grandfather has heart disorder; maternal grandmother has heart disorder. Paternal grandfather has diabetes. Social Hx: Lives at home with , has two daughters who are involved in her care. No alcohol, tobacco or illicit substance use. Discharge Exam Gen: A&O 3 NAD HEENT: NCAT, EOMI, not icteric. External ears normal. No rhinorrhea. Moist mucous membranes. Neck: Supple, full range of motion, no observable masses, No meningeal sign. Lungs: No Respiratory distress. CV: RRR, no edema. Abdomen: Soft, nondistended, No rebound tenderness. MSK: No joint swelling, no redness. Tenderness to palpation in RLE, sensitivity to touch and to deeper palpation. Left knee in brace Skin: No rashes, petechiae, lesions. Normal color per patient. Neuro: right facial droop chronic Psych: Appropriate for situation. Updated Medication List Medication Instructions Recorded Confirmed Type acetaminophen 500 mg tablet 0 mg PO Q6H PRN Pain 09/22/19 11/24/24 History albuterol sulfate 2.5 mg/3 mL 2.5 mg inhalation Q4H PRN 09/22/19 11/24/24 History (0.083 %) solution for nebulization Shortness Of Breath Or Wheezing albuterol sulfate 90 mcg/actuation 0 puff inhalation Q4H PRN Wheezing 09/22/19 11/24/24 History aerosol inhaler (ProAir HFA) aspirin 81 mg tablet 81 mg PO DAILY 10/12/24 11/24/24 History ondansetron HCl 4 mg tablet 4 mg PO Q6H PRN n/v 10/12/24 11/24/24 History triamcinolone acetonide 0.5 % 0 applic topical BID 10/12/24 11/24/24 History topical cream furosemide 20 mg tablet 20 mg PO DAILY 11/17/24 11/24/24 History potassium chloride 10 mEq 20 meq PO DAILY 11/17/24 11/24/24 History tablet,extended release amoxicillin 500 mg-potassium 1 tab PO BID 3 days #6 tabs 11/27/24 Rx clavulanate 125 mg tablet (Augmentin) dexamethasone 4 mg tablet 4 mg PO DAILY 4 days #4 tabs 11/27/24 Rx diclofenac sodium 1 % topical gel 4 g EXT Q12 #100 grams 11/27/24 Rx (Voltaren Arthritis Pain) doxycycline hyclate 100 mg capsule 100 mg PO BID 3 days #6 caps 11/27/24 Rx meloxicam 7.5 mg tablet 7.5 mg PO DAILY PRN severe pain 11/27/24 Rx throughout day 14 days #14 tabs naloxone 4 mg/actuation nasal 1 spray intranasal ONCE PRN opioid 11/27/24 Rx spray (Narcan) overdose #2 ea oxycodone 5 mg tablet 5 mg PO Q4 PRN pain #30 tabs 11/27/24 Rx pregabalin 75 mg capsule (Lyrica) 75 mg PO Q8H 30 days #90 caps 11/27/24 Rx Hospital Stay Data Consultations 11/24/24 11:32 ED Decision to Admit Stat 11/24/24 12:49 Consult Vascular Surgery Routine 11/26/24 08:32 Consult Orthopedic Surgery Routine Diagnostic Imagining Performed 11/24/24 06:41 CT lumbar spine wo con Stat 11/24/24 07:00 US leg [US venous doppler LE RT] Stat 11/24/24 09:24 CTA LE RT w and wo if don [CT angio LE RT w inc wo if don] Stat 11/25/24 14:33 MR lower leg RT wo/w con Urgent 11/25/24 15:36 MR knee LT wo con Urgent Pending Results Patient Have Any Pending Studies at Discharge: No Discharge Instructions Given to Patient (Per Discharging Provider) 1. Please follow up with PC (for complex regional pain syndrome of RLE), ortho (for left knee), home PT/OT. 2. Please take pain medications as prescribed. -take meloxicam in AM if pain is getting worse over next few days -oxycodone prn for severe left knee pain (likely will not help bilateral feet tingling) -continue taking pregablin 3. Please wear ortho brace throughout day on left knee for additional support and utilize walker at home. Total Time Total Time Spent Total Time Spent (In Minutes): I spent a total of 35 minutes in direct patient care, including [id number] time with the patient and/or family, reviewing medical records, ordering and reviewing diagnostic tests, and coordinating care with other healthcare providers. This time includes: history taking, physical examination, medical decision making, counseling, ECG interpretation, imaging interpretation, lab interpretation, orders, and education, excluding time spent in the performance of separately billed services.
== END 2024-11-27 19:30 | disposition home or self-care (01) | DRG 74 ==
LOC: ED 06:13 → SUATTDRO 12:40 → 2W 12:40 → 3N 11-26 22:58

== ENCOUNTER 2025-03-24 11:49 | Inpatient (IN) ==
--- NOTE | 2025-03-24 15:10 | Emergency Department Note ---
History of Present Illness General Chief complaint: Illness Time Seen by Provider: 03/24/25 14:38 History of Present Illness This is a 74-year-old female the presents to the emergency department via private vehicle with complaints of "illness". The patient states that for the past week now she has been dealing with progressive fluid retention in her lower extremities. She has doubled her furosemide per recommendations but continues with progressive lower extremity edema. She feels like there is also puffiness to the body in addition to leg swelling. She denies any fevers or chills. No nausea or vomiting. No chest pain or shortness of breath. 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 The patient does note that oftentimes she will wear compression stockings however cannot do so secondary to the progressive lower extremity edema. Home Medications Medication Instructions Recorded Confirmed Type acetaminophen 500 mg tablet 500 mg PO TID PRN Pain 09/22/19 03/24/25 History aspirin 81 mg tablet 81 mg PO DAILY 10/12/24 03/24/25 History furosemide 20 mg tablet 40 mg PO QAM 11/17/24 03/24/25 History potassium chloride 10 mEq 20 meq PO DAILY 11/17/24 03/24/25 History tablet,extended release diclofenac sodium 1 % topical gel 4 g EXT Q12 #100 grams 11/27/24 03/24/25 Rx (Voltaren Arthritis Pain) naloxone 4 mg/actuation nasal 1 spray intranasal ONCE PRN opioid 11/27/24 03/24/25 Rx spray (Narcan) overdose #2 ea oxycodone 5 mg tablet 5 mg PO Q4 PRN pain #30 tabs 11/27/24 03/24/25 Rx pregabalin 100 mg capsule 100 mg PO TID 03/24/25 03/24/25 History Allergies Allergy/AdvReac Type Severity Reaction Status Date / Time Sulfa (Sulfonamide Allergy Unknown Rash Verified 11/29/24 08:44 Antibiotics) Past Med/Surg History Problem List (Updated 03/24/25 @ 21:28 by Harris De Dios PA-C) Complex regional pain syndrome of lower extremity Chronic heart failure with preserved ejection fraction (HFpEF) Bilateral lower extremity edema (Acute) Effusion, left knee Left knee pain Intractable pain (Acute) Acute pain of right lower extremity (Acute) Traumatic open wound of lower leg (Acute) Venous ulcer Edema Chronic venous insufficiency (Chronic) Abnormal ankle brachial index Leukocytosis (Acute) Hypokalemia (Acute) Hypomagnesemia (Acute) History of bone marrow transplant (Acute) Hyponatremia SOB (shortness of breath) Fever [place] ([place]) amyloidosis Nephrotic syndrome Wells's palsy Restless leg syndrome Diastolic dysfunction Paroxysmal supraventricular tachycardia History of breast cancer Bilateral pulmonary embolism (Acute) Hypokalemia (Acute) Medical History (Updated 03/24/25 @ 21:28 by Harris De Dios PA-C) History of multiple myeloma Chronic cough Asthma Myopathic disease Encephalitis Wheezing Hemoptysis Elevated d-dimer Surgical History S/P inguinal hernia repair S/P partial mastectomy S/P tonsillectomy S/P LILIYA-BSO Family History Family/Other No problems noted. Father Heart disease Social History (Updated 03/24/25 @ 18:35 by EBEN Rosen) Smoking Status: Never smoker Second Hand Exposure: No; Do You Dip or Chew Tobacco: No; Tobacco Cessation Education Requested by Patient: No Hx Alcohol Use: No Hx Substance Use: No Preferred Language: Lithuanian Communication Ability: Effective Quality Assurance Engineer Required: No Beliefs That Will Affect Care: None marital status: Current Living Situation: Spouse Other Information That Helps Us Care for You: No Feels Safe at Home: Yes Safety Concerns: Feels Safe At This Time Assistive Devices: Cane and Glasses Review of Systems A total of 10 systems reviewed and were otherwise negative Physical Exam Vital Signs Vital Signs - 24 hr 03/24/25 13:55 03/24/25 15:36 03/24/25 15:38 Pulse Rate 90 89 Pulse Rate [Apical] 87 Pulse Rate from SpO2 Sensor 90 Respiratory Rate 22 14 Respiratory Effort / Characteristics Non-Labored Spontaneous Respiratory Depth Normal Respiratory Pattern Regular Blood Pressure [Left Arm] 125/86 Blood Pressure Mean Blood Pressure Mean [Left Arm] 99 Pulse Oximetry 96 97 Oxygen Delivery Method Room Air Sepsis New/Unexplained Change in Mental Status Sepsis Action Taken by Nursing 03/24/25 15:42 03/24/25 16:32 03/24/25 16:39 Pulse Rate 84 Pulse Rate [Apical] Pulse Rate from SpO2 Sensor 85 Respiratory Rate 16 Respiratory Effort / Characteristics Respiratory Depth Respiratory Pattern Blood Pressure [Left Arm] Blood Pressure Mean 91 Blood Pressure Mean [Left Arm] Pulse Oximetry 96 Oxygen Delivery Method Sepsis New/Unexplained Change in Mental Status N/A Sepsis Action Taken by Nursing No Action Required 03/24/25 16:39 03/24/25 16:39 03/24/25 16:39 Pulse Rate Pulse Rate [Apical] Pulse Rate from SpO2 Sensor Respiratory Rate Respiratory Effort / Characteristics Respiratory Depth Respiratory Pattern Blood Pressure [Left Arm] Blood Pressure Mean 91 91 91 Blood Pressure Mean [Left Arm] Pulse Oximetry Oxygen Delivery Method Sepsis New/Unexplained Change in Mental Status Sepsis Action Taken by Nursing 03/24/25 16:39 03/24/25 16:39 03/24/25 16:42 Pulse Rate 83 82 Pulse Rate [Apical] Pulse Rate from SpO2 Sensor 82 81 Respiratory Rate 22 27 H Respiratory Effort / Characteristics Respiratory Depth Respiratory Pattern Blood Pressure [Left Arm] Blood Pressure Mean 91 Blood Pressure Mean [Left Arm] Pulse Oximetry 95 94 Oxygen Delivery Method Sepsis New/Unexplained Change in Mental Status Sepsis Action Taken by Nursing 03/24/25 16:51 03/24/25 17:00 03/24/25 17:12 Pulse Rate 76 69 79 Pulse Rate [Apical] Pulse Rate from SpO2 Sensor 75 66 77 Respiratory Rate 23 18 18 Respiratory Effort / Characteristics Respiratory Depth Respiratory Pattern Blood Pressure [Left Arm] Blood Pressure Mean Blood Pressure Mean [Left Arm] Pulse Oximetry 97 97 97 Oxygen Delivery Method Sepsis New/Unexplained Change in Mental Status Sepsis Action Taken by Nursing 03/24/25 17:21 03/24/25 17:30 03/24/25 17:42 Pulse Rate 66 77 78 Pulse Rate [Apical] Pulse Rate from SpO2 Sensor 67 76 76 Respiratory Rate 21 22 16 Respiratory Effort / Characteristics Respiratory Depth Respiratory Pattern Blood Pressure [Left Arm] Blood Pressure Mean Blood Pressure Mean [Left Arm] Pulse Oximetry 96 96 96 Oxygen Delivery Method Sepsis New/Unexplained Change in Mental Status Sepsis Action Taken by Nursing 03/24/25 17:50 03/24/25 18:02 03/24/25 18:11 Pulse Rate 76 75 77 Pulse Rate [Apical] Pulse Rate from SpO2 Sensor 77 76 74 Respiratory Rate 23 21 22 Respiratory Effort / Characteristics Respiratory Depth Respiratory Pattern Blood Pressure [Left Arm] Blood Pressure Mean Blood Pressure Mean [Left Arm] Pulse Oximetry 95 94 93 Oxygen Delivery Method Sepsis New/Unexplained Change in Mental Status Sepsis Action Taken by Nursing 03/24/25 18:20 Pulse Rate 75 Pulse Rate [Apical] Pulse Rate from SpO2 Sensor 76 Respiratory Rate 16 Respiratory Effort / Characteristics Respiratory Depth Respiratory Pattern Blood Pressure [Left Arm] Blood Pressure Mean Blood Pressure Mean [Left Arm] Pulse Oximetry 93 Oxygen Delivery Method Sepsis New/Unexplained Change in Mental Status Sepsis Action Taken by Nursing VITAL SIGNS - Vital signs and nursing notes were reviewed. Stable. GENERAL -74-year-old female appearing her stated age who is in no acute distress. Communicates well with provider and answers questions appropriately. SKIN -bilateral lower extremity edema with mild erythema. No open lesions. No crepitus or fluctuance. No lymphangitic streaking. HEAD - NC/AT. EYES - PERRL with EOMI bilaterally. Sclera anicteric. EARS - No deformities of external structures noted on gross examination bilaterally. NOSE - Midline and without cyanosis. No epistaxis or purulent drainage noted. Septum midline without deviation or septal hematoma noted. MOUTH/OROPHARYNX - Without perioral cyanosis. NECK -No nuchal rigidity. LUNGS - Chest wall symmetric without accessory muscle use, intercostals retractions, or central cyanosis. Normal vesicular breath sounds CTA B/L. No wheezes, rales, or rhonchi appreciated. CARDIAC - RRR ABDOMEN - Abdominal contour normal without pulsations or visible masses. BS normoactive all four quadrants. No tenderness, palpable masses, hepatosplenomegaly, or ascites noted. EXTREMITIES - No clubbing or peripheral cyanosis. +5/5 strength noted in UE/LE bilaterally. Patient is with full active plantarflexion and dorsiflexion bilaterally. NEUROLOGIC - Cranial nerves II through XII grossly intact. PSYCH -alert, oriented and pleasant on exam. Course Administered Medications Acetaminophen (Acetaminophen 325 Mg Tab) 650 mg PO Q4H PRN PRN Reason: pain/fever Stop: 04/23/25 20:46 Last Admin: 03/24/25 21:01 Dose: 650 mg Documented By: fabio Diclofenac Sodium (Diclofenac Sod 1% Gel 100 Gm Tube) 4 gm EXT Q12 [facility]; Protocol Stop: 04/23/25 20:59 Last Admin: 03/24/25 21:01 Dose: Not Given Documented By: fabio Furosemide (Furosemide 40 Mg/4 Ml Vial) 40 mg IV BID [facility] Stop: 04/23/25 20:59 Last Admin: 03/24/25 21:00 Dose: 40 mg Documented By: fabio Heparin Sodium (Porcine) (Heparin Sod 5,000 Unit/0.5 Ml Vial) 5,000 units SQ Q12 IVET Stop: 04/23/25 20:59 Last Admin: 03/24/25 21:00 Dose: 5,000 units Documented By: fabio Ceftriaxone Sodium (Rocephin) 2,000 mg in 50 mls @ 100 mls/hr IV Q24H IVET Stop: 04/03/25 22:59 Last Admin: 03/24/25 23:23 Dose: 100 mls/hr Documented By: fabio Pregabalin (Pregabalin 100 Mg Cap) 100 mg PO TID IVET Stop: 04/23/25 20:59 Last Admin: 03/24/25 21:01 Dose: 100 mg Documented By: fabio Medical Decision Making Laboratory Data 03/24/25 13:34 03/24/25 13:34 Lab Results 03/24/25 03/24/25 Range/Units 13:34 16:45 WBC 4.43 L (4.8-10.8) K/ul RBC 4.11 L (4.20-5.40) M/uL Hgb 11.5 L (12.0-16.0) g/dL Hct 35.4 L (37.0-47.0) % MCV 86.1 (80.0-100.0) fL MCH 28.0 (25.0-34.0) pg MCHC 32.5 (32.0-36.0) g/dL RDW Std Deviation 44.3 (36.4-46.3) fL RDW Coeff of Sanchez 14.1 (11.5-14.5) % Plt Count 199 (130-400) K/uL MPV 10.3 (9.4-12.4) fL Immature Gran % (Auto) 0.0 % Neut % (Auto) 61.2 % Lymph % (Auto) 23.0 % [place] % (Auto) 10.6 % Eos % (Auto) 4.5 % Baso % (Auto) 0.7 % Neut # (Auto) 2.71 (1.40-6.50) K/uL Lymph # (Auto) 1.02 L (1.20-3.40) K/uL [place] # (Auto) 0.47 (0.11-0.59) K/uL Eos # (Auto) 0.20 (0.00-0.50) K/uL Baso # (Auto) 0.03 (0.00-0.20) K/uL Immature Gran # (Auto) 0.00 L (0.01-0.20) K/uL PT 10.0 (9.0-12.0) Seconds INR 0.9 (0.9-1.1) APTT 25 (21-31) Seconds PTT Ratio 0.9 Sodium 142 (136-145) mmol/L Potassium 3.7 (3.5-5.1) mmol/L Chloride 106 (98-107) mmol/L Carbon Dioxide 29 (21-32) mmol/L Anion Gap 7 (3-11) BUN 35 H (6-23) mg/dl Creatinine 1.04 (0.6-1.2) mg/dl Est Cr Clr Drug Dosing Not Reportable eGFR 57.11 BUN/Creatinine Ratio 33.7 H (10-20) Glucose 118 H (70-99(Fasting)) mg/dl Calcium 9.7 (8.6-10.3) mg/dl Magnesium 2.1 (1.7-2.4) mg/dl Total Bilirubin 0.3 (0.2-1.0) mg/dl AST 18 (13-39) U/L ALT 9 (7-52) U/L Alkaline Phosphatase 123 H (34-104) U/L Total Creatine Kinase 142 (26-192) U/L Troponin I High Sens 7.8 (0-14) pg/ml B-Natriuretic Peptide 33 (0-100) pg/ml Total Protein 7.2 (6.0-8.3) gm/dl Albumin 4.1 (3.4-5.0) gm/dl Globulin 3.1 (2.5-4.0) gm/dl Albumin/Globulin Ratio 1.3 (0.9-2) Urine Color Yellow Urine Appearance Clear (Clear) Urine pH 6.5 (4.5-7.5) Ur Specific [place] 1.026 (1.000-1.030) Urine Protein Trace H (Negative) Urine Glucose (UA) Negative (Negative) Urine Ketones Negative (Negative) Urine Blood Trace H (Negative) Urine Nitrite Positive A (Negative) Urine Bilirubin Negative (Negative) Urine Urobilinogen Negative (Negative) Ur Leukocyte Esterase 2+ H (Negative) Urine WBC (Auto) >50 H (0-5) /hpf Urine RBC (Auto) 0-2 (0-2) /hpf U Hyaline Cast (Auto) 0-2 (0-2) /lpf U Epithel Cells (Auto) 0-2 (0-2) /hpf Urine Bacteria (Auto) 4+ H (None Seen) Urine Comment Imaging Data Radiologist's Impression: Chest X-Ray 03/24/25 00:00 XR chest 1V portable CLINICAL HISTORY: CHEST PAIN COMPARISON STUDY: 01/07/2020 FINDINGS: Stable cardiomegaly with mild pulmonary vascular congestion. Inspiration is shallow. There is stable mild stranding in the lung bases, likely atelectasis or scarring. No other consolidation or pleural effusion. No pneumothorax. IMPRESSION: Stable exam. ACT 112: Negative or not required by law. Electronically signed by: Jareth Vigil M.D. 03/24/2025 3:08 PM Venous Doppler Study 03/24/25 15:03 Technique: Venous ultrasound evaluation was performed utilizing grayscale, color Doppler and wave form evaluation. Images were also obtained with and without compression Findings: The bilateral common femoral, superficial femoral, popliteal, and visualized calf veins demonstrate normal anechoic lumens with full compressibility. Normal flow is seen on color Doppler images. Expected waveforms were produced with augmentation maneuvers There is a 3 x 1.9 x 0.7 cm right knee Hilliard's cyst Impression: 1. No evidence of deep venous thrombosis 2. Right knee Hilliard's cyst Electronically signed by Jorge Cedeño 03-24-2025 4:55 PM MDM Narrative Patient was seen and evaluated as above in room C9. Review was performed of nursing notes and vital signs. I did review pertinent previous visits and patient history. After obtaining a thorough history and physical examination the above work up was performed. Patient presents to us today for evaluation of bilateral lower extremity edema and sensation of puffiness to the body. The patient is on furosemide and has doubled her dose per recent recommendations over the past week. Despite this she notes progressive lower extremity edema. EKG per my interpretation reveals normal sinus rhythm at a rate of 92 bpm. QTc 455. QRS 74. No ST elevation on this rhythm tracing. Options of care were discussed with the patient. I will note the patient was seen during a period of unplanned EMR downtime. Please refer to uploaded documentation from additional staff members regarding further vital signs and care as they may not be readily present within this note as much of the visit occurred during downtime. Bilateral Doppler studies negative for DVT. Hilliard's cyst noted which is not felt to be contributory. Chest x-ray with stable findings noted cardiomegaly and mild pulmonary vascular congestion. There is mild pancytopenia noted without thrombocytopenia. Coags normal. There is mild elevation of BUN at 35. BNP within normal range as well as total CK and troponin. At this time with progressive lower extremity edema I do believe that further evaluation and management in the inpatient setting is warranted. Case discussed with the hospitalist service. Please refer to further documentation regarding her stay. GCS: 15 In the evaluation and treatment of this patient the following differential diagnoses were entertained: DVT, venous insufficiency, venous stasis, cellulitis, heart failure, among others Urinalysis did result later and patient currently in bed 2631, admitted to the hospital. I did relay the concerning urinalysis findings to the current hospitalist attending. Impression & Plan Bilateral lower extremity edema Discharge Plan Visit Data Chief Complaint: Illness ED Provider: Wero Lynn ED Midlevel Provider: Harris De Dios Discharge Problem: Bilateral lower extremity edema Patient Disposition: Admitted As Inpatient Condition: Good Discharge Instructions Interventions: ED Discharge Assessment Last Done: 03/24/25 19:46 Addendum March 24, 2025 23:25 I was consulted by the Advanced Practice Provider and was substantively involved in the patient's visit.This includes aspects of the HPI, MDM, diagnostic interpretations, and disposition/plan. I discussed the case with the [facility] and agree with the findings and plan as documented in WESTON Lanre's note.
[2025-03-24 15:24] LABS: Alanine Aminotransferase 9 U/L (7-52); Albumin Globulin Ratio 1.3 (0.9-2); Albumin Level 4.1 gm/dl (3.4-5.0); Alkaline Phosphatase 123 U/L (34-104); Anion Gap 7 (3-11); Bilirubin,Total 0.3 mg/dl (0.2-1.0); Blood Urea Nitrogen 35 mg/dl (6-23); Calcium 9.7 mg/dl (8.6-10.3); Carbon Dioxide 29 mmol/L (21-32); Chloride 106 mmol/L (98-107); Globulin 3.1 gm/dl (2.5-4.0); Glucose 118 mg/dl (70-99(Fasting)); Potassium 3.7 mmol/L (3.5-5.1); Sodium 142 mmol/L (136-145); Total Protein 7.2 gm/dl (6.0-8.3)
[2025-03-24 15:27] LABS: INR 0.9 (0.9-1.1); Partial Thromboplastin Time 25 Seconds (21-31); Prothrombin Time 10.0 Seconds (9.0-12.0)
[2025-03-24 15:34] LABS: Hematocrit (blood only) 35.4 % (37.0-47.0); Hemoglobin 11.5 g/dL (12.0-16.0); Immature Granulocytes # (auto) 0.00 K/uL (0.01-0.20); Immature Granulocytes % (auto) 0.0 %; Mean Corpuscular Hemoglobin 28.0 pg (25.0-34.0); Mean Corpuscular Volume 86.1 fL (80.0-100.0); Platelet Count 199 K/uL (130-400); RDW Standard Deviation 44.3 fL (36.4-46.3); Red Blood Count 4.11 M/uL (4.20-5.40); White Blood Count 4.43 K/ul (4.8-10.8)
[2025-03-24 15:47] LABS: Creatine Kinase 142 U/L (26-192); Magnesium 2.1 mg/dl (1.7-2.4)
--- NOTE | 2025-03-24 16:59 | Ultrasound Report ---
Technique: Venous ultrasound evaluation was performed utilizing grayscale, color Doppler and wave form evaluation. Images were also obtained with and without compression Findings: The bilateral common femoral, superficial femoral, popliteal, and visualized calf veins demonstrate normal anechoic lumens with full compressibility. Normal flow is seen on color Doppler images. Expected waveforms were produced with augmentation maneuvers There is a 3 x 1.9 x 0.7 cm right knee Hilliard's cyst Impression: 1. No evidence of deep venous thrombosis 2. Right knee Hilliard's cyst Electronically signed by Jorge Cedeño 03-24-2025 4:55 PM
[2025-03-24 17:02] LABS: Appearance Urine Clear (Clear); Bacteria Urine Automated 4+ (None Seen); Cast Urine Automated 0-2 /lpf (0-2); Epithelial Cell Urine Auto 0-2 /hpf (0-2); Glucose Urine UA Negative (Negative); RBC Urine Automated 0-2 /hpf (0-2); WBC Urine Automated >50 /hpf (0-5)
--- NOTE | 2025-03-24 17:18 | History & Physical Report ---
Date of Service March 24, 2025 Assessment & Plan (1) Bilateral lower extremity edema: (2) Chronic heart failure with preserved ejection fraction (HFpEF): (3) Chronic venous insufficiency: (4) Complex regional pain syndrome of lower extremity: (5) History of multiple myeloma: Plan 74 year old female with PMH significant for mild intermittent asthma, chronic HFpEF, ascending aorta dilation, hypertension, chronic venous insufficiency, history of SVT, nephrotic syndrome, CKD IIIa, RLS, complex regional pain syndrome, history of light chain amyloidosis, history of multiple myeloma s/p autologous stem cell transplant in biochemical remission, acquired hypogammaglobulinemia who presents to the ED on 03/24/2025 with bilateral lower extremity edema and weight gain x2 weeks. BLE edema ?Acute on chronic HFpEF Patient presenting with worsening BLE edema and 20lb weight gain over last 2 weeks Unresponsive to increased oral lasix dose outpatient Labs grossly unremarkable including BNP 33 Chest x-ray with mild pulmonary congestion Dopplers negative for DVT PAM in August 2023 revealed EF 60-64%, sigmoid septum, mild LVH, grade I DD, mild aortic valve regurg, mild MR/TR, mild enlargement proximal ascending thoracic aorta, pulmonary hypertension Plan: -Obtain updated echo -Start IV lasix 40mg bid -Monitor lytes and replete as needed -Consider Cardiology consult depending on echo results Chronic venous insufficiency Follows with Vascular Medicine s/p GSV ablation in December [address] Hawkins No current venous ulcers Legs appear erythematous and warm but patient notes this is her baseline Consider cellulitis as differential but with no fever or leukocytosis will monitor off antibiotics Complex regional pain syndrome Follows with Neurology Continue lyrica at decreased dose (100mg tid instead of 150mg tid) Tylenol PRN History of multiple myeloma Follows with Heme Onc In biochemical remission DVT Prophylaxis: SQ Heparin Code Status: FULL CODE - As per discussion at bedside with the patient. PCP: Angeles Keith Disposition: admit to [facility] Patient seen in collaboration with Dr. Savage. Please see addendum. I spent a total of 70 minutes coordinating, documenting and providing care for this patient excluding time spent in the performance of separately billed services or time spent by another provider/QHP. Admission and Anticipated Discharge Date Admission Date: March 24, 2025 History of Present Illness Chief Complaint: edema Primary Care Provider: Angeles Keith MD 74 year old female with PMH significant for mild intermittent asthma, chronic HFpEF, ascending aorta dilation, hypertension, chronic venous insufficiency, history of SVT, nephrotic syndrome, CKD IIIa, RLS, complex regional pain syndrome, history of light chain amyloidosis, history of multiple myeloma s/p autologous stem cell transplant in biochemical remission, acquired hypogammaglobulinemia who presents to the ED on 03/24/2025 with bilateral lower extremity edema. Patient reports she has a longstanding history of lower extremity edema for years related to chronic venous insufficiency. She takes lasix for this. Notes her legs swell from being on her feet and she can usually put her legs up or go to sleep and by morning the swelling is gone. However, over the last two weeks her lower extremity edema has been worsening unlike ever before. She also notes a 20lb weight gain in the last two weeks. Has a tightness that feels like a band compressing her chest and abdomen. She feels like she wants to stick a pin in herself to release fluid. Went to her PCP last week where her lyrica (for peripheral neuropathy/complex regional pain syndrome) dose was decreased and lasix dose was increased. She has been taking lasix 40mg daily with no improvement in her swelling. She received a message from her PCP yesterday checking in and was instructed to seek evaluation in the ED if her swelling does not improve in the next 24 hours. She denies fevers, chills, chest pain, SOB, abdominal pain, N/V/D, dysuria. She notes it is hard to walk because her feet are so swollen and she is unable to wear her knee braces or SCDs that she has at home. Allergies Allergy/AdvReac Type Severity Reaction Status Date / Time Sulfa (Sulfonamide Allergy Unknown Rash Verified 11/29/24 08:44 Antibiotics) Home Medications Medication Instructions Recorded Confirmed Type acetaminophen 500 mg tablet 500 mg PO TID PRN Pain 09/22/19 03/24/25 History aspirin 81 mg tablet 81 mg PO DAILY 10/12/24 03/24/25 History furosemide 20 mg tablet 40 mg PO QAM 11/17/24 03/24/25 History potassium chloride 10 mEq 20 meq PO DAILY 11/17/24 03/24/25 History tablet,extended release diclofenac sodium 1 % topical gel 4 g EXT Q12 #100 grams 11/27/24 03/24/25 Rx (Voltaren Arthritis Pain) naloxone 4 mg/actuation nasal 1 spray intranasal ONCE PRN opioid 11/27/24 03/24/25 Rx spray (Narcan) overdose #2 ea oxycodone 5 mg tablet 5 mg PO Q4 PRN pain #30 tabs 11/27/24 03/24/25 Rx pregabalin 100 mg capsule 100 mg PO TID 03/24/25 03/24/25 History Past Med/Surg History Problem List (Updated 03/24/25 @ 18:42 by EBEN Rosen) Complex regional pain syndrome of lower extremity Chronic heart failure with preserved ejection fraction (HFpEF) Bilateral lower extremity edema Effusion, left knee Left knee pain Intractable pain (Acute) Acute pain of right lower extremity (Acute) Traumatic open wound of lower leg (Acute) Venous ulcer Edema Chronic venous insufficiency (Chronic) Abnormal ankle brachial index Leukocytosis (Acute) Hypokalemia (Acute) Hypomagnesemia (Acute) History of bone marrow transplant (Acute) Hyponatremia SOB (shortness of breath) Fever Light chain (AL) amyloidosis Nephrotic syndrome Wells's palsy Restless leg syndrome Diastolic dysfunction Paroxysmal supraventricular tachycardia History of breast cancer Bilateral pulmonary embolism (Acute) Hypokalemia (Acute) Medical History (Updated 03/24/25 @ 18:42 by EBEN Rosen) History of multiple myeloma Chronic cough Asthma Myopathic disease Encephalitis Wheezing Hemoptysis Elevated d-dimer Surgical History S/P inguinal hernia repair S/P partial mastectomy S/P tonsillectomy S/P LILIYA-BSO Family History Family/Other No problems noted. Father Heart disease Social History (Updated 03/24/25 @ 18:35 by EBEN Rosen) Smoking Status: Former smoker Hx Alcohol Use: No Hx Substance Use: No Preferred Language: Divehi Communication Ability: Effective Can Sterilizer Required: No Beliefs That Will Affect Care: None marital status: Current Living Situation: Spouse Feels Safe at Home: Yes Assistive Devices: Cane Review of Systems Review of Systems: All systems reviewed & are unremarkable except as noted in HPI & below Physical Exam Physical Exam: General/Psych: WD/WN, sitting up in bed, NAD, conversing easily, R facial palsy Head: normocephalic, atraumatic Eyes: normal inspection, PERRL, conjunctivae pink, anicteric sclerae ENT: external ear and nose normal, oropharynx normal Neck: normal visual inspection, trachea midline Respiratory: normal respiratory effort, lungs with crackles in upper lobes bilaerally, no accessory muscle use Cardiovascular: regular rate and rhythm, +murmur Extremities: no cyanosis or clubbing, normal peripheral pulses, BLE edematous and taut 1+ on right Abdomen/GI: normal bowel sounds, soft, nontender Neurologic/MSK: A+Ox3, motor strength 5/5, moves all extremities Skin: no rashes, normal color, warm and dry, erythema and warmth of BLE with small scabs bilaterally Results & Data Results & Data Vital Signs (Past 12 Hours) Vital Signs Pulse Pulse Resp BP Pulse Ox O2 Del Method 03/24/25 15:38 89 03/24/25 13:55 87 22 125/86 96 Room Air Laboratory Results Short CBC 03/24/25 Range/Units 13:34 WBC 4.43 L (4.8-10.8) K/ul Hgb 11.5 L (12.0-16.0) g/dL Hct 35.4 L (37.0-47.0) % Plt Count 199 (130-400) K/uL BMP 03/24/25 13:34 Sodium 142 Potassium 3.7 Chloride 106 Carbon Dioxide 29 BUN 35 H Creatinine 1.04 Glucose 118 H Calcium 9.7 Cardiac Enzymes 03/24/25 Range/Units 13:34 Total Creatine Kinase 142 (26-192) U/L Liver Function 03/24/25 Range/Units 13:34 Total Bilirubin 0.3 (0.2-1.0) mg/dl AST 18 (13-39) U/L ALT 9 (7-52) U/L Alkaline Phosphatase 123 H (34-104) U/L Albumin 4.1 (3.4-5.0) gm/dl Urine 03/24/25 Range/Units 16:45 Urine Color Yellow Urine Appearance Clear (Clear) Urine pH 6.5 (4.5-7.5) Ur Specific [place] 1.026 (1.000-1.030) Urine Protein Trace H (Negative) Urine Glucose (UA) Negative (Negative) I have independently reviewed and interpreted patient's admitting labs including CBC, CMP, PTT, PT/INR, mag and troponin, CK, BNP Diagnostic Findings Chest X-Ray 03/24/25 00:00 XR chest 1V portable CLINICAL HISTORY: CHEST PAIN COMPARISON STUDY: 01/07/2020 FINDINGS: Stable cardiomegaly with mild pulmonary vascular congestion. Inspiration is shallow. There is stable mild stranding in the lung bases, likely atelectasis or scarring. No other consolidation or pleural effusion. No pneumothorax. IMPRESSION: Stable exam. ACT 112: Negative or not required by law. Electronically signed by: Jareth Vigil M.D. 03/24/2025 3:08 PM Venous Doppler Study 03/24/25 15:03 Technique: Venous ultrasound evaluation was performed utilizing grayscale, color Doppler and wave form evaluation. Images were also obtained with and without compression Findings: The bilateral common femoral, superficial femoral, popliteal, and visualized calf veins demonstrate normal anechoic lumens with full compressibility. Normal flow is seen on color Doppler images. Expected waveforms were produced with augmentation maneuvers There is a 3 x 1.9 x 0.7 cm right knee Hilliard's cyst Impression: 1. No evidence of deep venous thrombosis 2. Right knee Hilliard's cyst Electronically signed by Jorge Cedeño 03-24-2025 4:55 PM Code Status & VTE Plan Code Status Full Code Supervising Physician Co-Signing Physician Notes 74-year-old lady with PMH of mild intermittent asthma, chronic HFpEF, ascending aorta dilatation, HTN, chronic venous insufficiency, SVT, nephrotic syndrome, CKD stage IIIa, RLS, complex regional pain syndrome, light chain amyloidosis, multiple myeloma status post autologous stem cell transplant in remission, acquired hypogammaglobulinemia presents to the ED with complaint of progressive BLE swelling since about 4 weeks. Patient reports she has been started on Lyrica for about few months and her dose was increased to 150 mg tid for about a month ago, and then down to 100 mg 3 times daily about 2 days ago [employer] due to increasing leg swelling. patient does have some congestion and chest x-ray, denies shortness of breath. BLE swelling could be due to acute on chronic exacerbation of her underlying HFpEF or side effect of Lyrica or both. Will get an echo. Lasix IV 40 mg twice daily, monitor renal functions closely. Elevate lower extremity, no current ulcers or wounds noted in lower extremity. On exam: BLE edema 1-2+, occ rales on auscultation, room air, rest of the examination as above. Total time spent independently: 25 minutes. I have seen and examined the patient and have discussed the case with the provider above. I agree with the assessment and plan as stated.
[2025-03-24] MEDS ORDERED: POLYETHYLENE (MIRALAX) 17 GM PACK PO PRN (20:47)
[2025-03-24] MEDS ORDERED: ONDANSETRON INJ 2 MG/ML 2 ML VIAL IV PRN (20:47)
[2025-03-24] MEDS: HEPARIN SOD 5,000 UNIT/0.5 ML VIAL SQ SCH (21:00)
[2025-03-24] MEDS: FUROSEMIDE 40 MG/4 ML VIAL IV SCH (21:00)
[2025-03-24] MEDS: PREGABALIN 100 MG CAP PO SCH (21:01)
[2025-03-24] MEDS: ACETAMINOPHEN 325 MG TAB PO PRN (21:01)
[2025-03-24] MEDS: DICLOFENAC SOD 1% GEL 100 GM TUBE EXT SCH (21:01)
--- NOTE | 2025-03-24 22:42 | Communication Note ---
Date of Service: March 24, 2025 Made aware by ED provider of abnormal UA result UA WBC esterase positive, nitrite positive Patient with increased frequency symptoms as per RN. AP Complicated UTI Follow urine CS, ceftriaxone
[2025-03-24] MEDS: cefTRIAXone SODIUM 2,000 MG/50 ML BAG IV SCH (23:23)
[2025-03-25 06:31] LABS: Hematocrit (blood only) 32.8 % (37.0-47.0); Hemoglobin 10.5 g/dL (12.0-16.0); Mean Corpuscular Hemoglobin 27.5 pg (25.0-34.0); Mean Corpuscular Volume 85.9 fL (80.0-100.0); Platelet Count 168 K/uL (130-400); RDW Standard Deviation 43.9 fL (36.4-46.3); Red Blood Count 3.82 M/uL (4.20-5.40); White Blood Count 3.71 K/ul (4.8-10.8)
[2025-03-25 06:48] LABS: Anion Gap 8.0 (3-11); Blood Urea Nitrogen 32.0 mg/dl (6-23); Calcium 9.1 mg/dl (8.6-10.3); Carbon Dioxide 27.0 mmol/L (21-32); Chloride 107.0 mmol/L (98-107); Creatinine Clr Calc Pharmacy 50.8 ml/min; Glucose 89.0 mg/dl (70-99(Fasting)); Potassium 4.0 mmol/L (3.5-5.1); Sodium 142.0 mmol/L (136-145)
[2025-03-25] MEDS: PERFLUTREN LIPID MICROSPHERE (DEFINITY) IV ONE (07:54)
[2025-03-25] MEDS: ASPIRIN 81 MG ECTAB PO SCH (08:21)
--- NOTE | 2025-03-25 11:06 | Hospitalist Progress Note ---
Date of Service March 25, 2025 Assessment & Plan (1) Acute on chronic heart failure with preserved ejection fraction: (2) Acute right ventricular heart failure: (3) E. coli UTI: (4) Complex regional pain syndrome of lower extremity: (5) Chronic venous insufficiency: Plan Patient 74-year-old female based on history and previous echocardiogram seems to have acute on chronic heart failure with most of her symptoms and edema in her abdomen and lower extremities. Has not responded significantly to current Lasix regimen. Continue IV Lasix, add Zaroxolyn Continue to monitor electrolytes and renal function Urine culture is growing E. coli, patient may have had some symptoms, will transition to oral antibiotics. Echocardiogram report pending Therapies Home medications as prescribed Admission and Anticipated Discharge Date Admission Date: March 24, 2025 Subjective Patient states she feels her breathing is a little better. Has not noticed a whole lot decrease of her swelling. Thought she would be urinating a lot more. Does confirm that she has slowly gained weight and edema over the past multiple weeks. Physical Exam Physical Exam: Constitutional: Alert, nontoxic, no respiratory distress HEENT: Mucous membranes moist. Lungs: Decreased breath sounds, no rales, no wheezes CV: S1-S2, regular Abdomen: Soft, nontender, nondistended, some edema in the pannus Extremities: 2-3+ edema lower extremities, pitting edema in posterior thighs and dependent areas Neuro: No focal deficits Psych: Cooperative, normal mood Results & Data Results & Data Vital Signs (Past 12 Hours) Vital Signs Temp Pulse Pulse Resp BP Pulse Ox O2 Del Method 03/25/25 09:08 Room Air 03/25/25 08:26 36.7 C 83 18 113/76 96 Room Air 03/25/25 07:27 83 03/25/25 03:41 37 C 66 18 124/76 93 Room Air 03/24/25 23:34 36.9 C 69 16 120/77 97 Room Air Diagnostic Findings Reviewed imaging, laboratory and diagnostic studies. Pertinent findings as below. WBCs 3.7 Hemoglobin 10.5 Electrolytes stable Creatinine 0.85 Urinalysis reviewed Urine culture growing E. coli
--- NOTE | 2025-03-25 19:56 | Electrocardiogram Report ---
Test Reason : Blood Pressure : */* mmHG Vent. Rate : 92 BPM Atrial Rate : 92 BPM P-R Int : 136 ms QRS Dur : 74 ms QT Int : 368 ms P-R-T Axes : 27 8 0 degrees QTcB Int : 455 ms Normal sinus rhythm Inferior infarct (cited on or before 22-Sep-2019) Anterolateral infarct (cited on or before 22-Sep-2019) Abnormal ECG When compared with ECG of 30-Dec-2019 17:17, No significant change was found Confirmed by Quan Segovia ([id number]) on 03/25/2025 7:55:58 PM Referred By: REFERRED SELF Confirmed By: Quan Segovia
[2025-03-26 07:43] LABS: Anion Gap 10.0 (3-11); Blood Urea Nitrogen 40.0 mg/dl (6-23); Calcium 9.7 mg/dl (8.6-10.3); Carbon Dioxide 29.0 mmol/L (21-32); Chloride 101.0 mmol/L (98-107); Creatinine Clr Calc Pharmacy 36.9 ml/min; Glucose 93.0 mg/dl (70-99(Fasting)); Magnesium 2.0 mg/dl (1.7-2.4); Potassium 3.9 mmol/L (3.5-5.1); Sodium 140.0 mmol/L (136-145)
--- NOTE | 2025-03-26 11:17 | XCELERA ---
[id number]
--- NOTE | 2025-03-26 12:46 | Hospitalist Progress Note ---
Date of Service March 26, 2025 Assessment & Plan (1) Acute on chronic heart failure with preserved ejection fraction: (2) Acute right ventricular heart failure: (3) E. coli UTI: (4) Complex regional pain syndrome of lower extremity: (5) Chronic venous insufficiency: Plan Patient with acute on chronic heart failure with preserved ejection fraction, suspect most of her heart failure is right-sided due to pulmonary pretension that was seen on previous echocardiogram Continue IV diuresis today Continue to monitor intake and output and daily weight Yesterday Long discussion about titrating her off the Lyrica, can decrease dose again today Sister on phone during my discussion with the patient at bedside and updated Anticipate transitioning to oral diuretics tomorrow Admission and Anticipated Discharge Date Admission Date: March 24, 2025 Subjective This morning patient does feel as though we made some progress, she comments that she no longer feels like the "Blake mauricio boy." Physical Exam Physical Exam: Constitutional: Alert, no acute distress HEENT: Mucous membranes moist. Lungs: Decreased breath sounds, improved crackles and rales CV: S1-S2, regular Abdomen: Soft, nontender, nondistended Extremities: Edema significantly reduced in lower extremities, posterior thighs Neuro: No focal deficits Psych: Cooperative, normal mood Results & Data Results & Data Vital Signs (Past 12 Hours) Vital Signs Temp Pulse Pulse Resp BP Pulse Ox O2 Del Method 03/26/25 11:40 36.3 C L 80 20 93/70 L 95 Room Air 03/26/25 08:16 36.8 C 70 18 109/71 94 Room Air 03/26/25 07:13 71 03/26/25 04:11 108/69 03/26/25 04:00 36.6 C 77 20 89/53 L 92 Room Air 03/26/25 01:57 36.7 C 100 H 20 119/88 93 Room Air Diagnostic Findings Reviewed imaging, laboratory and diagnostic studies. Pertinent findings as below. Echocardiogram report reviewed, ejection fraction 50 to 55%, dilated atria, right ventricle systolic function normal Electrolytes stable Creatinine 1.17 Urine culture E. coli, pansensitive Intake and output reviewed, weight decreased from admission
[2025-03-26] MEDS: PREGABALIN 75 MG CAP PO SCH (13:37)
[2025-03-27 07:30] LABS: Hematocrit (blood only) 36.8 % (37.0-47.0); Hemoglobin 12.4 g/dL (12.0-16.0); Immature Granulocytes # (auto) 0.01 K/uL (0.01-0.20); Immature Granulocytes % (auto) 0.2 %; Mean Corpuscular Hemoglobin 28.1 pg (25.0-34.0); Mean Corpuscular Volume 83.3 fL (80.0-100.0); Platelet Count 268 K/uL (130-400); RDW Standard Deviation 43.5 fL (36.4-46.3); Red Blood Count 4.42 M/uL (4.20-5.40); White Blood Count 4.10 K/ul (4.8-10.8)
[2025-03-27 08:03] LABS: Anion Gap 13.0 (3-11); Blood Urea Nitrogen 65.0 mg/dl (6-23); Calcium 9.9 mg/dl (8.6-10.3); Carbon Dioxide 30.0 mmol/L (21-32); Chloride 98.0 mmol/L (98-107); Creatinine Clr Calc Pharmacy 28.8 ml/min; Glucose 96.0 mg/dl (70-99(Fasting)); Magnesium 2.0 mg/dl (1.7-2.4); Potassium 3.7 mmol/L (3.5-5.1); Sodium 141.0 mmol/L (136-145)
--- NOTE | 2025-03-27 10:10 | Hospitalist Progress Note ---
Date of Service March 27, 2025 Assessment & Plan (1) Acute on chronic heart failure with preserved ejection fraction: (2) Acute right ventricular heart failure: (3) E. coli UTI: (4) Complex regional pain syndrome of lower extremity: (5) Chronic venous insufficiency: Plan 74-year-old female with decompensated heart failure preserved ejection fraction has diuresed and symptomatically improved. Transition to oral diuretics, Lasix 60 mg daily Discontinue metolazone after today's dose Reviewed echocardiogram with patient Continue Keflex for UTI Encouraged activity Discussed titration down of her Lyrica which was at her request. She has not noticed any increase in her pain or painful neuropathy. Did discuss with her that the proprioception dysfunction that she has with her neuropathy really is not addressed with the medication such as gabapentin or Lyrica. There is not a really good medication for that. The medications are more for the painful neuropathy. That being the case we will continue her at the lower dose of Lyrica 75 mg. Anticipate discharge tomorrow provided patient tolerates transition to oral medications Recheck electrolytes and and renal function in a.m. Admission and Anticipated Discharge Date Admission Date: March 24, 2025 Subjective Patient continue to feel better, less fullness in her abdomen. Has noticed herself that her legs are less edematous. Physical Exam Physical Exam: Constitutional: Alert, nontoxic, no respiratory distress HEENT: Mucous membranes moist. Lungs: Decreased breath sounds, Rales significantly improved CV: S1-S2, regular Abdomen: Soft, nontender, nondistended Extremities: Significantly decreased edema, no edema in upper thighs remaining, skin a little bit looser in the lower extremities Neuro: No focal deficits Psych: Cooperative, normal mood Results & Data Results & Data Vital Signs (Past 12 Hours) Vital Signs Temp Pulse Pulse Resp BP Pulse Ox O2 Del Method 03/27/25 07:42 68 03/27/25 07:34 36.4 C L 78 16 129/78 96 Room Air 03/27/25 03:31 36.4 C L 78 18 99/65 L 93 Room Air 03/26/25 23:09 36.3 C L 105 H 18 104/69 93 Room Air Diagnostic Findings Reviewed imaging, laboratory and diagnostic studies. Pertinent findings as below. CBC reviewed, stable Creatinine 1.49, slightly increased but will need to except in the setting of her volume overload Phosphorus 6.1 Intake and output reviewed, -1.8 L over the last 24 hours
[2025-03-27] MEDS: FUROSEMIDE 20 MG TAB PO SCH (11:22)
[2025-03-27 20:17] VITALS: RESP 18
[2025-03-28 07:48] VITALS: BP 111/75; TEMP 97.7; O2SAT 96
[2025-03-28 07:49] LABS: Anion Gap 12.0 (3-11); Blood Urea Nitrogen 73.0 mg/dl (6-23); Calcium 9.6 mg/dl (8.6-10.3); Carbon Dioxide 28.0 mmol/L (21-32); Chloride 98.0 mmol/L (98-107); Creatinine Clr Calc Pharmacy 31.0 ml/min; Glucose 106.0 mg/dl (70-99(Fasting)); Magnesium 2.1 mg/dl (1.7-2.4); Potassium 3.2 mmol/L (3.5-5.1); Sodium 138.0 mmol/L (136-145)
[2025-03-28] MEDS: POTASSIUM CHLORIDE CRTAB 20 MEQ TABCR PO STA (08:46)
--- NOTE | 2025-03-28 10:24 | Discharge Summary ---
Discharge Summary Date of Service March 28, 2025 Principal Dx & Hospital Course #1 = Principal Diagnosis (1) Acute on chronic heart failure with preserved ejection fraction: (2) Acute right ventricular heart failure: (3) E. coli UTI: (4) Complex regional pain syndrome of lower extremity: (5) Chronic venous insufficiency: Plan Patient 74-year-old female who presented to the emergency room with increasing swelling, feeling as her abdomen is full and some more shortness of breath with exertion. Initially thought that it may be due to the Lyrica but also noted a 20 pound weight gain. She had increased her outpatient Lasix dose but had not seen any significant improvement. Evaluation in the emergency room was consistent with volume overload. She was referred for further evaluation. Patient was admitted to the hospital. She placed on IV Lasix. Urinalysis was also significantly abnormal and was started on antibiotics for presumed urinary tract infection. Patient had minimal response to the Lasix. Metolazone was added to the Lasix and she subsequently started to diurese. She completed a course of antibiotics for E. coli UTI while here in the hospital. She had significant decrease in her weight. Her edema in her upper thighs completely resolved and has significantly improved in her lower legs. Edema in her abdomen and the fullness in her abdomen also completely resolved. Echocardiogram showed normal ejection fraction. Unchanged from previous, however previous echoes did indicate she has some at least moderate pulmonary pretension. Her presentation was very consistent with cor pulmonale/right-sided heart failure. She was transition to oral Lasix. Her electrolytes were replaced. She was also quite concerned that the increasing Lyrica dosing over the past few weeks was contributing to her edema. She is unsure that it has really helped at all or significantly with her symptoms. We started to titrate her Lyrica down. At the time of discharge we had her titrated from 100 mg 3 times daily to 75 mg 3 times daily. Encouraged her to talk to her providers as to if she would want to titrate it down anymore or see how she does on this lower dose. She is on room air. Her other vital signs are stable. She be discharged home to follow-up with her outpatient providers. Notes For Next Care Provider May need further adjustments of diuretics Monitor electrolytes and renal function Medication Changes From Visit Furosemide dose increased Potassium supplementation increased Lyrica dose decreased Admission HPI Per Admitting Provider 74 year old female with PMH significant for mild intermittent asthma, chronic HFpEF, ascending aorta dilation, hypertension, chronic venous insufficiency, history of SVT, nephrotic syndrome, CKD IIIa, RLS, complex regional pain syndrome, history of light chain amyloidosis, history of multiple myeloma s/p autologous stem cell transplant in biochemical remission, acquired hypogammaglobulinemia who presents to the ED on 03/24/2025 with bilateral lower extremity edema. Patient reports she has a longstanding history of lower extremity edema for years related to chronic venous insufficiency. She takes lasix for this. Notes her legs swell from being on her feet and she can usually put her legs up or go to sleep and by morning the swelling is gone. However, over the last two weeks her lower extremity edema has been worsening unlike ever before. She also notes a 20lb weight gain in the last two weeks. Has a tightness that feels like a band compressing her chest and abdomen. She feels like she wants to stick a pin in herself to release fluid. Went to her PCP last week where her lyrica (for peripheral neuropathy/complex regional pain syndrome) dose was decreased and lasix dose was increased. She has been taking lasix 40mg daily with no improvement in her swelling. She received a message from her PCP yesterday checking in and was instructed to seek evaluation in the ED if her swelling does not improve in the next 24 hours. She denies fevers, chills, chest pain, SOB, abdominal pain, N/V/D, dysuria. She notes it is hard to walk because her feet are so swollen and she is unable to wear her knee braces or SCDs that she has at home. Admission Exam Per Admitting Provider See H&P Discharge Exam Constitutional: Alert HEENT: Mucous membranes moist. Lungs: Clear to auscultation, decreased, no wheezes rales or rhonchi CV: S1-S2, regular Abdomen: Soft, nontender, nondistended Extremities: Upper thigh/posterior thigh edema completely resolved, lower extremity edema improved, still some hard venous stasis edema and the lower half of her legs. Neuro: No focal deficits Psych: Cooperative, normal mood Updated Medication List Medication Instructions Recorded Confirmed Type acetaminophen 500 mg tablet 500 mg PO TID PRN Pain 09/22/19 03/24/25 History aspirin 81 mg tablet 81 mg PO DAILY 10/12/24 03/24/25 History potassium chloride 10 mEq 20 meq PO DAILY 11/17/24 03/24/25 History tablet,extended release diclofenac sodium 1 % topical gel 4 g EXT Q12 #100 grams 11/27/24 03/24/25 Rx (Voltaren Arthritis Pain) naloxone 4 mg/actuation nasal 1 spray intranasal ONCE PRN opioid 11/27/24 03/24/25 Rx spray (Narcan) overdose #2 ea oxycodone 5 mg tablet 5 mg PO Q4 PRN pain #30 tabs 11/27/24 03/24/25 Rx pregabalin 100 mg capsule 100 mg PO TID 03/24/25 03/24/25 History furosemide 20 mg tablet 60 mg (3 x 20 mg) PO QAM #90 tabs 03/28/25 Rx pregabalin 75 mg capsule (Lyrica) 75 mg PO TID #90 caps 03/28/25 Rx Hospital Stay Data Consultations 03/24/25 17:08 ED Decision to Admit Stat Diagnostic Imagining Performed 03/24/25 15:03 US venous doppler [facility] Stat Reviewed imaging, laboratory and diagnostic studies. Pertinent findings as below. Echocardiogram shows ejection fraction 50 to 55%, moderate LVH, moderately dilated atria, no significant changes when compared to previous echo WBCs 4.1 Hemoglobin 12.4 Platelets of 268 Creatinine 1.40 Potassium 3.2, replaced prior to discharge urine culture grew out pansensitive E. coli that was completely treated in the hospital Pending Results Patient Have Any Pending Studies at Discharge: No Discharge Instructions Given to Patient (Per Discharging Provider) Call 911 and go to the Emergency Room if: * You have tightness or pain in your chest that does not go away with rest or Nitroglycerin * You are very short of breath even with rest Call your doctor if any of the following symptoms or problems start or get worse: * Shortness of breath or difficulty breathing * Wake up at night short of breath * Chest pain * Cough * Swelling of your hands, fee, or legs * More fatigued or tired with your normal activity * Palpitations - sudden fast heart beats WEIGHT * Weigh yourself every morning after using the bathroom. * Use the same scale. * Wear the same amount of clothing. * Write your weight down on your chart. * Call your doctor if you gain more than 2-3 pounds in 1-2 days. MEDICATIONS * Use this discharge instruction sheet for instructions. * Take your medications at the time your doctor ordered. * Do not skip a dose of your medicines. * If you miss a dose of medicine, take as soon as possible, but DO NOT DOUBLE A DOSE. * Read your medicine information when you get home. * Know all of the side effects of your medicine. * Call your doctor's office if you have any side effects. * Be sure all of your doctors know what medicine and herbs you take (including cold, flu, and herbal medicine). * Pain Medicine: If you do not get relief from your pain, please call your doctor for help. Take the following with you to your follow-up doctor appointments: * Weight Chart * Medication List * List of questions Do not drink excessive alcohol, beer or wine. Total Time Total Time Spent Total Time Spent (In Minutes): 38
[2025-03-28 10:38] VITALS: PULSE 91
[2025-03-28] MEDS: POTASSIUM CHLORIDE CRTAB 20 MEQ TABCR PO ONE (11:03)
== END 2025-03-28 15:50 | disposition home or self-care (01) | DRG 291 ==
LOC: ED 11:49 → 2W 18:24 → SUATTDRO 18:24 → 2W 19:46